=== PATIENT | female | born 1965 | race Hispanic/Latino ===

== ENCOUNTER 2018-05-14 12:58 | Outpatient (CLI) | payer MEDICARE | END 2018-05-14 12:59 | disposition home or self-care (01) | LOC: BICMAMMO 12:58 | PROVIDERS: ATTEND Family Medicine | DX: Z12.31 Encounter for screening mammogram for malignant neoplasm of breast (principal); Z80.3 Family history of malignant neoplasm of breast | CPT/HCPCS: 77063; 77067 ==

== ENCOUNTER 2018-08-30 23:27 | Inpatient (IN) | payer MEDICARE ==
[2018-08-31] MEDS ORDERED: Morphine 4 MG/ML VIAL ONE (00:08)
[2018-08-31] MEDS ORDERED: MEROPENEM 1 GM/50 ML 1 GM in Premix Bag 1 BAG IVPB SCH (00:15)
[2018-08-31] MEDS ORDERED: diphenhydrAMINE 50 MG/ML VIAL ONE (00:30)
[2018-08-31] MEDS ORDERED: Dextrose 50% Abboject 50 ML SYRINGE SLOW IVP PRN ×2 (00:47→08:25)
[2018-08-31] MEDS ORDERED: Dextrose 5% in Water 1,000 ML IV PRN ×2 (00:47→08:25)
[2018-08-31] MEDS ORDERED: Insulin Regular 300 UNITS/3 ML VIAL SC PRN ×2 (00:47)
[2018-08-31] MEDS ORDERED: Sodium Chloride 0.9% 1,000 ML IV SCH (01:00)
--- NOTE | 2018-08-31 07:53 | RAD ---
THREE VIEWS OF THE RIGHT FOOT: DATE: 08/30/2018. COMPARISON: 11/29/2016. HISTORY: Right foot surgery, nonhealing. FINDINGS: There is dislocation of the 5th metatarsophalangeal joint. There is bone loss involving the lateral aspect of the distal portion of the 5th metatarsal with an overlying skin ulceration. No displaced f racture identified. There is soft tissue swelling in the region of the distal 5th metatarsal. IMPRESSION: Soft tissue swelling overlying the region of the distal 5th metatarsal with a skin ulceration. There is also loss of cortical bone involving the distal aspect of the 5th metatarsal which may signify os teomyelitis and there is dislocation of the 5th metatarsophalangeal joint which could represent septi c arthritic. Followup MRI advised. POS: LILIANA
[2018-08-31] MEDS ORDERED: Ondansetron ODT 4 MG TAB PO PRN (08:25)
[2018-08-31] MEDS ORDERED: Zolpidem Tartrate 5 MG TAB PO PRN (08:25)
--- NOTE | 2018-08-31 09:55 | HP ---
PRIMARY CARE PHYSICIAN: Humaira Lutz, Primary Care Provider, referred to the [facility] by [facility] after transferred from [facility]. She is referred for osteomyelitis. The patient states she has a hard callus over the lateral aspect of her right foot. She had surgery on her right foot a year ago with removal of bone, this had healed with this callus. Three days ago, the callus cracked and started oozing pus and blood. She states she has had a low-grade temperature with some chills. She has pain in the foot. She also states that she had amputation of the small toe on the left foot last year, also this was done at [facility] in [place]. PAST MEDICAL HISTORY: Diabetes mellitus, type 2 with chronic kidney disease; hypertension; cardiomyopathy; COPD; peripheral arterial disease. She did not bring her medicines. She was able to remember some of her medicines. It has been requested that she have someone bring her medicines in so that we can see what she is on. ALLERGIES: NO KNOWN DRUG ALLERGIES. PAST SURGICAL HISTORY: She had a coronary artery bypass graft at [facility] in [place] in 2018. She had a cardiac cath here in 2012. She has had a tonsillectomy. She had a femoral-popliteal bypass on the right leg in 2017 here. FAMILY HISTORY: Pertinent for coronary artery disease and diabetes mellitus. SOCIAL HISTORY: . Full code status. , next of kin. Continues to smoke up to one pack a day. Denies alcohol. REVIEW OF SYSTEMS: HEAD: Occasional headache. No dizziness or fainting. EYES: Blurry vision at times. No double vision or flashing lights. EARS, NOSE, AND THROAT: No ear pain or drainage. No nasal bleeding. No trouble swallowing. CARDIAC: No chest pain, orthopnea, or paroxysmal nocturnal dyspnea. RESPIRATION: Occasional dry cough. No wheezing, asthma. GASTROINTESTINAL: She had one episode of nausea and vomiting last evening. No blood. No abdominal pain. No melena. No diarrhea. GENITOURINARY: No hematuria or dysuria. MUSCULOSKELETAL: Pain in her right foot at the site of the ulcer. No swelling in her legs. No specific joint pains. NEUROLOGIC: No strokes, seizures, or focal weakness. PSYCHIATRIC: No anxiety or depression. SKIN: She has the aforementioned callus draining on her lateral right foot. HEME/LYMPH: No tender or swollen lymph nodes in axilla, inguinal, or cervical area. PHYSICAL EXAMINATION: GENERAL: The patient is alert, oriented, cooperative, pleasant lady. VITAL SIGNS: Blood pressure 157/65, pulse 67, respirations 16, temperature 98.1, room air sat 96. HEENT: Examination of her head, eyes, ears, nose, and throat revealed pupils are equal, round, and reactive to light. Extraocular movements are intact. Sclerae white. Tympanic membranes are clear. Nose clear. Oral mucous membranes are wet. Dental hygiene is adequate. NECK: No jugular venous distention, adenopathy, or thyromegaly. CHEST: Clear to auscultation and percussion. HEART: Had a regular rate and rhythm. First and second heart sounds are clear. There are no appreciated murmurs or gallops. ABDOMEN: Soft. Bowel sounds are normal. There is no bruit, masses, or hepatosplenomegaly. EXTREMITIES: Reveal no cyanosis, clubbing, or edema. PULSES: Carotid, radial, and femoral pulses are palpable. Pedal pulses are not palpable. SKIN: Warm and dry with an open callus on the right lateral foot with some off-color drainage. HEME/LYMPH: No tender or swollen lymph nodes in the axilla, inguinal, cervical area. NEUROLOGIC: Cranial nerves II through XII are intact. Moves all extremities. DIAGNOSTIC IMPRESSION: EKG none available. It has been ordered. X-ray of the right foot reveals bone loss and possible osteomyelitis, reviewed by me. Laboratory done here. Sedimentation rate is elevated at 48. Laboratory done in [place] reveals white count of 10.0 with no left shift. Hemoglobin 11.8, platelet count 249,000. C-reactive protein was high at 8.11. Blood sugars were in the 200 to 500 range. Creatinine 2.24, BUN 39, chloride 89, CO2 of 29, sodium 132, potassium 3.9. ADMITTING DIAGNOSES: 1. Osteomyelitis of the right foot. 2. Diabetes mellitus, type 2 with chronic kidney disease stage 3. 3. Coronary artery disease, post coronary artery bypass graft. 4. Peripheral arterial disease, post femoral-popliteal bypass on the right. 5. Chronic obstructive pulmonary disease. 6. Hypertension. 7. Cardiomyopathy. 8. Continuing tobacco usage. PLAN: 1. MRI of the right foot. 2. Consult Dr. Max for peripheral arterial disease. 3. Accu-Chek sliding scale. 4. Hemoglobin A1c. 5. Obtain and reinstitute home medicines. Decision on consulting a surgeon will be made after the MRI. Job ID: [id number]
[2018-08-31] MEDS: Heparin 5,000 UNITS/ML VIAL SC SCH ×3 (10:11→21:17)
[2018-08-31] MEDS: Acetaminophen 325 MG TAB PO PRN ×3 (10:11→23:33)
[2018-08-31 11:47] LABS: Hemoglobin A1c 12.5 % (4.0-6.0)
[2018-08-31] MEDS: HumaLOG 300 UNITS/3 ML VIAL SC PRN ×3 (13:14→21:18)
[2018-08-31] MEDS ORDERED: Heparin 1,000 UNITS/ML VIAL ONE (15:00)
--- NOTE | 2018-08-31 15:57 | MRI ---
MRI OF RIGHT FOOT PERFORMED WITHOUT CONTRAST ENHANCEMENT: History: Right foot ulcer, evaluation for osteomyelitis. Comparison: Plain film examination 08-30-18. FINDINGS: The fifth metatarsal head is essentially absent. There is displacement of the little toe dorsally in relation to what would normally be the expected articulation. There is a soft tissue injury in this r egion. I do not see any evidence of any edema change of either the distal aspect of the fifth metatar venessa or the proximal phalanx of the little toe. The remainder of the metatarsal showed normal signal c gabino. IMPRESSION: Chronic appearing dislocation of the metatarsal phalangeal joint of the little toe with dorsal displa cement of the toe. No evidence for osteomyelitis. POS: LILIANA
--- NOTE | 2018-08-31 17:11 | PDOC.EVN ---
Event Note - Event Note Event Note: MRI ne for oste, start antibx, consult gen surg
--- NOTE | 2018-08-31 18:05 | CON ---
DATE OF CONSULTATION: 08/31/2018 CARDIOLOGY CONSULTATION REASON FOR CONSULTATION: Peripheral vascular disease. HISTORY OF PRESENT ILLNESS: Ms. Colorado is a very pleasant 52-year-old white female, who comes to the hospital for foot pain. She had callus on the right foot and it did not look infected. She actually saw Dr. Max, her primary packer fuser on and she was set up for vascular studies. She ended up noticing that the callus started to become red and it cracked and it started oozing pus and blood, had low-grade temperature with chills, so she decided to come in for evaluation. She has a history of significant peripheral vascular disease with previous femoropopliteal bypass on the right and she has had stents bilaterally in 2017, more recently by Dr. Max. She had an MRI earlier today that showed no evidence of osteomyelitis, so this is just an infected ulcer and she has reduced pulses distally, so Cardiology is being consulted for vascular advice. PAST MEDICAL HISTORY: 1. Type 2 diabetes. 2. Chronic kidney disease. 3. Hypertension. 4. History of ischemic cardiomyopathy, last EF that I can document is 33%. 5. COPD. 6. Peripheral vascular disease. PAST SURGICAL HISTORY: 1. Coronary artery bypass in [facility] in [place] in 2017. 2. Cardiac cath in 2012. 3. Tonsillectomy. 4. Femoropopliteal [place] [address] Mccollum in the right side. SOCIAL HISTORY: Smokes a pack a day. No alcohol. No drugs. OUTPATIENT MEDICATIONS: Include: 1. Entresto 24/ twice a day. 2. Atorvastatin 80 mg daily. 3. Plavix 75 mg a day. 4. Gabapentin 400 mg 3 times a day. 5. Levemir. 6. Ventolin inhaler p.r.n. 7. Iron supplements. 8. Humalog. 9. Coreg 25 mg b.i.d. 10. Aspirin 81 a day. 11. Trazodone 100 p.r.n. 12. Torsemide 20 mg twice a day. 13. Fluoxetine 40 mg a day. 14. Metolazone 5 mg a day. 15. Tizanidine 2 mg three times a day. FAMILY HISTORY: Mother with an PA. Father with an PA. ALLERGIES: NO KNOWN DRUG ALLERGIES. REVIEW OF SYSTEMS: A 12-point review of systems was done and was found to be negative unless stated in the history of present illness. PHYSICAL EXAMINATION: VITAL SIGNS: Temperature 97.6, pulse 73, respiratory rate 16, saturating 90% on room air, and blood pressure 155/65. GENERAL: Awake, alert, and oriented x3. No distress. HEENT: Normocephalic and atraumatic. NECK: Supple. LUNGS: Clear. CARDIOVASCULAR: S1 and S2. No S3 or S4. No murmurs. ABDOMEN: Soft. Positive bowel sounds. EXTREMITIES: No edema. There are reduced pulses, but they are palpable on the DP and PT. There is an ulcer oozing a slight amount of blood on the lateral aspect of the right foot. LABORATORY WORK: ESR was 48, CRP was 8.11. Hemoglobin A1c of 12.5. White count of 10, hemoglobin 11.8, hematocrit 36, platelet count 249. Chemistries with a sodium 132, potassium 3.9, chloride 89, carbon dioxide 29, anion gap 18, BUN 39, and creatinine 2.24, this is the high the creatinine has ever been; looking back, it was 1.76 on August 09; before that, it was throughout 2018 between 1.3 to 1.8. Glucose of 489, alkaline phosphatase of 194, albumin of 3.9, otherwise LFTs were normal. Lactic acid was normal. MRI of the foot was reviewed. ASSESSMENT AND PLAN: 1. Severe peripheral vascular disease. 2. Right lower extremity ulcer. IV antibiotics. No evidence of osteomyelitis on MRI. 3. Technically it is not quite yet nonhealing ulcer as she just developed this recently. 4. Her creatinine is high enough to not be able to do a CT angiogram at this time plus this is going up, so I would not risk injury to the kidneys at this time. 5. If this ulcer does not heal in the next one or two weeks, she may be a candidate for peripheral angiography with CO. This is an outpatient procedure, we would not do this inpatient as this is not available currently right in this hospital. Thank you for letting me to participate in the care of your patient. We will follow. Job ID: [id number]
[2018-08-31] MEDS: Acetaminophen/Codeine 30-300mg Tablet PO PRN ×2 (18:32→23:33)
[2018-08-31] MEDS: cefTRIAXone\\ROCEPHIN 1 GM in Sodium Chloride 0.9% 100 ML IVPB SCH (19:11)
[2018-08-31] MEDS ORDERED: Non-Formulary Item 1 EACH (Insulin Detemir [Levemir] 10 UNIT) SQ SCH (21:00)
[2018-08-31] MEDS: Insulin Glargine 10 UNITS in Pre-Filled Syringe 1 EACH SC SCH (21:16)
[2018-08-31] MEDS: Gabapentin 400 MG CAP PO SCH (21:16)
[2018-08-31] MEDS: Carvedilol 25 MG TAB PO SCH (21:16)
[2018-08-31] MEDS: Atorvastatin Calcium 40 MG TAB PO SCH (21:19)
[2018-08-31] MEDS: Sacubitril 24.5 MG/Valsartan 25.5 MG TABLET PO SCH (21:22)
[2018-09-01] MEDS: Acetaminophen/Codeine 30-300mg Tablet PO PRN ×3 (04:23→23:04)
[2018-09-01 05:47] LABS: #Eosinphils 0.1 thou/uL (0.0-0.7); #Monocytes 0.5 thou/uL (0.11-0.59); #Neutrophils 5.8 thou/uL (1.40-6.50); %Basophils 0.2 % (0.0-1.0); %Eosinophils 1.5 % (0.0-10.0); %Lymphocytes 23.8 % (21.0-51.0); %Monocytes 6.3 % (0.0-10.0); %Neutrophils 68.2 % (42.0-75.0); Hemoglobin 10.2 g/dL (12.0-16.0); Mean Corpuscular HGB CONC 33.6 g/dL (32.0-36.0); Mean Corpuscular Volume 95.3 fL (78.0-98.0); Mean Platelet Volume 8.3 fL (7.4-10.4); Platelet Count 249 thou/uL (130-400); RBC Distribution Width 11.5 % (11.5-14.5); Red Blood Cell (RBC) Count 3.18 mill/uL (4.20-5.40); White Blood Cell (WBC) Count 8.4 thou/uL (4.8-10.8)
[2018-09-01 06:02] LABS: Anion Gap 12 mmol/L (10-20); BUN (Urea Nitrogen) 25 mg/dL (9.8-20.1); Calc. Creatinine Clearance 75 mL/min (70-130); Calcium 8.6 mg/dL (7.8-10.44); Carbon Dioxide 26 mmol/L (22-29); Chloride 102 mmol/L (98-107); Estimated GFR-MDRD 48; Glucose 146 mg/dL (70-105); Potassium 3.8 mmol/L (3.5-5.1); Sodium 136 mmol/L (136-145)
[2018-09-01] MEDS: HumaLOG 300 UNITS/3 ML VIAL SC PRN ×3 (06:06→17:55)
[2018-09-01] MEDS: FLUoxetine HCl 20 MG CAP PO SCH (08:25)
[2018-09-01] MEDS: Sacubitril 24.5 MG/Valsartan 25.5 MG TABLET PO SCH ×2 (08:25→20:38)
[2018-09-01] MEDS: Clopidogrel Bisulfate 75 MG TAB PO SCH (08:25)
[2018-09-01] MEDS: Gabapentin 400 MG CAP PO SCH ×3 (08:26→20:38)
[2018-09-01] MEDS: Carvedilol 25 MG TAB PO SCH ×2 (08:26→20:38)
[2018-09-01] MEDS: Insulin Glargine 10 UNITS in Pre-Filled Syringe 1 EACH SC SCH ×2 (08:27→20:36)
[2018-09-01] MEDS: Heparin 5,000 UNITS/ML VIAL SC SCH (08:27)
[2018-09-01] MEDS ORDERED: Torsemide 20 MG TAB PO SCH (09:00)
--- NOTE | 2018-09-01 12:07 | PDOC.PN ---
- Subjective Encounter Start Date: 09/01/18 (f/u foot infection) Encounter Start Time: 12:05 Subjective: Pt c/o swelling in hands/arms/eyelids that is new. RN notes that pt -: received IVF in ER and on arrival to floor yesterday - Objective Resuscitation Status - Order Detail: 08/31/18 08:22 Resuscitation Status Routine Resuscitation Status: FULL: Full Resuscitation Vital Signs & Weight: Vital Signs (12 hours) Temp Pulse Resp BP Pulse Ox 09/01/18 11:00 98.1 F 69 14 143/64 H 09/01/18 07:00 98.1 F 67 14 135/60 93 L 09/01/18 04:20 97.8 F 79 18 116/62 92 L Weight Admit Weight 190 lb 14.4 oz Weight 190 lb 14.725 oz Result Diagrams: 09/01/18 05:17 09/01/18 05:17 Additional Labs: Accuchecks 09/01/18 08/31/18 08/31/18 06:06 21:03 16:32 POC Glucose 151 H 237 H 354 H Phys Exam - Physical Examination Constitutional: NAD Respiratory: no wheezing bilateral rales Cardiovascular: RRR 2/6 SANNA throughout Gastrointestinal: soft, non-tender, positive bowel sounds edema in hands left > right, no edema in bilateral feet Deviation from normal: wound on right lateral foot is dressed Dx/Plan (1) Diabetic foot ulcer Code(s): E11.621 - TYPE 2 DIABETES MELLITUS WITH FOOT ULCER; L97.509 - NON- PRESSURE CHRONIC ULCER OTH PRT UNSP FOOT W UNSP SEVERITY Status: Acute Qualifiers: Diabetes mellitus type: type 2 Laterality: right Non-pressure ulcer stage : unspecified non-pressure ulcer stage (2) Acute on chronic systolic (congestive) heart failure Code(s): I50.23 - ACUTE ON CHRONIC SYSTOLIC (CONGESTIVE) HEART FAILURE Status : Acute (3) Peripheral vascular disease Code(s): I73.9 - PERIPHERAL VASCULAR DISEASE, UNSPECIFIED Status: Chronic (4) Diabetes mellitus Code(s): E11.9 - TYPE 2 DIABETES MELLITUS WITHOUT COMPLICATIONS Status: Chronic Qualifiers: Diabetes mellitus type: type 2 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 Ordered another dose for the AM as well, and titrate to effect. Hold oral torsemide * transfer to tele for monitoring * monitor potassium * continue current abx and Gen Surgery following - pt s/p eval by Dr. Aguilar * continue other home meds * renal function improved today - monitor with diuresis * * dvt prophy - change to lovenox with renal dosing * gi prophy - not indicated * code status full * * reviewed plan of care with patient, no questions or further needs at end of eval
[2018-09-01] MEDS ORDERED: Furosemide 100 MG/10 ML VIAL SLOW IVP SCH (12:15)
[2018-09-01] MEDS ORDERED: Sodium Chloride 0.9% 10 ML ONE (13:32)
--- NOTE | 2018-09-01 15:15 | CON ---
DATE OF CONSULTATION: 09/01/2018 REQUESTING PHYSICIAN: Dr. Gill. PRIMARY CARE PHYSICIAN: Dr. Humaira Lutz. CHIEF COMPLAINT: Open draining wound, right foot. HISTORY OF PRESENT ILLNESS: The patient is a 52-year-old diabetic smoker, who has become something of a vasculopath in the spring. She presented with nonhealing wounds on her right foot and she was found to have an occluded right superficial femoral artery, although her arteriogram report describes three-vessel runoff to the foot. It notes that the posterior tibial artery was a small caliber vessel and had a high-grade stenosis at proximally. She underwent right suprageniculate femoral-popliteal bypass with reverse greater saphenous vein harvested from the ipsilateral leg and while her pedal pulses were not palpable, she had a palpable popliteal pulse and strongly dopplerable pulses in her dorsalis pedis, posterior tibial, and peroneal in the foot. Postoperatively, she healed her wounds. She recently presented with a callus at the lateral base of her right 5th toe at the MP joint. It cracked and drained purulent material. Discussions with Dr. Gill, who asked me to see the patient indicate that it seems to track somewhat, but there is no conclusive evidence of osteomyelitis seen on MRI. PAST MEDICAL HISTORY: Significant for hypertension, diabetes mellitus, coronary artery disease, having undergone coronary artery bypass grafting at [facility] in [place] in 2018, peripheral vascular disease in addition to the femoral-popliteal procedure in November of 2016. She reports having undergone lower extremity stenting procedures in [place] in 2018. HOME MEDICATIONS: 1. Coreg 25 mg b.i.d. 2. Lipitor 80 mg a day. 3. Plavix 75 mg a day. 4. Neurontin 400 mg t.i.d. 5. Prozac 40 mg a day. 6. Levemir insulin 10 units b.i.d. 7. Torsemide 40 mg a day. 8. Entresto one b.i.d. ALLERGIES: SHE DENIES ANY MEDICAL ALLERGIES. SOCIAL HISTORY: She continues to smoke about a pack of cigarettes a day. FAMILY HISTORY: Significant for coronary artery disease and diabetes mellitus. REVIEW OF SYSTEMS: Positive for some paresthesias in both feet and both upper arms. She denies any transient eye, speech, facial, or extremity symptoms consistent with TIAs. PHYSICAL EXAMINATION: GENERAL: She is in no distress and appears roughly 10 years older than her stated age. HEENT: She has no obvious xanthelasma. She has no JVD. She has bilateral carotid bruits. CHEST: Clear to auscultation. CARDIAC: She has a regular rate and rhythm. ABDOMEN: Soft, nontender. EXTREMITIES: She has palpable femoral pulses bilaterally, but I am not able to appreciate popliteal or pedal pulses. Capillary refill in her feet is about 1 second or perhaps a little bit less. She has about a cm open wound that almost seems to represent sloughing of callus over the right MP head with the resultant full-thickness wound, that wound is somewhat soupy. I am not able to clearly palpate or see any bone or cartilage within the wound. Plain films show a dislocation of the MP joint with some loss of cortex in the bone, but there are no changes on MRI to suggest osteomyelitis. LABORATORY DATA: Her white count was 10.0 on the night of the and was 8.4 this morning. Hemoglobin this morning was 10.2, platelets 249,000. On admission, her glucose was 489, BUN 39, creatinine 2.24. Alkaline phosphatase was 194, otherwise her LFTs were normal. Albumin was 3.9. This morning, her BUN is 25 and creatinine is 1.18, the glucose of 146. Her blood sugars have been ranging from about 150 to 350. Her hemoglobin A1c yesterday was 12.5. IMPRESSION AND RECOMMENDATIONS: The patient is probably going to need some degree of debridement, even if it is not much more involved than what wound care could take care of at the bedside for local wound care in terms of vascularity. I think she has adequate vascularity to heal what is ever necessary to deal with this wound locally. She has already established herself with Dr. Max. At this point, the noninterventional evaluation and management that I would be able to offer as well within his purview and at this point, I do not think she needs any intervention that I could offer that he could not, so I will be available on a p.r.n. basis. She probably ought to have carotid Dopplers of those have not been done recently. She certainly is doing herself no favors by continuing to smoke and needs to stop. She needs to have better control of her diabetes. Job ID: [id number]
--- NOTE | 2018-09-01 16:34 | PDOC.CTH ---
Cardiology Progress Note - Subjective More SOB today. Still has severe pain on foot. - Objective Vital Signs Temp Pulse Resp BP Pulse Ox 09/01/18 14:41 94 L 09/01/18 11:00 98.1 F 69 14 143/64 H 09/01/18 07:00 98.1 F 67 14 135/60 93 L Admit Weight 190 lb 14.4 oz Weight 180 lb 11.2 oz - Physical Examination General/Neuro: alert & oriented x3, NAD Neck: no JVD present Lungs: unlabored respirations, other: (Crackles at bases.) Heart: RRR Abdomen: NT/ND Extremities: + edema B (1+) - Telemetry Telemetry Rhythm: NSR - Labs Result Diagrams: 09/01/18 05:17 09/01/18 05:17 - Assessment/Plan 1. Foot ulcer, infected 2. Severe PVD. 3. RHONDA on CKD, improved,. 4. Acute on chronic systolic heart failure 5. Dilated CM Ef at 30-35% PLAN: - Continue IV abx and wound care - Agree with transfer to telemetry and IV lasix. - If creatinine remains stable may be able to do CT angiogram or more invasive intervention only if her wound is not healing, currently day 4.
--- NOTE | 2018-09-01 17:15 | PDOC.GSPN ---
Surgery Progress Note: Subj - Subjective Narrative: Patient was transferred to telemetry due to concerns of worsening heart failure and fluid overload. She is having a little less pain in her foot.The wound is clean without expressible purulence and the tissues look a little healthier. She still has some cellulitis. Vascular supply appears to be adequate to heal the wound per Dr. Calloway's evaluation. Continue current management. Surgery Progress Note: Obj - Vital signs Vital signs: Vital Signs - Most Recent Temp Pulse Resp BP Pulse Ox 98.5 F 72 18 144/60 H 93 L 09/01/18 16:52 09/01/18 16:52 09/01/18 16:52 09/01/18 16:52 09/01/18 16:52 Surgery Progress Note: Results - Labs Result Diagrams: 09/01/18 05:17 09/01/18 05:17 Lab results: Laboratory Results - last 24 hr 09/01/18 09/01/18 09/01/18 05:17 05:17 06:06 WBC 8.4 RBC 3.18 L Hgb 10.2 L Hct 30.3 L MCV 95.3 MCH 32.0 H MCHC 33.6 RDW 11.5 Plt Count 249 MPV 8.3 Neutrophils % 68.2 Lymphocytes % 23.8 Monocytes % 6.3 Eosinophils % 1.5 Basophils % 0.2 Neutrophils # 5.8 Lymphocytes # 2.0 Monocytes # 0.5 Eosinophils # 0.1 Basophils # 0.0 Sodium 136 Potassium 3.8 Chloride 102 Carbon Dioxide 26 Anion Gap 12 BUN 25 H Creatinine 1.18 H Estimated GFR (MDRD) 48 Glucose 146 H POC Glucose 151 H Calcium 8.6 09/01/18 12:32 WBC RBC Hgb Hct MCV MCH MCHC RDW Plt Count MPV Neutrophils % Lymphocytes % Monocytes % Eosinophils % Basophils % Neutrophils # Lymphocytes # Monocytes # Eosinophils # Basophils # Sodium Potassium Chloride Carbon Dioxide Anion Gap BUN Creatinine Estimated GFR (MDRD) Glucose POC Glucose 213 H Calcium
[2018-09-01] MEDS: cefTRIAXone\\ROCEPHIN 1 GM in Sodium Chloride 0.9% 100 ML IVPB SCH (18:23)
[2018-09-01] MEDS: Enoxaparin Sodium 30 MG/0.3 ML SYRINGE SC SCH (20:37)
[2018-09-01] MEDS: Atorvastatin Calcium 40 MG TAB PO SCH (20:38)
[2018-09-02 05:56] LABS: Anion Gap 17 mmol/L (10-20); BUN (Urea Nitrogen) 26 mg/dL (9.8-20.1); Calc. Creatinine Clearance 70 mL/min (70-130); Calcium 8.7 mg/dL (7.8-10.44); Carbon Dioxide 25 mmol/L (22-29); Chloride 98 mmol/L (98-107); Estimated GFR-MDRD 47; Glucose 173 mg/dL (70-105); Potassium 3.6 mmol/L (3.5-5.1); Sodium 136 mmol/L (136-145)
[2018-09-02] MEDS ORDERED: Furosemide 100 MG/10 ML VIAL SLOW IVP SCH (09:00)
[2018-09-02] MEDS ORDERED: Metolazone 5 MG TAB PO SCH (09:00)
--- NOTE | 2018-09-02 09:11 | PDOC.PN ---
- Subjective Encounter Start Date: 09/02/18 (f/u heart failure) Encounter Start Time: 09:08 Subjective: Pt restless last night - takes trazodone at home, not ordered here -: denies any cp, breathing feels good and swelling improved -: she also takes 20 units levemir twice daily - Objective Resuscitation Status - Order Detail: 08/31/18 08:22 Resuscitation Status Routine Resuscitation Status: FULL: Full Resuscitation Vital Signs & Weight: Vital Signs (12 hours) Temp Pulse Resp BP Pulse Ox 09/02/18 03:05 99.4 F 73 12 129/58 L 95 09/02/18 00:00 73 20 153/63 H Weight Admit Weight 190 lb 14.4 oz Weight 178 lb 14.4 oz I&O: 09/01/18 09/02/18 09/03/18 06:59 06:59 06:59 Intake Total 580 Output Total 600 Balance -20 Result Diagrams: 09/01/18 05:17 09/02/18 04:39 Additional Labs: Accuchecks 09/02/18 09/01/18 09/01/18 05:24 20:22 17:01 POC Glucose 169 H 329 H 309 H 09/01/18 12:32 POC Glucose 213 H EKG Reviewed by me: Yes (tele - sinus 70's) Phys Exam - Physical Examination Constitutional: NAD Respiratory: no wheezing, no rhonchi faint basilar rales bilateral Cardiovascular: RRR, no significant murmur Gastrointestinal: soft, no distention, positive bowel sounds no edema in LE, slight in UE Neurological: non-focal, moves all 4 limbs Psychiatric: normal affect Dx/Plan (1) Diabetic foot ulcer Code(s): E11.621 - TYPE 2 DIABETES MELLITUS WITH FOOT ULCER; L97.509 - NON- PRESSURE CHRONIC ULCER OTH PRT UNSP FOOT W UNSP SEVERITY Status: Acute Qualifiers: Diabetes mellitus type: type 2 Laterality: right Non-pressure ulcer stage : unspecified non-pressure ulcer stage (2) Acute on chronic systolic (congestive) heart failure Code(s): I50.23 - ACUTE ON CHRONIC SYSTOLIC (CONGESTIVE) HEART FAILURE Status : Acute (3) Peripheral vascular disease Code(s): I73.9 - PERIPHERAL VASCULAR DISEASE, UNSPECIFIED Status: Chronic (4) Diabetes mellitus Code(s): E11.9 - TYPE 2 DIABETES MELLITUS WITHOUT COMPLICATIONS Status: Chronic Qualifiers: Diabetes mellitus type: type 2 Diabetes mellitus alf insulin use: with alf use Chronic kidney disease stage: stage 3 (moderate) (5) HLD (hyperlipidemia) Code(s): E78.5 - HYPERLIPIDEMIA, UNSPECIFIED Status: Chronic Qualifiers: (6) HTN (hypertension) Code(s): I10 - ESSENTIAL (PRIMARY) HYPERTENSION Status: Chronic Qualifiers: - Plan * adjust long-acting insulin to home dosing and continue SSI * add trazodone * continue IV lasix today - anticipate we may be able to change back to torsemide tomorrow * continue to monitor renal function and potassium levels * * Appreciate Cardiology - following for known PVD as well as heart failure * Appreciate Gen Surgery - following foot wound which is packed to see if further debridement is warranted. Continue current abx - pt on doxycycline and Rocephin * * dvt prophy - renal dosing for lovenox * gi prophy - not indicated * code status full * * reviewed plan of care wiht patient, no questions or further needs at end of eval * pt remains at high risk in curernt condition
[2018-09-02] MEDS ORDERED: Insulin Glargine 20 UNITS in Pre-Filled Syringe 1 EACH SC SCH (10:15)
[2018-09-02] MEDS: Gabapentin 400 MG CAP PO SCH ×3 (10:48→20:34)
[2018-09-02] MEDS: Carvedilol 25 MG TAB PO SCH ×2 (10:49→20:34)
[2018-09-02] MEDS: FLUoxetine HCl 20 MG CAP PO SCH (10:49)
[2018-09-02] MEDS: Clopidogrel Bisulfate 75 MG TAB PO SCH (10:49)
[2018-09-02] MEDS: Sacubitril 24.5 MG/Valsartan 25.5 MG TABLET PO SCH ×2 (10:50→20:34)
[2018-09-02] MEDS: Insulin Glargine 10 UNITS in Pre-Filled Syringe 1 EACH SC SCH (10:57)
[2018-09-02] MEDS: HumaLOG 300 UNITS/3 ML VIAL SC PRN ×2 (10:58→17:47)
[2018-09-02] MEDS: Acetaminophen/Codeine 30-300mg Tablet PO PRN ×2 (16:13→20:34)
[2018-09-02] MEDS: cefTRIAXone\\ROCEPHIN 1 GM in Sodium Chloride 0.9% 100 ML IVPB SCH (17:39)
--- NOTE | 2018-09-02 18:29 | PDOC.CTH ---
Cardiology Progress Note - Subjective Breathing more comfortably after IV lasix. - Objective Vital Signs Temp Pulse Resp BP Pulse Ox 09/02/18 16:06 98.1 F 74 16 138/58 L 97 09/02/18 11:20 98.6 F 75 16 123/60 92 L 09/02/18 07:50 98.1 F 68 13 134/60 93 L Admit Weight 190 lb 14.4 oz Weight 178 lb 14.4 oz 09/01/18 09/02/18 09/03/18 06:59 06:59 06:59 Intake Total 580 Output Total 600 Balance -20 - Physical Examination General/Neuro: alert & oriented x3, NAD Neck: no JVD present Lungs: unlabored respirations Heart: RRR Abdomen: NT/ND Extremities: other: (no edema) - Telemetry Telemetry Rhythm: NSR - Labs Result Diagrams: 09/01/18 05:17 09/02/18 04:39 - Assessment/Plan 1. Foot ulcer, infected 2. Severe PVD. 3. RHONDA on CKD, improved,. 4. Acute on chronic systolic heart failure 5. Dilated CM Ef at 30-35% PLAN: - Continue IV abx and wound care - Would switch her diuresis to daily torsmeide home dose. - If creatinine remains stable may be able to do CT angiogram or more invasive intervention only if her wound is not healing, currently day 5.
[2018-09-02] MEDS ORDERED: Sodium Chloride 0.9% 10 ML ONE (20:19)
[2018-09-02] MEDS: Atorvastatin Calcium 40 MG TAB PO SCH (20:34)
[2018-09-02] MEDS: traZODone HCl 50 MG TAB PO SCH (20:34)
[2018-09-02] MEDS: Enoxaparin Sodium 30 MG/0.3 ML SYRINGE SC SCH (20:34)
[2018-09-02] MEDS: Insulin Glargine 20 UNITS in Pre-Filled Syringe 1 EACH SC SCH (20:36)
--- NOTE | 2018-09-02 22:18 | PDOC.GSPN ---
Surgery Progress Note: Subj - Subjective Narrative: Patient feels like her foot is feeling a little bit better. The dressing has been changed yet today. I took the dressing down. Was looking better around the edges but there is some sloughing necrotic material in the base and when I probe this there was palpable bone. This appeared to be the proximal phalanx of the small toe. No expressible purulence. The cellulitis is a little better. Assessment/plan: Neurotrophic wound of the right fifth metatarsal head. The patient has an ulcer under the callus with necrotic tissue and exposed bone. I recommended right fifth toe amputation. The patient is in agreement with this plan. She understands that the wound will be left open postoperatively to heal by secondary intent, likely with a VAC dressing. If the tissues appear poorly perfused at this level, her manufacturing project manager may opt to do another angiogram. Surgery Progress Note: Obj - Vital signs Vital signs: Vital Signs - Most Recent Temp Pulse Resp BP Pulse Ox 98.5 F 74 16 115/53 L 93 L 09/02/18 20:30 09/02/18 20:30 09/02/18 20:30 09/02/18 20:30 09/02/18 20:30 Surgery Progress Note: Results - Labs Result Diagrams: 09/01/18 05:17 09/02/18 04:39 Lab results: Laboratory Results - last 24 hr 09/02/18 09/02/18 09/02/18 10:23 16:47 20:20 POC Glucose 256 H 264 H 243 H
[2018-09-03 06:41] LABS: Anion Gap 16 mmol/L (10-20); BUN (Urea Nitrogen) 35 mg/dL (9.8-20.1); Calc. Creatinine Clearance 55 mL/min (70-130); Calcium 8.9 mg/dL (7.8-10.44); Carbon Dioxide 27 mmol/L (22-29); Chloride 100 mmol/L (98-107); Estimated GFR-MDRD 36; Glucose 197 mg/dL (70-105); Potassium 3.4 mmol/L (3.5-5.1); Sodium 140 mmol/L (136-145)
[2018-09-03] MEDS: Torsemide 20 MG TAB PO SCH (08:20)
[2018-09-03] MEDS: Carvedilol 25 MG TAB PO SCH ×2 (08:20→20:15)
[2018-09-03] MEDS: Gabapentin 400 MG CAP PO SCH ×3 (08:20→20:15)
[2018-09-03] MEDS: Acetaminophen 325 MG TAB PO PRN (08:21)
[2018-09-03] MEDS: Sacubitril 24.5 MG/Valsartan 25.5 MG TABLET PO SCH ×2 (08:21→20:16)
[2018-09-03] MEDS: FLUoxetine HCl 20 MG CAP PO SCH (08:21)
[2018-09-03] MEDS: Clopidogrel Bisulfate 75 MG TAB PO SCH (08:21)
[2018-09-03] MEDS: Insulin Glargine 20 UNITS in Pre-Filled Syringe 1 EACH SC SCH ×2 (08:22→21:41)
--- NOTE | 2018-09-03 09:52 | CON ---
DATE OF CONSULTATION: REASON FOR CONSULT: Right foot wound. HISTORY: Ms. Colorado is a 52-year-old woman, who had undergone bilateral foot surgery. She had an amputation on the left and resection of a bone on the right with closure of the wound. She states that it heals, but that she had a chronic callus in the area, which has been present since that time. On Monday, she said the callus cracked and started oozing fluid and blood and she developed a low-grade fever and pain and some redness in the foot. She saw her collaborating supervising physician on Monday and at that point, the digits appear affected, but the pain and redness got worse over the next few days, so she came to the hospital and was admitted. PAST MEDICAL HISTORY: Includes uncontrolled diabetes, chronic renal insufficiency, hypertension, heart disease, peripheral vascular disease, cardiomyopathy, and COPD. PAST SURGICAL HISTORY: The patient states that she has had angioplasty and stenting on both lower extremities "all the way down." She has had coronary artery bypass grafting with saphenous vein harvest and a right femoral-popliteal bypass using saphenous vein. ALLERGIES: SHE HAS NO KNOWN DRUG ALLERGIES. MEDICATIONS: Home medications include; 1. Atorvastatin. 2. Carvedilol. 3. Plavix. 4. Fluoxetine. 5. Gabapentin. 6. Levemir. 7. Metolazone. 8. Entresto. 9. Torsemide. Medications since admission include; 1. Atorvastatin. 2. Carvedilol. 3. Ceftriaxone. 4. Plavix. 5. Doxycycline. 6. Fluoxetine. 7. Gabapentin. 8. Glucagon. 9. Subcu heparin. 10. Glargine. 11. Sliding-scale insulin. 12. Metolazone. 13. Entresto. 14. Torsemide. 15. Multiple p.r.n.'s. REVIEW OF SYSTEMS: Negative except per HPI. FAMILY HISTORY: Family history of heart disease and diabetes. SOCIAL HISTORY: The patient is still smoking. Does not drink or use illicit drugs. IMAGING DATA: MRI was negative for osteomyelitis in the right foot. LABORATORY DATA: White count is high normal. BUN and creatinine on admission were 39 and 2.24. Alkaline phosphatase is elevated at 194, but other LFTs were normal and electrolytes were unremarkable. Admitting glucose is 489. PHYSICAL EXAMINATION: GENERAL: Reveals an anxious-appearing woman, in no acute distress. She is not flushed or toxic in appearance. She is not jaundiced or icteric. HEENT: Unremarkable. NECK: Supple without lymphadenopathy. HEART: Regular in its rate and rhythm without murmurs, rubs, or gallops. She has a healed sternotomy. LUNGS: Clear to auscultation bilaterally. ABDOMEN: Soft, nontender, and nondistended without palpable masses or hernias. EXTREMITIES: [place] with normal capillary refill. I cannot definitely appreciate any pedal pulses on either foot. I think I feel faint popliteal pulses bilaterally, but I cannot definitely feel a pulse in her femoral-popliteal bypass on the right. The left 5th toe amputation site is well healed. The right foot has a callus on the lateral 5th metatarsal area, which is partially detached. She has some mild erythema extending upon to the midfoot and there is an ulcer under the callus. ASSESSMENT AND PLAN: Neurotrophic ulcer due to callus on right 5th metatarsal area without evidence of underlying osteomyelitis on MRI. I recommended debriding the wound at the bedside, which was done. The right foot was prepped with Betadine and the partially detached callus sharply excised with scissors. The underlying tissue was dark in color, but there were no exposed bone and no expressible pus. This was partially debrided, but the patient did not tolerate much debridement due to pain in the foot. ADDENDUM: I was describing the debridements of the wound. It was difficult to tell if the underlying tissues were necrotic or simply hemorrhagic. We are going to do wound packing and dressing changes for a couple of days and see how it looks at that point. If we are unable to adequately debride it, the dressing changes and bedside debridement. She may need to go to the operating room for open debridement. I will continue to follow the patient with wound care. Job ID: [id number]
[2018-09-03] MEDS ORDERED: Fentanyl 100 MCG/2 ML VIAL ONE ×3 (11:43→17:20)
[2018-09-03] MEDS ORDERED: Famotidine/PF 20 mg/2ml Vial ONE (11:43)
[2018-09-03] MEDS ORDERED: Bupivacaine HCl 0.25%/Epi 0.0005/PF 10 ML VIAL FS ONE (11:56)
[2018-09-03] MEDS ORDERED: Neomycin-Polymyxin 1 ML AMP ONE (11:57)
[2018-09-03] MEDS ORDERED: Promethazine HCl 25 MG/ML VIAL SLOW IVP PRN ×2 (12:44→16:21)
[2018-09-03] MEDS ORDERED: Ondansetron HCl/PF 4 MG/2 ML Vial IVP PRN ×2 (12:44→16:21)
[2018-09-03] MEDS ORDERED: Morphine 4 MG/ML VIAL ONE (13:25)
[2018-09-03] MEDS ORDERED: ePHEDrine/0.9% NaCl/PF SYRINGE 50 mg/10 ml ONE (13:57)
[2018-09-03] MEDS ORDERED: PHENYLEPHRINE-NS 100 MCG/ML 10 ML SYRINGE ONE (13:57)
[2018-09-03] MEDS ORDERED: Ondansetron PF 4 MG/2 ML Vial ONE (13:57)
[2018-09-03] MEDS ORDERED: Lidocaine 1% PF 5 ML VIAL ONE (13:57)
[2018-09-03] MEDS ORDERED: PROPOFOL 200 MG/20 ML VIAL ONE (13:57)
[2018-09-03] MEDS ORDERED: PACU-Morphine 4MG/ML VIAL SLOW IVP PRN (16:21)
[2018-09-03] MEDS ORDERED: Promethazine HCl 25 MG/ML VIAL IM PRN (16:21)
--- NOTE | 2018-09-03 18:00 | PRG ---
DATE OF SERVICE: SUBJECTIVE: Ms. [place] is recently getting prep for surgery. She is to undergo right fifth toe amputation. She has no current complaints. OBJECTIVE: VITAL SIGNS: Blood pressure 114/54, pulse 69, and temperature 97.9. LUNGS: Clear to auscultation. HEART: Regular rate and rhythm. ABDOMEN: Soft, nontender, and nondistended. EXTREMITIES: No edema. IMPRESSION: Severe peripheral vascular disease. RECOMMENDATIONS: Ms. [place] has had revascularization with stent placement within the last year. She has no popliteal pulses bilaterally. She likely has completed occlusion of the SFA. She will undergo amputation. We will discuss case with Dr. Gill. May need to see how she does in the next several days. If she continues to heal with granulation tissue, may defer proceeding with any further intervention, but likely will need intervention to her SFA. I discussed with Ms. [place]. She is in agreement. Otherwise, no further recommendations. Job ID: [id number]
[2018-09-03] MEDS: Cefepime 2 GM in Sodium Chloride 0.9% 100 ML IVPB SCH (19:08)
[2018-09-03] MEDS: Atorvastatin Calcium 40 MG TAB PO SCH (20:15)
[2018-09-03] MEDS: Enoxaparin Sodium 30 MG/0.3 ML SYRINGE SC SCH (20:15)
[2018-09-03] MEDS: Acetaminophen/Codeine 30-300mg Tablet PO PRN (20:16)
[2018-09-03] MEDS: traZODone HCl 50 MG TAB PO SCH (20:16)
[2018-09-03] MEDS: HumaLOG 300 UNITS/3 ML VIAL SC PRN (21:41)
--- NOTE | 2018-09-03 21:43 | PDOC.PN ---
- Subjective Encounter Start Date: 09/03/18 Encounter Start Time: 17:00 Patient seen and examined for diabetic foot infection with CHF. No new complaints. No overnight events - Objective Resuscitation Status - Order Detail: 08/31/18 08:22 Resuscitation Status Routine Resuscitation Status: FULL: Full Resuscitation MAR Reviewed: Yes Vital Signs & Weight: Vital Signs (12 hours) Temp Pulse Resp BP BP Pulse Ox 09/03/18 19:59 97.7 F 72 20 114/74 100 09/03/18 18:30 97.8 F 68 18 108/67 97 Weight Admit Weight 190 lb 14.4 oz Weight 178 lb 4.8 oz I&O: 09/02/18 09/03/18 09/04/18 06:59 06:59 06:59 Intake Total 580 270 Output Total 600 500 Balance -20 -230 Result Diagrams: 09/04/18 07:06 09/04/18 07:06 Additional Labs: Accuchecks 09/03/18 09/03/18 21:20 05:10 POC Glucose 203 H 228 H Phys Exam - Physical Examination Constitutional: NAD Respiratory: no wheezing, no rhonchi Cardiovascular: RRR, no rub Gastrointestinal: soft, non-tender, positive bowel sounds Musculoskeletal: no edema dressing + Neurological: moves all 4 limbs Dx/Plan (1) Diabetic foot ulcer Code(s): E11.621 - TYPE 2 DIABETES MELLITUS WITH FOOT ULCER; L97.509 - NON- PRESSURE CHRONIC ULCER OTH PRT UNSP FOOT W UNSP SEVERITY Status: Acute Qualifiers: Diabetes mellitus type: type 2 Laterality: right Non-pressure ulcer stage : unspecified non-pressure ulcer stage Comment: s/p toe amputation (2) Acute on chronic systolic (congestive) heart failure Code(s): I50.23 - ACUTE ON CHRONIC SYSTOLIC (CONGESTIVE) HEART FAILURE Status : Acute Comment: ACC stage C - improved (3) DM2 (diabetes mellitus, type 2) Status: Chronic Qualifiers: Chronic kidney disease stage: stage 3 (moderate) (4) Peripheral vascular disease Code(s): I73.9 - PERIPHERAL VASCULAR DISEASE, UNSPECIFIED Status: Chronic (5) HLD (hyperlipidemia) Code(s): E78.5 - HYPERLIPIDEMIA, UNSPECIFIED Status: Chronic Qualifiers: (6) HTN (hypertension) Code(s): I10 - ESSENTIAL (PRIMARY) HYPERTENSION Status: Chronic Qualifiers: (7) Other issues per previous notes - Plan cont current plan of care, DVT proph w/SCDs Change Atbx to Cefepime due to Pseudomonas in wound -: AM labs -: Cont other meds as below -: Cont wound care Review of Systems - Review of Systems Respiratory: negative: Cough, Dry, Shortness of Breath, Hemoptysis, SOB with Excertion, Pleuritic Pain, Sputum, Wheezing Cardiovascular: negative: chest pain, palpitations, orthopnea, paroxysmal nocturnal dyspnea, edema, light headedness, other - Medications/Allergies Allergies/Adverse Reactions: Allergies Allergy/AdvReac Type Severity Reaction Status Date / Time No Known Allergies Allergy Verified 11/29/16 23:41 Medications: Current Medications Acetaminophen (Tylenol) 650 mg PO Q4H PRN PRN Reason: Headache/Fever/Mild Pain (1-3) Last Admin: 09/03/18 08:21 Dose: 650 mg Acetaminophen/Codeine Phosphate (Tylenol #3) 1 tab PO Q4H PRN PRN Reason: Moderate Pain (4-6) Last Admin: 09/03/18 20:16 Dose: 1 tab Atorvastatin Calcium (Lipitor) 80 mg PO HS [facility] Last Admin: 09/03/18 20:15 Dose: 80 mg Carvedilol (Coreg) 25 mg PO BID [facility] Last Admin: 09/03/18 20:15 Dose: 25 mg Clopidogrel Bisulfate (Plavix) 75 mg PO QAM [facility] Last Admin: 09/03/18 08:21 Dose: 75 mg Dextrose/Water (Dextrose 50%) 25 gm SLOW IVP PRN PRN PRN Reason: Hypoglycemia Enoxaparin Sodium (Lovenox) 30 mg SC 2100 [facility] Last Admin: 09/03/18 20:15 Dose: 30 mg Fluoxetine HCl (Prozac) 40 mg PO DAILY [facility] Last Admin: 09/03/18 08:21 Dose: 40 mg Gabapentin (Neurontin) 400 mg PO TID [facility] Last Admin: 09/03/18 20:15 Dose: 400 mg Glucagon (Glucagon) 1 mg IM PRN PRN PRN Reason: Hypoglycemia Dextrose/Water (D5w) 1,000 mls @ 0 mls/hr IV .Q0M PRN PRN Reason: Hypoglycemia Doxycycline Hyclate 100 mg/ (Sodium Chloride) 100 mls @ 100 mls/hr IVPB 0800, 2000 [facility] Last Admin: 09/03/18 20:14 Dose: 100 mls Insulin Glargine 20 units/ (Miscellaneous Medication) 0.2 mls @ 0 mls/hr SC BID [facility] Last Admin: 09/03/18 08:22 Dose: Not Given Cefepime HCl 2 gm/ Sodium (Chloride) 100 mls @ 100 mls/hr IVPB 0500,1700 [facility] Last Admin: 09/03/18 19:08 Dose: 100 mls Insulin Human Lispro (Humalog) 0 units SC .MODERATE SLIDING SC PRN PRN Reason: Moderate Correctional Scale Last Admin: 09/02/18 17:47 Dose: 6 unit Metolazone (Zaroxolyn) 5 mg PO Love@0900 [facility] Last Admin: 09/02/18 10:48 Dose: 5 mg Ondansetron HCl (Zofran Odt) 4 mg PO Q6H PRN PRN Reason: Nausea/Vomiting Sacubitril/Valsartan (Entresto 24.5 Mg-25.5 Mg Tablet) 1 tab PO BID [facility] Last Admin: 09/03/18 20:16 Dose: 1 tab Sodium Chloride (Flush - Normal Saline) 10 ml IVF Q12HR [facility] Sodium Chloride (Flush - Normal Saline) 10 ml IVF PRN PRN PRN Reason: Saline Flush Torsemide (Demadex) 40 mg PO DAILY [facility] Last Admin: 09/03/18 08:20 Dose: 40 mg Trazodone HCl (Desyrel) 100 mg PO HS [facility] Last Admin: 09/03/18 20:16 Dose: 100 mg Zolpidem Tartrate (Ambien) 5 mg PO HSPRN PRN PRN Reason: Insomnia
[2018-09-04] MEDS: Acetaminophen/Codeine 30-300mg Tablet PO PRN ×6 (00:48→23:33)
[2018-09-04] MEDS: Cefepime 2 GM in Sodium Chloride 0.9% 100 ML IVPB SCH ×2 (06:17→16:23)
[2018-09-04] MEDS: HumaLOG 300 UNITS/3 ML VIAL SC PRN ×4 (06:25→21:44)
[2018-09-04 07:25] LABS: #Eosinphils 0.1 thou/uL (0.0-0.7); #Lymphocytes 1.9 thou/uL (1.20-3.40); #Monocytes 0.7 thou/uL (0.11-0.59); %Basophils 0.2 % (0.0-1.0); %Eosinophils 1.2 % (0.0-10.0); %Lymphocytes 21.5 % (21.0-51.0); %Monocytes 7.5 % (0.0-10.0); %Neutrophils 69.6 % (42.0-75.0); Hemoglobin 10.8 g/dL (12.0-16.0); Mean Corpuscular Hemoglobin 31.4 pg (27.0-31.0); Mean Corpuscular Volume 95.4 fL (78.0-98.0); Mean Platelet Volume 7.8 fL (7.4-10.4); Platelet Count 300 thou/uL (130-400); RBC Distribution Width 11.5 % (11.5-14.5); Red Blood Cell (RBC) Count 3.45 mill/uL (4.20-5.40); White Blood Cell (WBC) Count 8.7 thou/uL (4.8-10.8)
[2018-09-04 07:53] LABS: Anion Gap 20 mmol/L (10-20); BUN (Urea Nitrogen) 38 mg/dL (9.8-20.1); Calc. Creatinine Clearance 54 mL/min (70-130); Calcium 8.7 mg/dL (7.8-10.44); Carbon Dioxide 20 mmol/L (22-29); Chloride 104 mmol/L (98-107); Estimated GFR-MDRD 35; Glucose 119 mg/dL (70-105); Potassium 3.7 mmol/L (3.5-5.1); Sodium 140 mmol/L (136-145)
[2018-09-04] MEDS ORDERED: Sodium Chloride 0.9% 250 ML IV SCH (08:30)
[2018-09-04] MEDS: Torsemide 20 MG TAB PO SCH (09:14)
[2018-09-04] MEDS: Gabapentin 400 MG CAP PO SCH ×3 (09:15→21:47)
[2018-09-04] MEDS: Clopidogrel Bisulfate 75 MG TAB PO SCH (09:15)
[2018-09-04] MEDS: FLUoxetine HCl 20 MG CAP PO SCH (09:15)
[2018-09-04] MEDS: Sacubitril 24.5 MG/Valsartan 25.5 MG TABLET PO SCH ×2 (09:16→21:46)
[2018-09-04] MEDS: Insulin Glargine 20 UNITS in Pre-Filled Syringe 1 EACH SC SCH ×2 (09:16→21:43)
--- NOTE | 2018-09-04 15:29 | PDOC.GSPN ---
Surgery Progress Note: Subj - Subjective Narrative: Patient is having some pain management issues but the nurses been unable to give her much in the way of pain medication because of hypotension. Her medications are being adjusted. Her VAC is in place and I will see her wound tomorrow with the wound care team. Surgery Progress Note: Obj - Vital signs Vital signs: Vital Signs - Most Recent Temp Pulse Resp BP Pulse Ox 97.6 F 67 16 129/58 L 92 L 09/04/18 12:05 09/04/18 12:05 09/04/18 12:05 09/04/18 12:05 09/04/18 12:05 Surgery Progress Note: Results - Labs Result Diagrams: 09/04/18 07:06 09/04/18 07:06 Lab results: Laboratory Results - last 24 hr 09/04/18 09/04/18 09/04/18 06:13 07:06 07:06 WBC 8.7 RBC 3.45 L Hgb 10.8 L Hct 32.9 L MCV 95.4 MCH 31.4 H MCHC 33.0 RDW 11.5 Plt Count 300 MPV 7.8 Neutrophils % 69.6 Lymphocytes % 21.5 Monocytes % 7.5 Eosinophils % 1.2 Basophils % 0.2 Neutrophils # 6.0 Lymphocytes # 1.9 Monocytes # 0.7 H Eosinophils # 0.1 Basophils # 0.0 Sodium 140 Potassium 3.7 Chloride 104 Carbon Dioxide 20 L Anion Gap 20 BUN 38 H Creatinine 1.54 H Estimated GFR (MDRD) 35 Glucose 119 H POC Glucose 174 H Calcium 8.7 09/04/18 12:05 WBC RBC Hgb Hct MCV MCH MCHC RDW Plt Count MPV Neutrophils % Lymphocytes % Monocytes % Eosinophils % Basophils % Neutrophils # Lymphocytes # Monocytes # Eosinophils # Basophils # Sodium Potassium Chloride Carbon Dioxide Anion Gap BUN Creatinine Estimated GFR (MDRD) Glucose POC Glucose 162 H Calcium
[2018-09-04] MEDS ORDERED: Vancomycin HCl 1 GM in Premix Bag 1 BAG IVPB SCH (15:30)
--- NOTE | 2018-09-04 15:33 | CON ---
DATE OF CONSULTATION: SUBJECTIVE: Ms. [place] is doing well. No current complaints. She underwent a right toe amputation yesterday. OBJECTIVE: VITAL SIGNS: Blood pressure 129/58, pulse 60, and temperature 97.6. LUNGS: Clear to auscultation. HEART: Regular rate and rhythm. ABDOMEN: Soft, nontender, and nondistended. EXTREMITIES: Nonpalpable popliteal pulses bilaterally. Right foot is bandaged. PERTINENT LABORATORY DATA: Hemoglobin 10.8. Creatinine 1.54 with a GFR of 35. IMPRESSION: 1. Severe peripheral vascular disease. 2. Coronary artery disease. 3. Status post bypass surgery. RECOMMENDATIONS: I discussed the case with Dr. Gill. She appeared to have good blood flow after amputation and granulation tissue. At this point, we will take a conservative approach. I did state that if her healing is stopped or regressed, we will consider revascularization percutaneously. Otherwise, from my standpoint, I have no further recommendations. Okay from my standpoint to discharge home when ready from a surgical standpoint. Job ID: [id number]
[2018-09-04] MEDS: Carvedilol 6.25 MG TAB PO SCH (16:22)
[2018-09-04] MEDS ORDERED: Vancomycin HCl 1.5 GM in Sodium Chloride 0.9% 250 ML 300 ML IVPB SCH (18:00)
[2018-09-04] MEDS: Enoxaparin Sodium 30 MG/0.3 ML SYRINGE SC SCH (21:45)
[2018-09-04] MEDS: traZODone HCl 50 MG TAB PO SCH (21:46)
[2018-09-04] MEDS: Vancomycin HCl 1.5 GM in Sodium Chloride 0.9% 250 ML 300 ML IVPB SCH (21:47)
[2018-09-04] MEDS: Atorvastatin Calcium 40 MG TAB PO SCH (21:47)
--- NOTE | 2018-09-04 22:56 | PDOC.PN ---
- Subjective Encounter Start Date: 09/04/18 Encounter Start Time: 15:00 Patient seen and examined for diabetic foot infection. No new complaints. No overnight events - Objective Resuscitation Status - Order Detail: 08/31/18 08:22 Resuscitation Status Routine Resuscitation Status: FULL: Full Resuscitation MAR Reviewed: Yes Vital Signs & Weight: Vital Signs (12 hours) Temp Pulse Resp BP BP BP BP 09/04/18 20:00 98.5 F 72 20 09/04/18 16:22 127/81 09/04/18 15:53 98.1 F 72 14 09/04/18 12:05 97.6 F 67 16 129/58 L 09/04/18 11:09 109/69 108/72 09/04/18 11:04 114/73 BP Pulse Ox 09/04/18 20:00 113/61 96 09/04/18 16:22 09/04/18 15:53 127/81 96 09/04/18 12:05 92 L 09/04/18 11:09 09/04/18 11:04 Weight Admit Weight 190 lb 14.4 oz Weight 178 lb 4.8 oz I&O: 09/03/18 09/04/18 09/05/18 06:59 06:59 06:59 Intake Total 270 1400 Output Total 500 Balance -230 1400 Result Diagrams: 09/04/18 07:06 09/05/18 05:41 Additional Labs: Accuchecks 09/04/18 09/04/18 09/04/18 20:23 15:50 12:05 POC Glucose 231 H 341 H 162 H 09/04/18 06:13 POC Glucose 174 H Phys Exam - Physical Examination Constitutional: NAD Respiratory: no wheezing, no rhonchi Cardiovascular: RRR, no rub Gastrointestinal: soft, non-tender, positive bowel sounds Musculoskeletal: no edema Neurological: moves all 4 limbs Dx/Plan (1) Diabetic foot ulcer Code(s): E11.621 - TYPE 2 DIABETES MELLITUS WITH FOOT ULCER; L97.509 - NON- PRESSURE CHRONIC ULCER OTH PRT UNSP FOOT W UNSP SEVERITY Status: Acute Qualifiers: Diabetes mellitus type: type 2 Laterality: right Non-pressure ulcer stage : unspecified non-pressure ulcer stage Comment: s/p toe amputation (2) Acute on chronic systolic (congestive) heart failure Code(s): I50.23 - ACUTE ON CHRONIC SYSTOLIC (CONGESTIVE) HEART FAILURE Status : Acute Comment: ACC stage C - improved (3) DM2 (diabetes mellitus, type 2) Status: Chronic Qualifiers: Chronic kidney disease stage: stage 3 (moderate) (4) Peripheral vascular disease Code(s): I73.9 - PERIPHERAL VASCULAR DISEASE, UNSPECIFIED Status: Chronic (5) HLD (hyperlipidemia) Code(s): E78.5 - HYPERLIPIDEMIA, UNSPECIFIED Status: Chronic Qualifiers: (6) HTN (hypertension) Code(s): I10 - ESSENTIAL (PRIMARY) HYPERTENSION Status: Chronic Qualifiers: (7) Other issues per previous notes - Plan cont current plan of care, continue antibiotics, DVT proph w/SCDs DC Doxycyline -: Start IV Vancomycin -: Consult ID -: Cont wound care Review of Systems - Review of Systems Respiratory: negative: Cough, Dry, Shortness of Breath, Hemoptysis, SOB with Excertion, Pleuritic Pain, Sputum, Wheezing Cardiovascular: negative: chest pain, palpitations, orthopnea, paroxysmal nocturnal dyspnea, edema, light headedness, other Gastrointestinal: negative: Nausea, Vomiting, Abdominal Pain, Diarrhea, Constipation, Melena, Hematochezia, Other - Medications/Allergies Allergies/Adverse Reactions: Allergies Allergy/AdvReac Type Severity Reaction Status Date / Time No Known Allergies Allergy Verified 11/29/16 23:41 Medications: Current Medications Acetaminophen (Tylenol) 650 mg PO Q4H PRN PRN Reason: Headache/Fever/Mild Pain (1-3) Last Admin: 09/03/18 08:21 Dose: 650 mg Acetaminophen/Codeine Phosphate (Tylenol #3) 1 tab PO Q4H PRN PRN Reason: Moderate Pain (4-6) Last Admin: 09/04/18 18:34 Dose: 1 tab Atorvastatin Calcium (Lipitor) 80 mg PO [facility] Last Admin: 09/04/18 21:47 Dose: 80 mg Carvedilol (Coreg) 6.25 mg PO BID[facility] Last Admin: 09/04/18 16:22 Dose: 6.25 mg Clopidogrel Bisulfate (Plavix) [address] [facility] Last Admin: 09/04/18 09:15 Dose: 75 mg Dextrose/Water (Dextrose 50%) 25 gm SLOW IVP PRN PRN PRN Reason: Hypoglycemia Enoxaparin Sodium (Lovenox) [address] [facility] Last Admin: 09/04/18 21:45 Dose: 30 mg Fluoxetine HCl (Prozac) [address] [facility] Last Admin: 09/04/18 09:15 Dose: 40 mg Gabapentin (Neurontin) [address] [facility] Last Admin: 09/04/18 21:47 Dose: 400 mg Glucagon (Glucagon) 1 mg IM PRN PRN PRN Reason: Hypoglycemia Dextrose/Water (D5w) 1,000 mls @ 0 mls/hr IV .Q0M PRN PRN Reason: Hypoglycemia Insulin Glargine 20 units/ (Miscellaneous Medication) 0.2 mls @ 0 mls/hr SC BID [facility] Last Admin: 09/04/18 21:43 Dose: 0.2 mls Cefepime HCl 2 gm/ Sodium (Chloride) 100 mls @ 100 mls/hr IVPB 0500,1700 [facility] Last Admin: 09/04/18 16:23 Dose: 100 mls Vancomycin HCl 1.5 gm/ Sodium (Chloride) 300 mls @ 200 mls/hr IVPB 2000 [facility] Last Admin: 09/04/18 21:47 Dose: 300 mls Insulin Human Lispro (Humalog) 0 units SC .MODERATE SLIDING SC PRN PRN Reason: Moderate Correctional Scale Last Admin: 09/04/18 21:44 Dose: 4 unit Metolazone (Zaroxolyn) 5 mg PO Love@0900 [facility] Last Admin: 09/02/18 10:48 Dose: 5 mg Miscellaneous Medication (Pharmacy To Dose) 1 each IVPB PRN PRN PRN Reason: Pharmacy to dose Ondansetron HCl (Zofran Odt) 4 mg PO Q6H PRN PRN Reason: Nausea/Vomiting Sacubitril/Valsartan (Entresto 24.5 Mg-25.5 Mg Tablet) [address] [facility] Last Admin: 09/04/18 21:46 Dose: 1 tab Sodium Chloride (Flush - Normal Saline) [address] [facility] Last Admin: 09/04/18 21:47 Dose: 10 ml Sodium Chloride (Flush - Normal Saline) 10 ml IVF PRN PRN PRN Reason: Saline Flush Last Admin: 09/04/18 16:23 Dose: 10 ml Torsemide (Demadex) 40 mg PO DAILY [facility] Last Admin: 09/04/18 09:14 Dose: Not Given Trazodone HCl (Desyrel) [address] [facility] Last Admin: 09/04/18 21:46 Dose: 100 mg Zolpidem Tartrate (Ambien) 5 mg PO HSPRN PRN PRN Reason: Insomnia
[2018-09-05] MEDS: Cefepime 2 GM in Sodium Chloride 0.9% 100 ML IVPB SCH ×2 (05:22→17:31)
[2018-09-05 06:43] LABS: Anion Gap 15 mmol/L (10-20); BUN (Urea Nitrogen) 39 mg/dL (9.8-20.1); Calc. Creatinine Clearance 58 mL/min (70-130); Calcium 8.6 mg/dL (7.8-10.44); Carbon Dioxide 26 mmol/L (22-29); Chloride 103 mmol/L (98-107); Estimated GFR-MDRD 38; Glucose 104 mg/dL (70-105); Magnesium 1.6 mg/dL (1.6-2.6); Potassium 3.7 mmol/L (3.5-5.1); Sodium 140 mmol/L (136-145)
[2018-09-05] MEDS: Insulin Glargine 20 UNITS in Pre-Filled Syringe 1 EACH SC SCH ×2 (09:24→20:59)
[2018-09-05] MEDS: Carvedilol 6.25 MG TAB PO SCH ×2 (09:24→17:29)
[2018-09-05] MEDS: Gabapentin 400 MG CAP PO SCH ×3 (09:24→20:58)
[2018-09-05] MEDS: Clopidogrel Bisulfate 75 MG TAB PO SCH (09:24)
[2018-09-05] MEDS: FLUoxetine HCl 20 MG CAP PO SCH (09:24)
[2018-09-05] MEDS: Acetaminophen/Codeine 30-300mg Tablet PO PRN ×3 (09:25→22:04)
[2018-09-05] MEDS: Sacubitril 24.5 MG/Valsartan 25.5 MG TABLET PO SCH ×2 (13:03→20:59)
[2018-09-05] MEDS: Torsemide 20 MG TAB PO SCH (13:08)
--- NOTE | 2018-09-05 15:37 | SPC ---
SONOGRAPHIC GUIDED LEFT UPPER EXTREMITY PICC PLACEMENT: History: Osteomyelitis. FINDINGS: After explaining the procedure and answering all questions, the left upper extremity was prepped and draped in the usual sterile fashion. Sterile technique, buffered local anesthesia, sonographic guidan ce and a 22 gauge needle were used to carefully access the left basilic vein. Standard technique was used to place the tip of a 5 [place] single lumen PICC so that the tip lies at the level of the cavoat rial junction. Catheter was flushed and secured externally. Patient tolerated the procedure well and was returned in unchanged condition. Fluoro time: 0 seconds. IMPRESSION: Left upper extremity PICC is ready for use. POS: [facility]
--- NOTE | 2018-09-05 17:23 | PDOC.GSPN ---
Surgery Progress Note: Subj - Subjective Narrative: The base of the wound is clean but the surrounding tissues are dusky in color. She also has patchy areas of dusky skin on her dorsal and plantar forefoot. This is very concerning for ischemia as is the degree of pain that she is having. I have spoken with Dr. Max who plans to hydrate her and hopes that her creatinine will be low enough tomorrow that he can attempt intervention on her inflow. She is at very high risk for losing her foot. Surgery Progress Note: Obj - Vital signs Vital signs: Vital Signs - Most Recent Temp Pulse Resp BP Pulse Ox 98 F 67 20 133/58 L 94 L 09/05/18 15:37 09/05/18 15:37 09/05/18 15:37 09/05/18 15:37 09/05/18 15:37 Surgery Progress Note: Results - Labs Result Diagrams: 09/04/18 07:06 09/05/18 05:41 Lab results: Laboratory Results - last 24 hr 09/05/18 09/05/18 09/05/18 05:41 05:56 11:09 Sodium 140 Potassium 3.7 Chloride 103 Carbon Dioxide 26 Anion Gap 15 BUN 39 H Creatinine 1.43 H Estimated GFR (MDRD) 38 Glucose 104 POC Glucose 112 H 124 H Calcium 8.6 Magnesium 1.6 09/05/18 15:43 Sodium Potassium Chloride Carbon Dioxide Anion Gap BUN Creatinine Estimated GFR (MDRD) Glucose POC Glucose 153 H Calcium Magnesium
[2018-09-05] MEDS ORDERED: Communication Order-Pharmacy FS SCH (19:45)
--- NOTE | 2018-09-05 20:25 | PDOC.PN ---
- Subjective Encounter Start Date: 09/05/18 Encounter Start Time: 11:00 Patient seen and examined for diabetic foot infection. No new complaints. No overnight events - Objective Resuscitation Status - Order Detail: 08/31/18 08:22 Resuscitation Status Routine Resuscitation Status: FULL: Full Resuscitation MAR Reviewed: Yes Vital Signs & Weight: Vital Signs (12 hours) Temp Pulse Resp BP BP Pulse Ox 09/05/18 15:37 98 F 67 20 133/58 L 94 L 09/05/18 11:10 97.9 F 72 20 124/80 93 L 09/05/18 09:24 127/81 Weight Admit Weight 190 lb 14.4 oz Weight 178 lb 4.8 oz I&O: 09/04/18 09/05/18 09/06/18 06:59 06:59 06:59 Intake Total 1400 720 Balance 1400 720 Result Diagrams: 09/04/18 07:06 09/05/18 05:41 Additional Labs: Accuchecks 09/05/18 09/05/18 09/05/18 15:43 11:09 05:56 POC Glucose 153 H 124 H 112 H 09/04/18 20:23 POC Glucose 231 H Phys Exam - Physical Examination Constitutional: NAD Respiratory: no wheezing, no rhonchi Cardiovascular: RRR, no rub Gastrointestinal: soft, non-tender, positive bowel sounds Musculoskeletal: no edema dressing + Dx/Plan (1) Diabetic foot ulcer Code(s): E11.621 - TYPE 2 DIABETES MELLITUS WITH FOOT ULCER; L97.509 - NON- PRESSURE CHRONIC ULCER OTH PRT UNSP FOOT W UNSP SEVERITY Status: Acute Qualifiers: Diabetes mellitus type: type 2 Laterality: right Non-pressure ulcer stage : unspecified non-pressure ulcer stage Comment: s/p toe amputation (2) Acute on chronic systolic (congestive) heart failure Code(s): I50.23 - ACUTE ON CHRONIC SYSTOLIC (CONGESTIVE) HEART FAILURE Status : Acute Comment: ACC stage C - improved (3) DM2 (diabetes mellitus, type 2) Status: Chronic Qualifiers: Chronic kidney disease stage: stage 3 (moderate) (4) Peripheral vascular disease Code(s): I73.9 - PERIPHERAL VASCULAR DISEASE, UNSPECIFIED Status: Chronic (5) HLD (hyperlipidemia) Code(s): E78.5 - HYPERLIPIDEMIA, UNSPECIFIED Status: Chronic Qualifiers: (6) HTN (hypertension) Code(s): I10 - ESSENTIAL (PRIMARY) HYPERTENSION Status: Chronic Qualifiers: (7) Other issues per previous notes - Plan cont current plan of care, continue antibiotics, PT/OT, DVT proph w/lovenox Cont wound care -: Case d/w Dr Mariano - PICC line -: IV Vancomycin/ PO Cipro and Flagyl until October 16 -: Surg/Dr Max following -: Cont current meds as below Review of Systems - Review of Systems Respiratory: negative: Cough, Dry, Shortness of Breath, Hemoptysis, SOB with Excertion, Pleuritic Pain, Sputum, Wheezing Cardiovascular: negative: chest pain, palpitations, orthopnea, paroxysmal nocturnal dyspnea, edema, light headedness, other - Medications/Allergies Allergies/Adverse Reactions: Allergies Allergy/AdvReac Type Severity Reaction Status Date / Time No Known Allergies Allergy Verified 11/29/16 23:41 Medications: Current Medications Acetaminophen (Tylenol) 650 mg PO Q4H PRN PRN Reason: Headache/Fever/Mild Pain (1-3) Last Admin: 09/03/18 08:21 Dose: 650 mg Acetaminophen/Codeine Phosphate (Tylenol #3) 1 tab PO Q4H PRN PRN Reason: Moderate Pain (4-6) Last Admin: 09/05/18 13:06 Dose: 1 tab Atorvastatin Calcium (Lipitor) 80 mg PO HS [facility] Last Admin: 09/04/18 21:47 Dose: 80 mg Carvedilol (Coreg) 6.25 mg PO BID-[facility] Last Admin: 09/05/18 17:29 Dose: 6.25 mg Clopidogrel Bisulfate (Plavix) 75 mg PO QAM [facility] Last Admin: 09/05/18 09:24 Dose: 75 mg Dextrose/Water (Dextrose 50%) 25 gm SLOW IVP PRN PRN PRN Reason: Hypoglycemia Enoxaparin Sodium (Lovenox) 30 mg SC 2100 [facility] Last Admin: 09/04/18 21:45 Dose: 30 mg Fluoxetine HCl (Prozac) 40 mg PO DAILY [facility] Last Admin: 09/05/18 09:24 Dose: 40 mg Gabapentin (Neurontin) 400 mg PO TID [facility] Last Admin: 09/05/18 16:31 Dose: 400 mg Glucagon (Glucagon) 1 mg IM PRN PRN PRN Reason: Hypoglycemia Dextrose/Water (D5w) 1,000 mls @ 0 mls/hr IV .Q0M PRN PRN Reason: Hypoglycemia Insulin Glargine 20 units/ (Miscellaneous Medication) 0.2 mls @ 0 mls/hr SC BID [facility] Last Admin: 09/05/18 09:24 Dose: 0.2 mls Cefepime HCl 2 gm/ Sodium (Chloride) 100 mls @ 100 mls/hr IVPB 0500,1700 [facility] Last Admin: 09/05/18 17:31 Dose: 100 mls Vancomycin HCl 1.5 gm/ Sodium (Chloride) 300 mls @ 200 mls/hr IVPB 2000 [facility] Last Admin: 09/04/18 21:47 Dose: 300 mls Sodium Chloride (Normal Saline 0.9%) 1,000 mls @ 100 mls/hr IV .Q10H [facility] Insulin Human Lispro (Humalog) 0 units SC .MODERATE SLIDING SC PRN PRN Reason: Moderate Correctional Scale Last Admin: 09/04/18 21:44 Dose: 4 unit Metolazone (Zaroxolyn) 5 mg PO Love@0900 [facility] Last Admin: 09/02/18 10:48 Dose: 5 mg Miscellaneous Information (Communication Order-Pharmacy) 0 each FS ONE [facility] Miscellaneous Medication (Pharmacy To Dose) 1 each IVPB PRN PRN PRN Reason: Pharmacy to dose Ondansetron HCl (Zofran Odt) 4 mg PO Q6H PRN PRN Reason: Nausea/Vomiting Sacubitril/Valsartan (Entresto 24.5 Mg-25.5 Mg Tablet) 1 tab PO BID [facility] Last Admin: 09/05/18 13:03 Dose: Not Given Sodium Chloride (Flush - Normal Saline) 10 ml IVF Q12HR [facility] Last Admin: 09/05/18 09:24 Dose: 10 ml Sodium Chloride (Flush - Normal Saline) 10 ml IVF PRN PRN PRN Reason: Saline Flush Last Admin: 09/04/18 16:23 Dose: 10 ml Torsemide (Demadex) 40 mg PO DAILY [facility] Last Admin: 09/05/18 13:08 Dose: 40 mg Trazodone HCl (Desyrel) 100 mg PO HS [facility] Last Admin: 09/04/18 21:46 Dose: 100 mg Zolpidem Tartrate (Ambien) 5 mg PO HSPRN PRN PRN Reason: Insomnia
[2018-09-05] MEDS: Sodium Chloride 0.9% 1,000 ML IV SCH (20:53)
[2018-09-05] MEDS: Vancomycin HCl 1.5 GM in Sodium Chloride 0.9% 250 ML 300 ML IVPB SCH (20:56)
[2018-09-05] MEDS: traZODone HCl 50 MG TAB PO SCH (20:58)
[2018-09-05] MEDS: Enoxaparin Sodium 30 MG/0.3 ML SYRINGE SC SCH (20:59)
[2018-09-05] MEDS: Atorvastatin Calcium 40 MG TAB PO SCH (20:59)
[2018-09-05] MEDS: HumaLOG 300 UNITS/3 ML VIAL SC PRN (22:03)
[2018-09-06] MEDS: Cefepime 2 GM in Sodium Chloride 0.9% 100 ML IVPB SCH ×2 (05:58→17:49)
[2018-09-06 07:01] LABS: #Eosinphils 0.1 thou/uL (0.0-0.7); #Lymphocytes 1.4 thou/uL (1.20-3.40); #Monocytes 0.6 thou/uL (0.11-0.59); #Neutrophils 6.3 thou/uL (1.40-6.50); %Basophils 0.2 % (0.0-1.0); %Eosinophils 1.1 % (0.0-10.0); %Lymphocytes 16.9 % (21.0-51.0); %Monocytes 7.5 % (0.0-10.0); %Neutrophils 74.3 % (42.0-75.0); Hemoglobin 10.8 g/dL (12.0-16.0); Mean Corpuscular HGB CONC 32.7 g/dL (32.0-36.0); Mean Corpuscular Hemoglobin 31.5 pg (27.0-31.0); Mean Corpuscular Volume 96.2 fL (78.0-98.0); Mean Platelet Volume 7.8 fL (7.4-10.4); Platelet Count 325 thou/uL (130-400); RBC Distribution Width 11.5 % (11.5-14.5); Red Blood Cell (RBC) Count 3.43 mill/uL (4.20-5.40); White Blood Cell (WBC) Count 8.5 thou/uL (4.8-10.8)
[2018-09-06 07:29] LABS: Anion Gap 17 mmol/L (10-20); BUN (Urea Nitrogen) 38 mg/dL (9.8-20.1); Calc. Creatinine Clearance 65 mL/min (70-130); Carbon Dioxide 25 mmol/L (22-29); Chloride 103 mmol/L (98-107); Estimated GFR-MDRD 44; Glucose 85 mg/dL (70-105); Potassium 3.9 mmol/L (3.5-5.1); Sodium 141 mmol/L (136-145)
[2018-09-06] MEDS ORDERED: Midazolam HCl 2 mg/2 ml Vial ONE ×2 (08:29→09:54)
[2018-09-06] MEDS ORDERED: Fentanyl 100 MCG/2 ML VIAL ONE ×2 (08:30→09:54)
[2018-09-06] MEDS: Clopidogrel Bisulfate 75 MG TAB PO SCH (08:43)
[2018-09-06] MEDS: Carvedilol 6.25 MG TAB PO SCH ×2 (08:43→17:49)
[2018-09-06] MEDS: Insulin Glargine 20 UNITS in Pre-Filled Syringe 1 EACH SC SCH ×2 (08:44→21:12)
[2018-09-06] MEDS: FLUoxetine HCl 20 MG CAP PO SCH (08:44)
[2018-09-06] MEDS: Sacubitril 24.5 MG/Valsartan 25.5 MG TABLET PO SCH ×2 (08:44→21:12)
[2018-09-06] MEDS: Gabapentin 400 MG CAP PO SCH ×3 (08:44→21:11)
[2018-09-06] MEDS: Torsemide 20 MG TAB PO SCH (08:44)
[2018-09-06] MEDS: Sodium Chloride 0.9% 1,000 ML IV SCH ×3 (08:45→21:21)
[2018-09-06] MEDS ORDERED: Iopamidol 370 76% 100 ML VIAL ONE (09:25)
[2018-09-06] MEDS ORDERED: Iopamidol 370 76% 50 ML VIAL FS ONE (09:25)
[2018-09-06] MEDS ORDERED: Heparin 10,000 UNITS/1 ML VIAL ONE ×2 (09:53→10:26)
[2018-09-06] MEDS ORDERED: Sodium Chloride 0.9% 1,000 ML IV SCH (10:45)
[2018-09-06 14:13] VITALS: BMI 31.6
--- NOTE | 2018-09-06 16:54 | PDOC.GSPN ---
Surgery Progress Note: Subj - Subjective Narrative: Patient went to the angiography suite today and her superficial femoral artery was able to be opened back up. I will check her wound with wound care team tomorrow. Surgery Progress Note: Obj - Vital signs Vital signs: Vital Signs - Most Recent Temp Pulse Resp BP Pulse Ox 98.3 F 73 20 126/73 93 L 09/06/18 07:38 09/06/18 07:38 09/06/18 07:38 09/06/18 07:38 09/06/18 07:38 Surgery Progress Note: Results - Labs Result Diagrams: 09/06/18 06:21 09/06/18 06:21 Lab results: Laboratory Results - last 24 hr 09/06/18 09/06/18 09/06/18 05:50 06:21 06:21 WBC 8.5 RBC 3.43 L Hgb 10.8 L Hct 33.0 L MCV 96.2 MCH 31.5 H MCHC 32.7 RDW 11.5 Plt Count 325 MPV 7.8 Neutrophils % 74.3 Lymphocytes % 16.9 L Monocytes % 7.5 Eosinophils % 1.1 Basophils % 0.2 Neutrophils # 6.3 Lymphocytes # 1.4 Monocytes # 0.6 H Eosinophils # 0.1 Basophils # 0.0 Activated Clotting Time Sodium 141 Potassium 3.9 Chloride 103 Carbon Dioxide 25 Anion Gap 17 BUN 38 H Creatinine 1.28 H Estimated GFR (MDRD) 44 Glucose 85 POC Glucose 93 Calcium 9.0 09/06/18 09/06/18 09/06/18 09:27 10:03 13:11 WBC RBC Hgb Hct MCV MCH MCHC RDW Plt Count MPV Neutrophils % Lymphocytes % Monocytes % Eosinophils % Basophils % Neutrophils # Lymphocytes # Monocytes # Eosinophils # Basophils # Activated Clotting Time 206 H 222 H 169 H Sodium Potassium Chloride Carbon Dioxide Anion Gap BUN Creatinine Estimated GFR (MDRD) Glucose POC Glucose Calcium
--- NOTE | 2018-09-06 17:10 | EKG ---
Test Reason : POST BALLOON Blood Pressure : / mmHG Vent. Rate : 065 BPM Atrial Rate : 065 BPM P-R Int : 150 ms QRS Dur : 102 ms QT Int : 466 ms P-R-T Axes : 023 047 080 degrees QTc Int : 484 ms Normal sinus rhythm Prolonged QT Abnormal ECG When compared with ECG of 31-AUG-2018 09:08, (Unconfirmed) No significant change was found Confirmed by HUNTER SOLIZ, DR. S. ([id number]) on 09/06/2018 5:09:42 PM Referred By: TAN Confirmed By:DR. Aydee HARRISON MD
[2018-09-06] MEDS: Acetaminophen/Codeine 30-300mg Tablet PO PRN ×2 (18:16→22:39)
--- NOTE | 2018-09-06 18:28 | PDOC.PN ---
- Subjective Encounter Start Date: 09/06/18 Encounter Start Time: 14:00 Patient seen and examined in PCU. No new complaints. No overnight events - Objective Resuscitation Status - Order Detail: 08/31/18 08:22 Resuscitation Status Routine Resuscitation Status: FULL: Full Resuscitation MAR Reviewed: Yes Vital Signs & Weight: Vital Signs (12 hours) Temp Pulse Resp BP BP Pulse Ox 09/06/18 18:01 98.7 F 75 18 154/60 H 92 L 09/06/18 07:38 98.3 F 73 20 126/73 93 L Weight Admit Weight 190 lb 14.4 oz Weight 178 lb 4.8 oz I&O: 09/05/18 09/06/18 09/07/18 06:59 06:59 06:59 Intake Total 1400 720 635 Output Total 300 Balance 1400 720 335 Result Diagrams: 09/06/18 06:21 09/06/18 06:21 Additional Labs: Accuchecks 09/06/18 09/05/18 05:50 21:20 POC Glucose 93 246 H Phys Exam - Physical Examination Constitutional: NAD Respiratory: no wheezing, no rhonchi Cardiovascular: RRR, no rub Gastrointestinal: soft, non-tender, positive bowel sounds Musculoskeletal: no edema Neurological: moves all 4 limbs Dx/Plan (1) Diabetic foot ulcer Code(s): E11.621 - TYPE 2 DIABETES MELLITUS WITH FOOT ULCER; L97.509 - NON- PRESSURE CHRONIC ULCER OTH PRT UNSP FOOT W UNSP SEVERITY Status: Acute Qualifiers: Diabetes mellitus type: type 2 Laterality: right Non-pressure ulcer stage : unspecified non-pressure ulcer stage Comment: s/p toe amputation (2) Acute on chronic systolic (congestive) heart failure Code(s): I50.23 - ACUTE ON CHRONIC SYSTOLIC (CONGESTIVE) HEART FAILURE Status : Acute Comment: ACC stage C - improved, on Entresto (3) DM2 (diabetes mellitus, type 2) Status: Chronic Qualifiers: Chronic kidney disease stage: stage 3 (moderate) (4) Peripheral vascular disease Code(s): I73.9 - PERIPHERAL VASCULAR DISEASE, UNSPECIFIED Status: Chronic (5) HLD (hyperlipidemia) Code(s): E78.5 - HYPERLIPIDEMIA, UNSPECIFIED Status: Chronic Qualifiers: (6) HTN (hypertension) Code(s): I10 - ESSENTIAL (PRIMARY) HYPERTENSION Status: Chronic Qualifiers: (7) Tobacco dependence Code(s): F17.200 - NICOTINE DEPENDENCE, UNSPECIFIED, UNCOMPLICATED Status: Chronic (8) Other issues per previous notes - Plan cont current plan of care, continue antibiotics IV Vancomycin/ PO Cipro and Flagyl until October 16 -: Monitor Vancomycin level -: s/p SFA angioplasty -: Cont current meds as below -: AM labs, IV hydration, Cont wound care, DC to SNF in AM if ok with Surg Review of Systems - Review of Systems Respiratory: negative: Cough, Dry, Shortness of Breath, Hemoptysis, SOB with Excertion, Pleuritic Pain, Sputum, Wheezing Cardiovascular: negative: chest pain, palpitations, orthopnea, paroxysmal nocturnal dyspnea, edema, light headedness, other - Medications/Allergies Allergies/Adverse Reactions: Allergies Allergy/AdvReac Type Severity Reaction Status Date / Time No Known Allergies Allergy Verified 11/29/16 23:41 Medications: Current Medications Acetaminophen (Tylenol) 650 mg PO Q4H PRN PRN Reason: Headache/Fever/Mild Pain (1-3) Last Admin: 09/03/18 08:21 Dose: 650 mg Acetaminophen/Codeine Phosphate (Tylenol #3) 1 tab PO Q4H PRN PRN Reason: Moderate Pain (4-6) Last Admin: 09/06/18 18:16 Dose: 1 tab Atorvastatin Calcium (Lipitor) 80 mg PO HS [facility] Last Admin: 09/05/18 20:59 Dose: 80 mg Carvedilol (Coreg) 6.25 mg PO BID-[facility] Last Admin: 09/06/18 17:49 Dose: 6.25 mg Clopidogrel Bisulfate (Plavix) 75 mg PO QAM [facility] Last Admin: 09/06/18 08:43 Dose: Not Given Dextrose/Water (Dextrose 50%) 25 gm SLOW IVP PRN PRN PRN Reason: Hypoglycemia Fluoxetine HCl (Prozac) 40 mg PO DAILY [facility] Last Admin: 09/06/18 08:44 Dose: Not Given Gabapentin (Neurontin) 400 mg PO TID [facility] Last Admin: 09/06/18 16:32 Dose: Not Given Glucagon (Glucagon) 1 mg IM PRN PRN PRN Reason: Hypoglycemia Dextrose/Water (D5w) 1,000 mls @ 0 mls/hr IV .Q0M PRN PRN Reason: Hypoglycemia Insulin Glargine 20 units/ (Miscellaneous Medication) 0.2 mls @ 0 mls/hr SC BID [facility] Last Admin: 09/06/18 08:44 Dose: Not Given Cefepime HCl 2 gm/ Sodium (Chloride) 100 mls @ 100 mls/hr IVPB 0500,1700 [facility] Last Admin: 09/06/18 17:49 Dose: 100 mls Vancomycin HCl 1.5 gm/ Sodium (Chloride) 300 mls @ 200 mls/hr IVPB 2000 [facility] Last Admin: 09/05/18 20:56 Dose: 300 mls Sodium Chloride (Normal Saline 0.9%) 1,000 mls @ 100 mls/hr IV .Q10H [facility] Last Admin: 09/06/18 08:45 Dose: Not Given Sodium Chloride (Normal Saline 0.9%) 1,000 mls @ 100 mls/hr IV .Q10H [facility] Stop: 09/06/18 18:46 Last Admin: 09/06/18 16:32 Dose: Not Given Insulin Human Lispro (Humalog) 0 units SC .MODERATE SLIDING SC PRN PRN Reason: Moderate Correctional Scale Last Admin: 09/05/18 22:03 Dose: 4 unit Metolazone (Zaroxolyn) 5 mg PO Love@0900 [facility] Last Admin: 09/02/18 10:48 Dose: 5 mg Miscellaneous Medication (Pharmacy To Dose) 1 each IVPB PRN PRN PRN Reason: Pharmacy to dose Ondansetron HCl (Zofran Odt) 4 mg PO Q6H PRN PRN Reason: Nausea/Vomiting Sacubitril/Valsartan (Entresto 24.5 Mg-25.5 Mg Tablet) 1 tab PO BID [facility] Last Admin: 09/06/18 08:44 Dose: Not Given Sodium Chloride (Flush - Normal Saline) 10 ml IVF Q12HR [facility] Last Admin: 09/06/18 08:44 Dose: Not Given Sodium Chloride (Flush - Normal Saline) 10 ml IVF PRN PRN PRN Reason: Saline Flush Last Admin: 09/04/18 16:23 Dose: 10 ml Torsemide (Demadex) 40 mg PO DAILY [facility] Last Admin: 09/06/18 08:44 Dose: Not Given Trazodone HCl (Desyrel) 100 mg PO HS [facility] Last Admin: 09/05/18 20:58 Dose: 100 mg Zolpidem Tartrate (Ambien) 5 mg PO HSPRN PRN PRN Reason: Insomnia
[2018-09-06 19:37] LABS: Vancomycin, Trough 23.9 ug/mL
[2018-09-06] MEDS: Vancomycin HCl 1.5 GM in Sodium Chloride 0.9% 250 ML 300 ML IVPB SCH (21:10)
[2018-09-06] MEDS: Atorvastatin Calcium 40 MG TAB PO SCH (21:11)
[2018-09-06] MEDS: traZODone HCl 50 MG TAB PO SCH (21:11)
[2018-09-07] MEDS: Cefepime 2 GM in Sodium Chloride 0.9% 100 ML IVPB SCH (05:22)
[2018-09-07 07:05] LABS: #Lymphocytes 1.2 thou/uL (1.20-3.40); #Monocytes 0.7 thou/uL (0.11-0.59); #Neutrophils 5.6 thou/uL (1.40-6.50); %Basophils 0.2 % (0.0-1.0); %Eosinophils 0.6 % (0.0-10.0); %Lymphocytes 16.1 % (21.0-51.0); %Neutrophils 74.1 % (42.0-75.0); Hemoglobin 10.1 g/dL (12.0-16.0); Mean Corpuscular HGB CONC 31.9 g/dL (32.0-36.0); Mean Corpuscular Hemoglobin 30.3 pg (27.0-31.0); Mean Corpuscular Volume 95.1 fL (78.0-98.0); Mean Platelet Volume 7.8 fL (7.4-10.4); Platelet Count 310 thou/uL (130-400); RBC Distribution Width 11.4 % (11.5-14.5); Red Blood Cell (RBC) Count 3.32 mill/uL (4.20-5.40); White Blood Cell (WBC) Count 7.6 thou/uL (4.8-10.8)
[2018-09-07 07:24] LABS: ALT (SGPT) 13 U/L (8-55); AST (SGOT) 15 U/L (5-34); Albumin 3.2 g/dL (3.5-5.0); Alkaline Phosphatase 109 U/L (40-150); Anion Gap 10 mmol/L (10-20); BUN (Urea Nitrogen) 32 mg/dL (9.8-20.1); Bilirubin, Total 0.3 mg/dL (0.2-1.2); Calc. Creatinine Clearance 69 mL/min (70-130); Calcium 9.2 mg/dL (7.8-10.44); Carbon Dioxide 27 mmol/L (22-29); Chloride 106 mmol/L (98-107); Estimated GFR-MDRD 47; Glucose 132 mg/dL (70-105); Potassium 3.9 mmol/L (3.5-5.1); Protein, Total 6.2 g/dL (6.0-8.3); Sodium 139 mmol/L (136-145)
--- NOTE | 2018-09-07 07:25 | OP ---
DATE OF PROCEDURE: 09/06/2018 PREPROCEDURE DIAGNOSIS: Nonhealing ulcer. POSTPROCEDURE DIAGNOSIS: Severe peripheral vascular disease. PROCEDURE PERFORMED: 1. Aortogram. 2. Bilateral aortofemoral runoff. 3. Successful SENIOR NURSE MANAGER only of the right SFA. COMPLICATIONS: None. ESTIMATED BLOOD LOSS: 20 mL. DETAILS OF PROCEDURE: The patient was draped and prepped in sterile fashion. Access was difficult in the right groin area, performed under ultrasound guidance with a micropuncture needle. The patient had a stent present at the near ostium of the left SFA. Access was successfully obtained just above the previously stented area. Contra catheter was used, but would not cross into the contralateral segment. A rim catheter was then used. FINDINGS: There is a 40% stenosis with no significant gradient present in the distal aorta. Left lower extremity-common iliac, external iliac, and common femoral artery have no significant disease. The right SFA has 100% occlusion in the near ostial region. This is a long segment present. Reconstitution of the adductor canal. There is significant stenosis present of the popliteal artery. The mid distal popliteal artery is patent with 2 vessel runoff to the foot. Left lower extremity-the common iliac, external iliac artery, and common femoral artery have no significant disease. The right SFA has severe multiple lesions present at 60% to 90% present, but no occlusion. INTERVENTIONAL PROCEDURE: A 5-Mongolian sheath was exchanged for a 6-Mongolian sheath. Heparin was used for anticoagulation. A Glidewire and glide catheter were used. The Glidewire did cross the 100% occlusion in the proximal region successfully. This was confirmed through the guide catheter. A 4 x 150 mm [place] balloon catheter was then used. Multiple inflations were performed to 10 atmospheres. This was then removed and replaced with a 5 x 150 mm [place] balloon catheter. Again , multiple inflations were performed throughout the vessel. Distally, it was only inflated to 4 atmospheres. This was removed and replaced with a 5 x 150 mm Lutonix balloon catheter. This was placed within the previously stented region and inflated to 10 atmospheres. There was significant flow present noted after the study. I do not want to proceed with further stent implantation. She was transferred to [facility] in stable condition. Job ID: [id number] [facility]
[2018-09-07] MEDS ORDERED: Metolazone 5 MG TAB PO SCH (09:00)
[2018-09-07] MEDS: Acetaminophen/Codeine 30-300mg Tablet PO PRN (09:29)
[2018-09-07] MEDS: Sacubitril 24.5 MG/Valsartan 25.5 MG TABLET PO SCH (09:30)
[2018-09-07] MEDS: Gabapentin 400 MG CAP PO SCH (09:31)
[2018-09-07] MEDS: FLUoxetine HCl 20 MG CAP PO SCH (09:31)
[2018-09-07] MEDS: Clopidogrel Bisulfate 75 MG TAB PO SCH (09:32)
[2018-09-07] MEDS: Torsemide 20 MG TAB PO SCH (09:33)
[2018-09-07] MEDS: Insulin Glargine 20 UNITS in Pre-Filled Syringe 1 EACH SC SCH (09:36)
[2018-09-07] MEDS: Carvedilol 6.25 MG TAB PO SCH (09:36)
[2018-09-07] MEDS ORDERED: Morphine 4 MG/ML VIAL ONE (10:18)
[2018-09-07] MEDS ORDERED: Morphine 4 MG/ML VIAL SLOW IVP PRN (10:24)
--- NOTE | 2018-09-07 11:33 | PDOC.GSPN ---
Surgery Progress Note: Subj - Subjective Narrative: Patient seen with wound care team today. Her foot is basically stable compared to 2 days ago. The dusky area around the wound has not extended. I removed the skin sutures in this area to avoid putting any additional tension on the skin. Some of the epidermis on the dorsal foot is starting to slough and the underlying dermis appears potentially viable. The plantar skin is not really stage will. She has a small blister on the plantar surface which I left intact. I think she will have some additional skin loss at the wound but this will need to demarcate. The dusky area extends 1-2 cm around the margin of the wound at this point. She has some hyperemia of the lateral forefoot which I think is reactive due to revascularization. The tissues in the wound itself appear potentially viable so no debridement was performed today. I will want to see her back in a week or so to examine the wound and see if any further debridement as necessary. The viability of the foot is still in question. Surgery Progress Note: Obj - Vital signs Vital signs: Vital Signs - Most Recent Temp Pulse Resp BP Pulse Ox 97.9 F 74 20 150/72 H 93 L 09/07/18 08:00 09/07/18 08:00 09/07/18 08:00 09/07/18 09:36 09/07/18 08:00 Surgery Progress Note: Results - Labs Result Diagrams: 09/07/18 06:23 09/07/18 06:23 Lab results: Laboratory Results - last 24 hr 09/07/18 09/07/18 09/07/18 05:40 06:23 06:23 WBC 7.6 RBC 3.32 L Hgb 10.1 L Hct 31.5 L MCV 95.1 MCH 30.3 MCHC 31.9 L RDW 11.4 L Plt Count 310 MPV 7.8 Neutrophils % 74.1 Lymphocytes % 16.1 L Monocytes % 9.0 Eosinophils % 0.6 Basophils % 0.2 Neutrophils # 5.6 Lymphocytes # 1.2 Monocytes # 0.7 H Eosinophils # 0.0 Basophils # 0.0 Sodium 139 Potassium 3.9 Chloride 106 Carbon Dioxide 27 Anion Gap 10 BUN 32 H Creatinine 1.21 H Estimated GFR (MDRD) 47 Glucose 132 H POC Glucose 156 H Calcium 9.2 Total Bilirubin 0.3 AST 15 ALT 13 Alkaline Phosphatase 109 Serum Total Protein 6.2 Albumin 3.2 L Globulin 3.0 Albumin/Globulin Ratio 1.1 L 09/07/18 11:13 WBC RBC Hgb Hct MCV MCH MCHC RDW Plt Count MPV Neutrophils % Lymphocytes % Monocytes % Eosinophils % Basophils % Neutrophils # Lymphocytes # Monocytes # Eosinophils # Basophils # Sodium Potassium Chloride Carbon Dioxide Anion Gap BUN Creatinine Estimated GFR (MDRD) Glucose POC Glucose 146 H Calcium Total Bilirubin AST ALT Alkaline Phosphatase Serum Total Protein Albumin Globulin Albumin/Globulin Ratio
[2018-09-07 11:45] VITALS: BP 133/58; TEMP 98.3
[2018-09-07] MEDS ORDERED: Vancomycin HCl 1.25 GM in Sodium Chloride 0.9% 250 ML 250 ML IVPB SCH (20:00)
--- NOTE | 2018-09-08 08:25 | DIS ---
DATE OF ADMISSION: 08/31/2018 DATE OF DISCHARGE: 09/07/2018 DISCHARGE DISPOSITION: long-term facility at [facility]. ALLERGIES: NO KNOWN DRUG ALLERGIES. CONDITION ON DISCHARGE: The patient was seen and examined on the day of discharge. Denies any new complaints. No chest pain, shortness of breath, palpitations, fever, or chills reported. FOLLOWUP: The patient will follow up with Dr. Lutz at the facility. DISCHARGE MEDICATIONS: 1. Vancomycin 1.25 g daily until October 16. 2. Ciprofloxacin 500 mg twice a day until October 16. 3. Flagyl 500 mg 3 times daily until October 16. 4. Metolazone 5 mg once a week. 5. Lipitor 80 mg daily. 6. Prozac 40 mg daily. 7. Gabapentin 400 mg 3 times daily. 8. Entresto b.i.d. 9. Torsemide 40 mg daily. 10. Plavix 75 mg daily. 11. Lantus 15 units subcutaneously b.i.d. INPATIENT CONSULTANTS: 1. General Surgery, Dr. Gill. 2. Vascular, Dr. Max and Dr. Calloway. BRIEF HOSPITAL COURSE: The patient is a 52-year-old female with diabetes mellitus, type 2; chronic kidney disease; peripheral vascular disease; and COPD, presented to the hospital with evaluation of the drainage of the right foot wound. She was transferred to this facility from [facility]. She underwent MRI that showed chronic-appearing dislocation of the metatarsophalangeal joint of the little toe with dorsal displacement of the toe. The patient was evaluated by multiple physicians including General Surgery, Vascular, and Cardiology for possible angiogram. She was placed on broad-spectrum antibiotics and received wound care. She underwent right fifth toe amputation. Wound VAC was placed. She also underwent angioplasty of right SFA. Dr. Mariano was consulted, who recommended above antibiotics. Please note that during this hospital stay, the patient also had an episode of shortness of breath secondary to volume overload, that improved with diuretics. She has been cleared by consultants for discharge. FINAL DIAGNOSES: 1. Diabetic foot infection/neurotrophic wound of the right fifth metatarsal head, status post right fifth toe amputation. 2. Severe peripheral vascular disease, status post angioplasty of the right superficial femoral artery. 3. [id number] systolic heart failure exacerbation due to volume overload, improved with IV diuretics. 4. Diabetes mellitus, type 2 with chronic kidney disease, stage 3. 5. Severe peripheral vascular disease. 6. Hypertension. 7. Hyperlipidemia. 8. Ongoing tobacco abuse. The patient was extensively counseled. 9. History of femoral-popliteal bypass. 10. Chronic obstructive pulmonary disease. 11. Chronic anemia, normochromic, normocytic. 12. Acute kidney injury on chronic kidney disease, stage 3. 13. Hyponatremia. 14. Dehydration on admission. SIGNIFICANT LABORATORY DATA: Creatinine on the day of discharge is 1.21, on admission was 2.24. CRP 8.11. Blood cultures were negative. Wound cultures showed MRSA sensitive to vancomycin and Pseudomonas aeruginosa partially sensitive to ciprofloxacin. TIME SPENT: Total time coordinating the discharge of this patient was 37 minutes. Job ID: [id number]
== END 2018-09-07 11:45 | disposition swing bed (61) | DRG 503 ==
LOC: ERS 23:27 → 3SE 08-31 01:19 → 2NO 09-01 13:58 → SURG A 09-03 13:20
PROVIDERS: ADMIT Internal Medicine; ATTEND Internal Medicine
PROC: 0Y6X0Z0 Detachment at Right 5th Toe, Complete, Open Approach (ICD-10-PCS; principal; 2018-09-03)
PROC: 047K3Z1 Dilation of Right Femoral Artery using Drug-Coated Balloon, Percutaneous Approach (ICD-10-PCS; 2018-09-06)
DX: M86.9 Osteomyelitis, unspecified (principal); I50.23 Acute on chronic systolic (congestive) heart failure; I13.0 Hypertensive heart and chronic kidney disease with heart failure and stage 1 through stage 4 chronic kidney disease, or unspecified chronic kidney disease; N17.9 Acute kidney failure, unspecified; I42.9 Cardiomyopathy, unspecified; E87.1 Hypo-osmolality and hyponatremia; N18.3 Chronic kidney disease, stage 3 (moderate); E11.22 Type 2 diabetes mellitus with diabetic chronic kidney disease; J44.9 Chronic obstructive pulmonary disease, unspecified; Z95.1 Presence of aortocoronary bypass graft; I73.9 Peripheral vascular disease, unspecified; I25.10 Atherosclerotic heart disease of native coronary artery without angina pectoris; Z95.820 Peripheral vascular angioplasty status with implants and grafts; E11.621 Type 2 diabetes mellitus with foot ulcer; E87.5 Hyperkalemia; F17.210 Nicotine dependence, cigarettes, uncomplicated; D64.9 Anemia, unspecified; E86.0 Dehydration; Z22.322 Carrier or suspected carrier of Methicillin resistant Staphylococcus aureus; Z79.899 Other long term (current) drug therapy; Z79.02 Long term (current) use of antithrombotics/antiplatelets; E66.9 Obesity, unspecified; Z68.31 Body mass index [BMI] 31.0-31.9, adult
CPT/HCPCS: 36415; 36416; 36569; 37224; 76942; 80048; 80053; 80202; 83036; 83735; 85025; 85347; 85652; 86140; 87070; 87077; 87186; 87205; 88305; 93005; 93010; 96365; 96375; 99152; 99153; C1725; C1751; C1769; C1887; C2623; J0692; J0696; J1200; J1644; J1650; J1815; J1825; J1940; J2001; J2185; J2250; J2270; J2405; J2704; J3010; J3370; J7050; Q9967; S0028

== ENCOUNTER 2018-09-10 18:11 | Inpatient (IN) | payer MEDICARE ==
[2018-09-10 21:33] LABS: #Eosinphils 0.1 thou/uL (0.0-0.7); #Lymphocytes 2.2 thou/uL (1.20-3.40); #Monocytes 1.1 thou/uL (0.11-0.59); #Neutrophils 6.8 thou/uL (1.40-6.50); %Basophils 0.2 % (0.0-1.0); %Eosinophils 1.1 % (0.0-10.0); %Lymphocytes 21.8 % (21.0-51.0); %Monocytes 10.9 % (0.0-10.0); Mean Corpuscular HGB CONC 32.7 g/dL (32.0-36.0); Mean Corpuscular Hemoglobin 31.4 pg (27.0-31.0); Mean Corpuscular Volume 96.2 fL (78.0-98.0); Mean Platelet Volume 7.9 fL (7.4-10.4); Platelet Count 279 thou/uL (130-400); RBC Distribution Width 11.8 % (11.5-14.5); Red Blood Cell (RBC) Count 3.19 mill/uL (4.20-5.40); White Blood Cell (WBC) Count 10.3 thou/uL (4.8-10.8)
--- NOTE | 2018-09-10 21:33 | RAD ---
RIGHT FOOT THREE VIEWS: 09/10/2018 HISTORY: Right foot pain. COMPARISON: 08/30/2018 TECHNIQUE: AP, lateral, and oblique views of the right foot are obtained. FINDINGS: Three views of the right foot demonstrate amputation of the distal aspect of the 5th right digit and distal metatarsal. There is a surgical defect seen at the lateral inferior aspect of the distal righ t foot, in the soft tissues, in the expected location of the distal portion of the 5th right metatars al head. No other acute abnormality seen. IMPRESSION: Post surgical changes distal to the right 5th metatarsal. POS: [facility]
[2018-09-10 21:55] LABS: ALT (SGPT) 13 U/L (8-55); AST (SGOT) 15 U/L (5-34); Albumin 3.2 g/dL (3.5-5.0); Alkaline Phosphatase 119 U/L (40-150); Anion Gap 16 mmol/L (10-20); BUN (Urea Nitrogen) 50 mg/dL (9.8-20.1); Bilirubin, Total 0.2 mg/dL (0.2-1.2); Calc. Creatinine Clearance 0 mL/min (70-130); Calcium 8.5 mg/dL (7.8-10.44); Carbon Dioxide 23 mmol/L (22-29); Chloride 100 mmol/L (98-107); Estimated GFR-MDRD 32; Globulin 2.8 g/dL (2.4-3.5); Glucose 172 mg/dL (70-105); Potassium 4.2 mmol/L (3.5-5.1); Sodium 135 mmol/L (136-145)
[2018-09-10] MEDS ORDERED: Ciprofloxacin 500 MG TAB ONE (21:59)
[2018-09-10] MEDS ORDERED: Morphine 4 MG/ML VIAL ONE (21:59)
[2018-09-10 23:33] VITALS: BMI 32.6
[2018-09-11] MEDS ORDERED: Ondansetron ODT 4 MG TAB PO PRN (00:24)
[2018-09-11] MEDS ORDERED: Ondansetron PF 4 MG/2 ML Vial IVP PRN (00:24)
[2018-09-11] MEDS ORDERED: Senokot S 8.6-50 MG TAB PO PRN (00:24)
[2018-09-11] MEDS ORDERED: HumaLOG 300 UNITS/3 ML VIAL SC PRN (00:27)
[2018-09-11] MEDS ORDERED: Dextrose 5% in Water 1,000 ML IV PRN (00:27)
[2018-09-11] MEDS ORDERED: Dextrose 50% Abboject 50 ML SYRINGE SLOW IVP PRN (00:27)
[2018-09-11] MEDS ORDERED: Sodium Chloride 0.45% 500 ML IV SCH (00:30)
[2018-09-11] MEDS ORDERED: Sodium Chloride 0.45% 1,000 ML IV SCH (00:30)
[2018-09-11] MEDS: Sodium Chloride 0.45% 1,000 ML IV SCH ×4 (00:36→18:00)
[2018-09-11] MEDS: HYDROcodone/Acetaminophen 5/325 mg Tablet PO PRN ×4 (01:04→20:08)
--- NOTE | 2018-09-11 03:02 | HP ---
CHIEF COMPLAINT: Osteomyelitis. HISTORY OF PRESENT ILLNESS AND REVIEW OF SYSTEMS: Ms. Colorado is a pleasant 52-year-old woman who is transferred from [facility] for evaluation of osteomyelitis involving the right foot. She has had a wound VAC in place and states she has been seen by wound care who felt her wound appeared more necrotic compared to previously. The patient states she has not seen her foot and therefore is unable to assess how it has changed in recent days. She has been receiving vancomycin, Cipro, and metronidazole at [facility]. Her case was discussed with Dr. Gill and photographs were sent prompting her to request transfer for further evaluation and management. Upon arriving to the ED she had a foot x-ray showing postsurgical changes distal to the right fifth metatarsal. She was just discharged on September 07, 2018, after undergoing a right fifth toe amputation. She had been discharged on wound VAC, which has been in place until today. Additionally, the patient underwent angioplasty of the right SFA. Wound cultures done during her previous admission showed MRSA sensitive to vancomycin and Pseudomonas aeruginosa, partially sensitive to ciprofloxacin. At present, the patient complains of having significant pain in her right foot, which she rates an 8/10 in severity. She states she has been taking hydrocodone for this, which seems to manage her pain fairly well. However, she only takes it as needed rather than scheduled and states she does tend to have a constant lower level of pain. Her severe pain at present is attributed to the frequent examination she has had of her right foot. She was given 4 mg of morphine in the ED and states this did help to ease her pain. However, it is now starting to recur. She denies having any fevers, chills, or sweats. Denies having any nausea or vomiting. No abdominal pain or cramping. She does report discomfort in the left groin associated with procedure done during her last admission. She denies having any urinary symptoms. Denies having any bowel changes. No chest pain, palpitations , or shortness of breath. All other review of systems is negative. ALLERGIES: NKDA CURRENT MEDICATIONS: 1. Clopidogrel 75 mg PO daily. 2. Hydrocodone/ APAP 5/325 mg PO Q4H PRN. 3. Gabapentin 400 mg PO TID. 4. Fluoxetine 40 mg PO daily. 5. Cipro 500 mg PO BID. 6. Lantus 15 units SC BID. 7. Metronidazole 500 mg PO Q8HR. 8. Torsemide 40 mg daily. 9. Sacubitril/Valsartan 24/26mg PO BID. 10. Metolazone 5 mg PO every 7 days. 11. Trazodone 100 mg PO HS PRN. 12. Dulcolax 10 mg PO daily PRN. 13. Atorvastatin 80 mg PO daily. 14. Acetaminophen 650 mg PO Q4H PRN. PAST MEDICAL HISTORY: 1. Diabetic foot infection, status post right fifth toe amputation. 2. Severe peripheral vascular disease. 3. Status post angioplasty of right superficial femoral artery. 4. CHF. 5. Type 2 diabetes mellitus. 6. CKD, stage 3. 7. Hypertension. 8. Hyperlipidemia. 9. Tobacco use. 10. History of femoral-popliteal bypass. 11. COPD. 12. Chronic anemia. SURGICAL HISTORY: In addition to surgery mentioned above; 1. Tonsillectomy. 2. Heart catheterization with no stents placed in November 2016. 3. CABG in 2017. 4. Leg stent reopen in August 2018. 5. Right fifth toe amputation. SOCIAL HISTORY: The patient drinks socially and denies any illicit drug use. She smokes one pack per day. PHYSICAL EXAMINATION: GENERAL: The patient appears well developed, well nourished, in no acute distress. VITAL SIGNS: Temperature 98.8, pulse 67, blood pressure 117/62, respirations 16 , and O2 saturation 94% on room air. HEENT: Normocephalic and atraumatic. Pupils are equal, round, and reactive to light. Sclerae without icterus. Oropharynx is clear. NECK: Supple. No lymphadenopathy. LUNGS: Clear to auscultation bilaterally, without wheezes, rales, or rhonchi. CARDIAC: Regular rate and rhythm without audible murmurs, rubs, or gallops. ABDOMEN: Soft, nontender, nondistended with bowel sounds present. EXTREMITIES: Left groin with some dressing in place from recent angioplasty. No evidence of hematoma, redness, or swelling to the groin, mildly tender to palpation. Right foot notable for necrotic-appearing wound without any surrounding erythema or edema. No tracking signs of cellulitis involving her lower legs. No discharge. Clean dressing in place. NEUROLOGIC: Alert and oriented x3. Sensation to right foot intact though she does seem to be hypersensitive to the wound. LABORATORY DATA: White blood count 10.3, hemoglobin 10, hematocrit 30.7, and platelets 279. Sodium 135, potassium 4.2, BUN 50, creatinine 1.69, glucose 172, EGFR 32. LFTs unremarkable. IMAGING DATA: Foot x-ray, 09/10/2018. Postsurgical changes distal to the right fifth metatarsal. No other acute abnormality seen. IMPRESSION AND PLAN: Ms. Colorado will be admitted to the hospital for management of the following conditions. 1. Osteomyelitis. We will continue vancomycin. Meropenem prescribed. Repeat cultures taken. Consult General Surgery (patient known to Dr. Gill). 2. Pain. Blood pressure low at 95/50. Potentially due to morphine given in the ED versus being hypovolemic as laboratory studies indicate she does have an acute kidney injury. Bolus of 500 mL given over 2 hours. For now, patient is requesting hydrocodone only for her pain. Consider morphine if blood pressure improved following fluids. 3. Hypotension. Slow IV hydration following bolus, monitor BP. Repeat following bolus. 4. RHONDA. Slow IV hydration. Monitor renal function. 5. Diabetes. Continue insulin sliding scale and resume home medications. 6. Gastrointestinal prophylaxis. 7. Venous thromboembolism prophylaxis. Hold given open wound and risk of bleeding. Patient discussed and seen by Dr. Langston, who agrees with the plan of care as described above. Case discussed with my PA, agreed with Assessment and plan Job ID: [id number] MTDD
[2018-09-11] MEDS: Vancomycin HCl 1.5 GM in Sodium Chloride 0.9% 250 ML 300 ML IVPB SCH (04:16)
[2018-09-11 04:35] LABS: #Eosinphils 0.1 thou/uL (0.0-0.7); #Neutrophils 5.7 thou/uL (1.40-6.50); %Basophils 0.4 % (0.0-1.0); %Eosinophils 1.2 % (0.0-10.0); %Lymphocytes 23.1 % (21.0-51.0); %Monocytes 11.2 % (0.0-10.0); %Neutrophils 64.1 % (42.0-75.0); Hemoglobin 8.9 g/dL (12.0-16.0); Mean Corpuscular HGB CONC 32.2 g/dL (32.0-36.0); Mean Corpuscular Volume 96.5 fL (78.0-98.0); Mean Platelet Volume 7.7 fL (7.4-10.4); Platelet Count 271 thou/uL (130-400); RBC Distribution Width 11.8 % (11.5-14.5); Red Blood Cell (RBC) Count 2.86 mill/uL (4.20-5.40); White Blood Cell (WBC) Count 8.8 thou/uL (4.8-10.8)
[2018-09-11 04:55] LABS: ALT (SGPT) 14 U/L (8-55); AST (SGOT) 12 U/L (5-34); Albumin 2.9 g/dL (3.5-5.0); Alkaline Phosphatase 93 U/L (40-150); Anion Gap 13 mmol/L (10-20); BUN (Urea Nitrogen) 51 mg/dL (9.8-20.1); Bilirubin, Total 0.2 mg/dL (0.2-1.2); Calc. Creatinine Clearance 58 mL/min (70-130); Calcium 8.4 mg/dL (7.8-10.44); Carbon Dioxide 26 mmol/L (22-29); Chloride 101 mmol/L (98-107); Estimated GFR-MDRD 35; Glucose 121 mg/dL (70-105); Potassium 3.6 mmol/L (3.5-5.1); Protein, Total 5.9 g/dL (6.0-8.3); Sodium 136 mmol/L (136-145)
[2018-09-11] MEDS: MEROPENEM 1 GM/50 ML 1 GM in Premix Bag 1 BAG IVPB SCH ×2 (06:07→14:17)
[2018-09-11] MEDS: Atorvastatin Calcium 40 MG TAB PO SCH (09:22)
[2018-09-11] MEDS: Gabapentin 400 MG CAP PO SCH ×3 (09:22→20:09)
[2018-09-11] MEDS: Famotidine 20 MG TAB PO SCH ×2 (09:26→20:09)
--- NOTE | 2018-09-11 15:17 | PDOC.PN ---
- Subjective Encounter Start Date: 09/11/18 Encounter Start Time: 15:16 Ms. Colorado was seen today in follow-up of diabetic foot infection. She does not have any complaints today. - Objective MAR Reviewed: Yes Vital Signs & Weight: Vital Signs (12 hours) Temp Pulse Resp BP Pulse Ox 09/11/18 13:00 98.0 F 64 18 118/58 L 92 L 09/11/18 08:00 97.4 F L 65 18 133/63 93 L 09/11/18 04:19 97.9 F 63 16 113/53 L 93 L Weight Admit Weight 190 lb 5 oz Weight 190 lb 5 oz Result Diagrams: 09/11/18 04:25 09/11/18 04:25 Additional Labs: Accuchecks 09/11/18 09/11/18 13:22 06:06 POC Glucose 127 H 131 H Phys Exam - Physical Examination HEENT: PERRLA Respiratory: no wheezing, no rales, no rhonchi, clear to auscultation bilateral Cardiovascular: RRR, no significant murmur, no rub Gastrointestinal: soft, non-tender, positive bowel sounds Musculoskeletal: no edema pulses are diminished, bollous lesion on the dorsum of the foot, gangrenous lesion at the base of the 4th and 5th metatarsal Dx/Plan (1) Diabetic infection of right foot Code(s): E11.628 - TYPE 2 DIABETES MELLITUS WITH OTHER SKIN COMPLICATIONS; L08.9 - LOCAL INFECTION OF THE SKIN AND SUBCUTANEOUS TISSUE, UNSP Status: Acute (2) DM2 (diabetes mellitus, type 2) Status: Chronic Qualifiers: Chronic kidney disease stage: stage 3 (moderate) (3) HLD (hyperlipidemia) Code(s): E78.5 - HYPERLIPIDEMIA, UNSPECIFIED Status: Chronic Qualifiers: (4) HTN (hypertension) Code(s): I10 - ESSENTIAL (PRIMARY) HYPERTENSION Status: Chronic Qualifiers: (5) Peripheral vascular disease Code(s): I73.9 - PERIPHERAL VASCULAR DISEASE, UNSPECIFIED Status: Chronic (6) Chronic systolic heart failure Code(s): I50.22 - CHRONIC SYSTOLIC (CONGESTIVE) HEART FAILURE Status: Acute - Plan * Diabetic foot infection- Continue Vancomycin and Meropenem * Await Surgical Evaluation * HTN- blood pressure is stable * DM- blood glucose is stable. * Chronic systolic heart failure- compensated- continue her home medications
[2018-09-11] MEDS ORDERED: Bisacodyl 5 MG TAB PO PRN (15:22)
[2018-09-11] MEDS: Sacubitril 24.5 MG/Valsartan 25.5 MG TABLET PO SCH (20:08)
[2018-09-11] MEDS: Insulin Glargine 15 UNITS in Pre-Filled Syringe 1 EACH SC SCH (20:09)
[2018-09-12] MEDS: HYDROcodone/Acetaminophen 5/325 mg Tablet PO PRN ×3 (00:02→21:22)
[2018-09-12] MEDS: MEROPENEM 1 GM/50 ML 1 GM in Premix Bag 1 BAG IVPB SCH ×4 (00:05→21:21)
[2018-09-12] MEDS: Vancomycin HCl 1.5 GM in Sodium Chloride 0.9% 250 ML 300 ML IVPB SCH (04:27)
[2018-09-12] MEDS ORDERED: Morphine 4 MG/ML VIAL SLOW IVP PRN (04:55)
[2018-09-12] MEDS ORDERED: Bupivacaine HCl 0.5%/Epinephrine 1:200,000/PF 30 ml Vial ONE (09:10)
[2018-09-12] MEDS ORDERED: Fentanyl 250 MCG/5 ML VIAL ONE (09:43)
[2018-09-12] MEDS ORDERED: Bupivacaine PF 0.5% 30 ML VIAL ONE (10:32)
[2018-09-12] MEDS ORDERED: Fentanyl 100 MCG/2 ML VIAL ONE (11:39)
[2018-09-12] MEDS ORDERED: PROPOFOL 200 MG/20 ML VIAL ONE (11:54)
[2018-09-12] MEDS ORDERED: Ondansetron PF 4 MG/2 ML Vial ONE (11:54)
[2018-09-12] MEDS ORDERED: ePHEDrine 50 MG/ML VIAL ONE (11:54)
[2018-09-12] MEDS ORDERED: Glycopyrrolate 0.2 MG/ML 5 ML SYRINGE ONE (11:54)
[2018-09-12] MEDS ORDERED: Lidocaine 1% PF 5 ML VIAL ONE (11:54)
[2018-09-12] MEDS: Atorvastatin Calcium 40 MG TAB PO SCH (13:36)
[2018-09-12] MEDS: FLUoxetine HCl 20 MG CAP PO SCH (13:36)
[2018-09-12] MEDS: Gabapentin 400 MG CAP PO SCH ×3 (13:37→21:21)
[2018-09-12] MEDS: Torsemide 20 MG TAB PO SCH (13:37)
[2018-09-12] MEDS: Sacubitril 24.5 MG/Valsartan 25.5 MG TABLET PO SCH ×2 (13:37→21:21)
[2018-09-12] MEDS: Clopidogrel Bisulfate 75 MG TAB PO SCH (13:37)
[2018-09-12] MEDS: Famotidine 20 MG TAB PO SCH ×2 (13:37→21:21)
[2018-09-12] MEDS: Insulin Glargine 15 UNITS in Pre-Filled Syringe 1 EACH SC SCH ×2 (13:40→21:28)
[2018-09-12] MEDS: Sodium Chloride 0.45% 1,000 ML IV SCH (13:45)
[2018-09-12] MEDS: Morphine 2 MG/ML SYRINGE SLOW IVP PRN ×2 (15:32→19:39)
--- NOTE | 2018-09-12 16:14 | PDOC.PN ---
- Subjective Encounter Start Date: 09/12/18 Encounter Start Time: 16:12 Subjective: s/p I&D R foot earlier today -: pain - Objective MAR Reviewed: Yes Vital Signs & Weight: Vital Signs (12 hours) Temp Pulse Resp BP BP Pulse Ox 09/12/18 14:41 137/63 09/12/18 08:00 97.4 F L 71 18 146/63 H 93 L 09/12/18 04:39 98.0 F 67 18 140/91 H 94 L Weight Admit Weight 190 lb 5 oz Weight 190 lb 5 oz I&O: 09/11/18 09/12/18 09/13/18 06:59 06:59 06:59 Intake Total 1480 Output Total 650 Balance 830 Result Diagrams: 09/11/18 04:25 09/11/18 04:25 Additional Labs: Accuchecks 09/12/18 09/12/18 09/11/18 12:59 05:16 20:11 POC Glucose 165 H 196 H 220 H 09/11/18 17:09 POC Glucose 163 H Microbiology 09/10/18 21:22 Venous blood - Left Hand Blood Culture - Preliminary Specimen has been received and culture in progress. No Growth to date. 09/10/18 21:22 Venous blood - Left Hand Blood Culture - Preliminary NO GROWTH AT 48 HOURS 09/10/18 21:21 Venous blood - Right Arm Blood Culture - Preliminary Specimen has been received and culture in progress. No Growth to date. 09/10/18 21:21 Venous blood - Right Arm Blood Culture - Preliminary NO GROWTH AT 48 HOURS Laboratory Tests 09/07/18 09/08/18 09/10/18 06:23 06:00 21:21 Creatinine 1.21 H 1.23 H 1.69 H 09/11/18 04:25 Creatinine 1.54 H Phys Exam - Physical Examination Constitutional: NAD HEENT: PERRLA, moist MMs, sclera anicteric, oral pharynx no lesions Neck: no nodes, no JVD, supple, full ROM Respiratory: no wheezing, no rales, no rhonchi, clear to auscultation bilateral Cardiovascular: RRR, no significant murmur, no rub Gastrointestinal: soft, non-tender, no distention, positive bowel sounds Musculoskeletal: no edema, pulses present Neurological: non-focal, normal sensation, moves all 4 limbs Psychiatric: normal affect, A&O x 3 Skin: no rash Dx/Plan (1) Diabetic infection of right foot Code(s): E11.628 - TYPE 2 DIABETES MELLITUS WITH OTHER SKIN COMPLICATIONS; L08.9 - LOCAL INFECTION OF THE SKIN AND SUBCUTANEOUS TISSUE, UNSP Status: Acute Comment: s/p repeat I&D 09/12/18.Empiric ABx (2) Chronic systolic heart failure Code(s): I50.22 - CHRONIC SYSTOLIC (CONGESTIVE) HEART FAILURE Status: Acute (3) COPD (chronic obstructive pulmonary disease) Status: Chronic Qualifiers: COPD type: chronic bronchitis Chronic bronchitis type: unspecified Qualified Code(s): J42 - Unspecified chronic bronchitis (4) DM2 (diabetes mellitus, type 2) Status: Chronic Qualifiers: Chronic kidney disease stage: stage 3 (moderate) (5) HLD (hyperlipidemia) Code(s): E78.5 - HYPERLIPIDEMIA, UNSPECIFIED Status: Chronic Qualifiers: (6) HTN (hypertension) Code(s): I10 - ESSENTIAL (PRIMARY) HYPERTENSION Status: Chronic Qualifiers: (7) Nonischemic cardiomyopathy Code(s): I42.9 - CARDIOMYOPATHY, UNSPECIFIED Status: Chronic (8) Peripheral vascular disease Code(s): I73.9 - PERIPHERAL VASCULAR DISEASE, UNSPECIFIED Status: Chronic - Plan continue antibiotics, PT/OT, out of bed/ambulate, DVT proph w/SCDs cont supportive care.pain control. IV ABx -: follow final Cx results -: IVF -: Home meds as bekow. -: am labs * . Review of Systems - Review of Systems Constitutional: weakness, malaise. negative: fever, chills, sweats, other Respiratory: negative: Cough, Dry, Shortness of Breath, Hemoptysis, SOB with Excertion, Pleuritic Pain, Sputum, Wheezing Cardiovascular: negative: chest pain, palpitations, orthopnea, paroxysmal nocturnal dyspnea, edema, light headedness, other Gastrointestinal: negative: Nausea, Vomiting, Abdominal Pain, Diarrhea, Constipation, Melena, Hematochezia, Other Genitourinary: negative: Dysuria, Frequency, Incontinence, Hematuria, Retention , Other Musculoskeletal: Foot Pain. negative: Neck Pain, Shoulder Pain, Arm Pain, Back Pain, Hand Pain, Leg Pain, Other Skin: negative: Rash, Lesions, Vinayak, Bruising, Other Neurological: negative: Weakness, Numbness, Incoordination, Change in Speech, Confusion, Seizures, Other - Medications/Allergies Allergies/Adverse Reactions: Allergies Allergy/AdvReac Type Severity Reaction Status Date / Time No Known Allergies Allergy Verified 11/29/16 23:41 Medications: Current Medications Hydrocodone Bitart/Acetaminophen (Panther 5/325) 2 tab PO Q4H PRN PRN Reason: Severe Pain (7-10) Last Admin: 09/12/18 13:38 Dose: 2 tab Hydrocodone Bitart/Acetaminophen (Panther 5/325) 1 tab PO Q4H PRN PRN Reason: Pain Atorvastatin Calcium (Lipitor) 80 mg PO DAILY [facility] Last Admin: 09/12/18 13:36 Dose: 80 mg Bisacodyl (Dulcolax) 10 mg PO DAILYPRN PRN PRN Reason: Constipation Clopidogrel Bisulfate (Plavix) 75 mg PO DAILY [facility] Last Admin: 09/12/18 13:37 Dose: 75 mg Dextrose/Water (Dextrose 50%) 25 gm SLOW IVP PRN PRN PRN Reason: Hypoglycemia Famotidine (Pepcid) 20 mg PO BID [facility] Last Admin: 09/12/18 13:37 Dose: 20 mg Fluoxetine HCl (Prozac) 40 mg PO DAILY [facility] Last Admin: 09/12/18 13:36 Dose: 40 mg Gabapentin (Neurontin) 400 mg PO TID [facility] Last Admin: 09/12/18 13:57 Dose: Not Given Glucagon (Glucagon) 1 mg IM PRN PRN PRN Reason: Hypoglycemia Dextrose/Water (D5w) 1,000 mls @ 0 mls/hr IV .Q0M PRN PRN Reason: Hypoglycemia Sodium Chloride (1/2 Normal Saline) 1,000 mls @ 55 mls/hr IV .[id number] [facility] Last Admin: 09/12/18 13:45 Dose: 1,000 mls Meropenem 1 gm/ Device 50 mls @ 100 mls/hr IVPB Q8HR [facility] Last Admin: 09/12/18 13:36 Dose: 50 mls Vancomycin HCl 1.5 gm/ Sodium (Chloride) 300 mls @ 200 mls/hr IVPB Q24HR [facility] Last Admin: 09/12/18 04:27 Dose: 300 mls Insulin Glargine 15 units/ (Miscellaneous Medication) 0.15 mls @ 0 mls/hr SC BID [facility] Last Admin: 09/12/18 13:40 Dose: 0.15 mls Insulin Human Lispro (Humalog) 0 units SC .MILD SLIDING SCALE PRN PRN Reason: Mild Correctional Scale Insulin Human Lispro (Humalog) 0 units SC .BEDTIME SLIDING SC PRN PRN Reason: Bedtime Correctional Scale Metolazone (Zaroxolyn) 5 mg PO Q7DAYS [facility] Miscellaneous Medication (Pharmacy To Dose) 1 each IVPB PRN PRN PRN Reason: Pharmacy to dose Morphine Sulfate (Morphine) 2 mg SLOW IVP ONE PRN PRN Reason: Breakthrough Pain Stop: 09/13/18 04:56 Last Admin: 09/12/18 06:08 Dose: 2 mg Morphine Sulfate (Morphine) 2 mg SLOW IVP Q4H PRN PRN Reason: Moderate Pain (4-6) Last Admin: 09/12/18 15:32 Dose: 2 mg Morphine Sulfate (Morphine) 4 mg SLOW IVP Q4H PRN PRN Reason: Severe Pain (7-10) Ondansetron HCl (Zofran Odt) 4 mg PO Q6H PRN PRN Reason: Nausea/Vomiting Ondansetron HCl (Zofran) 4 mg IVP Q6H PRN PRN Reason: Nausea/Vomiting Sacubitril/Valsartan (Entresto 24.5 Mg-25.5 Mg Tablet) 1 tab PO BID [facility] Last Admin: 09/12/18 13:37 Dose: 1 tab Senna/Docusate Sodium (Senokot S) 2 tab PO BID PRN PRN Reason: Constipation Sodium Chloride (Flush - Normal Saline) 10 ml IVF Q12HR [facility] Last Admin: 09/12/18 13:43 Dose: 10 ml Sodium Chloride (Flush - Normal Saline) 10 ml IVF PRN PRN PRN Reason: Saline Flush Torsemide (Demadex) 40 mg PO DAILY [facility] Last Admin: 09/12/18 13:37 Dose: 40 mg Trazodone HCl (Desyrel) 100 mg PO HS PRN PRN Reason: Insomnia
[2018-09-13] MEDS: Morphine 2 MG/ML SYRINGE SLOW IVP PRN ×2 (01:53→06:23)
[2018-09-13 03:46] LABS: Vancomycin, Trough 27.6 ug/mL
[2018-09-13] MEDS: Vancomycin HCl 1.5 GM in Sodium Chloride 0.9% 250 ML 300 ML IVPB SCH (06:07)
[2018-09-13] MEDS: MEROPENEM 1 GM/50 ML 1 GM in Premix Bag 1 BAG IVPB SCH ×3 (06:25→23:26)
--- NOTE | 2018-09-13 07:47 | PDOC.PN ---
- Subjective Encounter Start Date: 09/13/18 Encounter Start Time: 07:47 Subjective: foot pain needing morphine. -: constipated - Objective MAR Reviewed: Yes Vital Signs & Weight: Vital Signs (12 hours) Temp Pulse Resp BP Pulse Ox 09/13/18 00:16 98.3 F 63 18 92/50 L 97 09/12/18 20:00 96 Weight Admit Weight 190 lb 5 oz Weight 190 lb 5 oz I&O: 09/12/18 09/13/18 09/14/18 06:59 06:59 06:59 Intake Total 1480 1400 Output Total 650 Balance 830 1400 Result Diagrams: 09/11/18 04:25 09/11/18 04:25 Additional Labs: Accuchecks 09/13/18 09/12/18 09/12/18 05:54 20:06 17:42 POC Glucose 97 94 112 H 09/12/18 12:59 POC Glucose 165 H Microbiology 09/03/18 12:33 Toe - Right Bacterial Culture - Final 09/03/18 12:33 Toe - Right Anaerobic Culture - Final Methicillin resistant S.aureus No growth. 08/31/18 20:50 Foot - Right Bacterial Culture - Final Methicillin resistant S.aureus Pseudomonas aeruginosa 08/30/18 21:15 Venous blood - Right Arm Blood Culture - Final NO GROWTH IN 5 DAYS 08/30/18 21:10 Venous blood - Left Arm Blood Culture - Final NO GROWTH IN 5 DAYS 09/10/18 21:22 Venous blood - Left Hand Blood Culture - Preliminary NO GROWTH AT 48 HOURS 09/10/18 21:21 Venous blood - Right Arm Blood Culture - Preliminary NO GROWTH AT 48 HOURS Laboratory Tests 09/06/18 09/07/18 09/08/18 06:21 06:23 06:00 Hgb 10.8 L 10.1 L 9.4 L 09/10/18 09/11/18 21:21 04:25 Hgb 10.0 L 8.9 L Radiology Reviewed by me: Yes Phys Exam - Physical Examination Constitutional: NAD sleepy HEENT: PERRLA, moist MMs, sclera anicteric, oral pharynx no lesions Neck: no nodes, no JVD, supple, full ROM Respiratory: no wheezing, no rales, no rhonchi, clear to auscultation bilateral Cardiovascular: RRR, no significant murmur, no rub Gastrointestinal: soft, non-tender, no distention, positive bowel sounds Musculoskeletal: no edema, pulses present Neurological: non-focal, normal sensation, moves all 4 limbs Psychiatric: normal affect, A&O x 3 Skin: no rash Dx/Plan (1) Diabetic infection of right foot Code(s): E11.628 - TYPE 2 DIABETES MELLITUS WITH OTHER SKIN COMPLICATIONS; L08.9 - LOCAL INFECTION OF THE SKIN AND SUBCUTANEOUS TISSUE, UNSP Status: Acute Comment: s/p repeat I&D 09/12/18.Empiric ABx (2) Chronic systolic heart failure Code(s): I50.22 - CHRONIC SYSTOLIC (CONGESTIVE) HEART FAILURE Status: Chronic Comment: on entresto,Statin and demadex (3) COPD (chronic obstructive pulmonary disease) Status: Chronic Qualifiers: COPD type: chronic bronchitis Chronic bronchitis type: unspecified Qualified Code(s): J42 - Unspecified chronic bronchitis (4) DM2 (diabetes mellitus, type 2) Status: Chronic Qualifiers: Chronic kidney disease stage: stage 3 (moderate) (5) HLD (hyperlipidemia) Code(s): E78.5 - HYPERLIPIDEMIA, UNSPECIFIED Status: Chronic Qualifiers: (6) HTN (hypertension) Code(s): I10 - ESSENTIAL (PRIMARY) HYPERTENSION Status: Chronic Qualifiers: (7) Nonischemic cardiomyopathy Code(s): I42.9 - CARDIOMYOPATHY, UNSPECIFIED Status: Chronic Comment: ef 30- 35% (8) Peripheral vascular disease Code(s): I73.9 - PERIPHERAL VASCULAR DISEASE, UNSPECIFIED Status: Chronic Comment: s/p R SFA angioplasty 08/25.on Plavix (9) CKD (chronic kidney disease) Code(s): N18.9 - CHRONIC KIDNEY DISEASE, UNSPECIFIED Status: Chronic Qualifiers: Chronic kidney disease stage: stage 3 (moderate) Qualified Code(s): N18.3 - Chronic kidney disease, stage 3 (moderate) - Plan continue antibiotics, PT/OT, out of bed/ambulate, DVT proph w/SCDs stop IVF. restart Demadex.cont zaroxolyn q7 days and entresto.monitor BP -: monitor fluid status carefully given H/O CHF. currently euvolemic -: Cont IC Abx and Wound care. Needs BKA per GS-pt to decide -: supportive care. -: am labs * . Review of Systems - Medications/Allergies Allergies/Adverse Reactions: Allergies Allergy/AdvReac Type Severity Reaction Status Date / Time No Known Allergies Allergy Verified 11/29/16 23:41 Medications: Current Medications Hydrocodone Bitart/Acetaminophen (Turner 5/325) 2 tab PO Q4H PRN PRN Reason: Severe Pain (7-10) Last Admin: 09/12/18 13:38 Dose: 2 tab Hydrocodone Bitart/Acetaminophen (Turner 5/325) 1 tab PO Q4H PRN PRN Reason: Pain Last Admin: 09/12/18 21:22 Dose: 1 tab Atorvastatin Calcium (Lipitor) 80 mg PO DAILY [facility] Last Admin: 09/12/18 13:36 Dose: 80 mg Bisacodyl (Dulcolax) 10 mg PO DAILYPRN PRN PRN Reason: Constipation Clopidogrel Bisulfate (Plavix) 75 mg PO DAILY [facility] Last Admin: 09/12/18 13:37 Dose: 75 mg Dextrose/Water (Dextrose 50%) 25 gm SLOW IVP PRN PRN PRN Reason: Hypoglycemia Famotidine (Pepcid) 20 mg PO BID [facility] Last Admin: 09/12/18 21:21 Dose: 20 mg Fluoxetine HCl (Prozac) 40 mg PO DAILY [facility] Last Admin: 09/12/18 13:36 Dose: 40 mg Gabapentin (Neurontin) 400 mg PO TID [facility] Last Admin: 09/12/18 21:21 Dose: 400 mg Glucagon (Glucagon) 1 mg IM PRN PRN PRN Reason: Hypoglycemia Dextrose/Water (D5w) 1,000 mls @ 0 mls/hr IV .Q0M PRN PRN Reason: Hypoglycemia Sodium Chloride (1/2 Normal Saline) 1,000 mls @ 55 mls/hr IV .[id number] [facility] Last Admin: 09/12/18 13:45 Dose: 1,000 mls Meropenem 1 gm/ Device 50 mls @ 100 mls/hr IVPB Q8HR [facility] Last Admin: 09/13/18 06:25 Dose: 50 mls Insulin Glargine 15 units/ (Miscellaneous Medication) 0.15 mls @ 0 mls/hr SC BID [facility] Last Admin: 09/12/18 21:28 Dose: Not Given Vancomycin HCl 1 gm/ Device 200 mls @ 200 mls/hr IVPB Q24HR [facility] Insulin Human Lispro (Humalog) 0 units SC .MILD SLIDING SCALE PRN PRN Reason: Mild Correctional Scale Insulin Human Lispro (Humalog) 0 units SC .BEDTIME SLIDING SC PRN PRN Reason: Bedtime Correctional Scale Metolazone (Zaroxolyn) 5 mg PO Q7DAYS [facility] Miscellaneous Medication (Pharmacy To Dose) 1 each IVPB PRN PRN PRN Reason: Pharmacy to dose Morphine Sulfate (Morphine) 2 mg SLOW IVP Q4H PRN PRN Reason: Moderate Pain (4-6) Last Admin: 09/13/18 06:23 Dose: 2 mg Morphine Sulfate (Morphine) 4 mg SLOW IVP Q4H PRN PRN Reason: Severe Pain (7-10) Ondansetron HCl (Zofran Odt) 4 mg PO Q6H PRN PRN Reason: Nausea/Vomiting Ondansetron HCl (Zofran) 4 mg IVP Q6H PRN PRN Reason: Nausea/Vomiting Sacubitril/Valsartan (Entresto 24.5 Mg-25.5 Mg Tablet) 1 tab PO BID [facility] Last Admin: 09/12/18 21:21 Dose: 1 tab Senna/Docusate Sodium (Senokot S) 2 tab PO BID PRN PRN Reason: Constipation Sodium Chloride (Flush - Normal Saline) 10 ml IVF Q12HR [facility] Last Admin: 09/12/18 21:27 Dose: 10 ml Sodium Chloride (Flush - Normal Saline) 10 ml IVF PRN PRN PRN Reason: Saline Flush Last Admin: 09/13/18 06:25 Dose: 10 ml Torsemide (Demadex) 40 mg PO DAILY [facility] Last Admin: 09/12/18 13:37 Dose: 40 mg Trazodone HCl (Desyrel) 100 mg PO HS PRN PRN Reason: Insomnia
[2018-09-13] MEDS: HYDROcodone/Acetaminophen 5/325 mg Tablet PO PRN ×3 (08:04→19:43)
[2018-09-13] MEDS: Famotidine 20 MG TAB PO SCH (08:06)
[2018-09-13] MEDS: Insulin Glargine 15 UNITS in Pre-Filled Syringe 1 EACH SC SCH ×2 (08:06→19:54)
[2018-09-13] MEDS: Atorvastatin Calcium 40 MG TAB PO SCH (08:06)
[2018-09-13] MEDS: FLUoxetine HCl 20 MG CAP PO SCH (08:06)
[2018-09-13] MEDS: Clopidogrel Bisulfate 75 MG TAB PO SCH (08:06)
[2018-09-13] MEDS: Gabapentin 400 MG CAP PO SCH ×3 (08:07→19:45)
[2018-09-13] MEDS: Sodium Chloride 0.45% 1,000 ML IV SCH (08:08)
[2018-09-13] MEDS: Torsemide 20 MG TAB PO SCH (08:10)
[2018-09-13] MEDS: Sacubitril 24.5 MG/Valsartan 25.5 MG TABLET PO SCH ×2 (08:10→19:45)
[2018-09-13] MEDS ORDERED: Polyethylene Glycol 3350 17 GM Packet PO PRN (11:40)
[2018-09-13] MEDS: Morphine 4 MG/ML VIAL SLOW IVP PRN ×3 (12:00→23:29)
[2018-09-13] MEDS: Vancomycin HCl 1 GM in Premix Bag 1 BAG IVPB SCH (12:03)
--- NOTE | 2018-09-13 14:05 | PDOC.GSPN ---
Surgery Progress Note: Subj - Subjective Narrative: Patient examined with wound care team today. She is still having a lot of pain in her foot. Tissues appeared tenuous but potentially viable. In any event there is no additional necrosis in the wound today. The VAC dressing was replaced. I had a long discussion with the patient about treatment options. I think a lot of her pain is not from the wound itself but from ischemia in her foot. She may be better off from a functional end pain management standpoint to proceed with BKA in my opinion. We discussed the increased risk of phantom pain with prolonged ischemic pain prior to amputation. We discussed the options of prosthesis and rehabilitation. I think she would be functional with a prosthesis and I think she would heal a below-knee amputation. She is going to think this over. I will see her again with the wound care team. If she decides to proceed with below-knee amputation, she is to ask her nurse to contact me to get her on the OR schedule. Otherwise we will continue with attempt at foot salvage, but this is likely to be a prolonged process and has only a moderate chance of success. Surgery Progress Note: Obj - Vital signs Vital signs: Vital Signs - Most Recent Temp Pulse Resp BP Pulse Ox 97.6 F 72 16 120/60 93 L 09/13/18 08:00 09/13/18 08:00 09/13/18 08:00 09/13/18 08:00 09/13/18 08:00 Surgery Progress Note: Results - Labs Result Diagrams: 09/11/18 04:25 09/11/18 04:25 Lab results: Laboratory Results - last 24 hr 09/13/18 09/13/18 09/13/18 03:13 05:54 11:10 POC Glucose 97 126 H Vancomycin Trough 27.6
--- NOTE | 2018-09-13 20:36 | CON ---
DATE OF CONSULTATION: 09/13/2018 REASON FOR CONSULTATION: Right foot amputation with recrudescence of inflammatory process. HISTORY OF PRESENT ILLNESS: A 52-year-old, whom I had seen in the past when she presented with a history of type 2 diabetes, nonischemic cardiomyopathy, EF 30% to 35%, as well as COPD and chronic smoking. At that time, she had flank pain and back pain. There had been a concern with spinal infection which was not confirmed. In 2016, this patient underwent lower extremity angiogram and then subsequently above-knee right femoral-popliteal bypass with a reversed saphenous vein graft. This time, she is admitted with osteomyelitis of the right fifth ray. She was seen by Dr. Gill. I did not find a surgical note, but there was a pathology from the amputated 5th toe from 09/04. This demonstrated ischemic ulceration with osteomyelitis and inflammatory changes extended to the soft tissue resection margin. I believe the patient had been transferred to [place] on antimicrobial therapy with Cipro, vancomycin, and maybe possibly with Flagyl, and then she developed recrudescence of inflammatory changes with more areas of necrosis. The cultures from the amputation from August 31 indicated methicillin-resistant Staph aureus and Pseudomonas aeruginosa. The Pseudomonas was intermediate susceptibility to quinolones. The patient was readmitted because of this development and had a repeat debridement procedure. She is having quite a bit of pain at the site. She also had a revascularization by Dr. Max with long segment of SFA angioplastied on the right side. No stents were placed. No headaches, visual symptoms, sore throat, odynophagia, or dysphagia. No cough or sputum production or chest pain. No abdominal pain or diarrhea. No genitourinary symptoms. No other joint symptoms. PAST MEDICAL HISTORY: Includes type 2 diabetes, peripheral vascular disease with prior left lower extremity and now more recently a right upper extremity revascularization procedures, nonischemic cardiomyopathy, hypertension, chronic smoking, COPD, bypass graft surgery in 2018. I bet that her cardiomyopathy is actually ischemic, not nonischemic as I had initially stated. She had a left first toe amputation and now a right fifth toe amputation. SOCIAL HISTORY: Drinks occasionally. Had been smoking until a few weeks ago. ALLERGY HISTORY: None. FAMILY HISTORY: Noncontributory. CURRENT MEDICATIONS: 1. Atorvastatin. 2. Dulcolax. 3. Plavix. 4. Insulin. 5. Meropenem. 6. Vancomycin. PHYSICAL EXAMINATION: VITAL SIGNS: T-max 98.4, blood pressure 120/60, pulse 72, respirations 16 to 18, O2 saturation 93% to 97%. SKIN: Shows the right amputation site, the wound margins were covered, and we did not see any necrosis beyond the wound area. The photos taken demonstrate area of dusky red tissue at the base of the wound with kind of bluish discoloration surrounding it. In the ankle, right side, there is an area of tattooing. There is a little blister of the dorsum of the foot, right side. She has a peripheral IV access. HEENT: There is no lymphadenopathy. Ocular movements conjugate. Oral cavity with still quite a few teeth in place with marked decay and gum disease. NECK: Supple. No jugular venous distention or carotid bruits. LUNGS: Symmetric. Clear breath sounds. HEART: S1 and S2. Regular rate. No S3 or S4. ABDOMEN: Soft, not distended or tender. No ascites. No bladder distention. EXTREMITIES: No joint inflammatory activity. I could not feel any popliteals in the right side. The toes have somewhat delayed cap refill, but they are warm. She is able to move extremities with limitations imposed by the inflammatory process. NEUROLOGIC: Cognitive function appears to be intact. LABORATORY DATA: White cell count 10.3 and 8.8, hemoglobin 10, and platelets 279 with normal differential except for some monocytosis. Sodium 136, creatinine 1.54. Liver profile normal, albumin 2.9, globulin 3.0. Vancomycin trough is 27.6. Microbiology: We have negative blood cultures at 48 hours and the previous microbiology noted above. We have a foot x-ray from September 10 which showed postsurgical changes distal to the right fifth metatarsal. ASSESSMENT: 1. Type 2 diabetes, ischemic cardiomyopathy with prior bypass graft surgery, peripheral vascular disease with previous left femoral-popliteal bypass and now more recent right SFA angioplasty. 2. Osteomyelitis of the right fifth toe, status post ray amputation with recrudescence of inflammatory change. DISCUSSION: The reasons for recrudescence include the persistence of infection at the margin of amputation as noted by the pathology report as well as the lack of susceptibility of the Pseudomonas to the ciprofloxacin, antimicrobial given as part of the regimen for discharge planning at the end of August. May continue meropenem and vancomycin for the time being. She will need a PICC line placement and protracted IV antimicrobial therapy administration and may continue using both agents. The end date of therapy will be October 24. She is at risk for extension of areas of necrosis as well as further amputation even a BK amputation risk is present. Job ID: [id number]
[2018-09-14] MEDS: Famotidine 20 MG TAB PO SCH ×3 (05:43→21:59)
[2018-09-14] MEDS: MEROPENEM 1 GM/50 ML 1 GM in Premix Bag 1 BAG IVPB SCH ×3 (05:44→21:59)
[2018-09-14] MEDS: Polyethylene Glycol 3350 17 GM Packet PO PRN (05:44)
[2018-09-14] MEDS: Morphine 4 MG/ML VIAL SLOW IVP PRN ×4 (05:47→22:00)
[2018-09-14 06:05] LABS: #Eosinphils 0.1 thou/uL (0.0-0.7); #Lymphocytes 1.6 thou/uL (1.20-3.40); #Monocytes 0.7 thou/uL (0.11-0.59); #Neutrophils 6.8 thou/uL (1.40-6.50); %Basophils 0.2 % (0.0-1.0); %Eosinophils 0.7 % (0.0-10.0); %Lymphocytes 17.4 % (21.0-51.0); %Neutrophils 73.7 % (42.0-75.0); Hemoglobin 9.5 g/dL (12.0-16.0); Mean Corpuscular Hemoglobin 30.5 pg (27.0-31.0); Mean Corpuscular Volume 95.4 fL (78.0-98.0); Mean Platelet Volume 7.4 fL (7.4-10.4); Platelet Count 336 thou/uL (130-400); RBC Distribution Width 11.5 % (11.5-14.5); Red Blood Cell (RBC) Count 3.11 mill/uL (4.20-5.40); White Blood Cell (WBC) Count 9.2 thou/uL (4.8-10.8)
[2018-09-14 06:29] LABS: Anion Gap 10 mmol/L (10-20); BUN (Urea Nitrogen) 35 mg/dL (9.8-20.1); Calc. Creatinine Clearance 66 mL/min (70-130); Carbon Dioxide 30 mmol/L (22-29); Chloride 101 mmol/L (98-107); Estimated GFR-MDRD 41; Glucose 168 mg/dL (70-105); Potassium 4.1 mmol/L (3.5-5.1); Sodium 137 mmol/L (136-145)
[2018-09-14] MEDS: Atorvastatin Calcium 40 MG TAB PO SCH (08:40)
[2018-09-14] MEDS: FLUoxetine HCl 20 MG CAP PO SCH (08:45)
[2018-09-14] MEDS: Clopidogrel Bisulfate 75 MG TAB PO SCH (08:45)
[2018-09-14] MEDS: Insulin Glargine 15 UNITS in Pre-Filled Syringe 1 EACH SC SCH ×2 (08:46→20:51)
[2018-09-14] MEDS: Gabapentin 400 MG CAP PO SCH ×3 (08:46→21:59)
[2018-09-14] MEDS: Sacubitril 24.5 MG/Valsartan 25.5 MG TABLET PO SCH ×2 (08:47→21:59)
[2018-09-14] MEDS: HYDROcodone/Acetaminophen 5/325 mg Tablet PO PRN ×3 (08:48→20:01)
[2018-09-14] MEDS: Torsemide 20 MG TAB PO SCH (08:48)
--- NOTE | 2018-09-14 10:42 | PDOC.PN ---
- Subjective Encounter Start Date: 09/14/18 Encounter Start Time: 09:15 Subjective: feels better, no sob now, is on nasal canula this am -: no chest pain or palp -: foot pain is better - Objective MAR Reviewed: Yes Vital Signs & Weight: Vital Signs (12 hours) Temp Pulse Resp BP Pulse Ox 09/14/18 08:00 98.1 F 70 18 143/63 H 91 L Weight Admit Weight 190 lb 5 oz Weight 190 lb 5 oz I&O: 09/13/18 09/14/18 09/15/18 06:59 06:59 06:59 Intake Total 1400 1865 Balance 1400 1865 Result Diagrams: 09/14/18 05:50 09/14/18 05:50 Additional Labs: Accuchecks 09/13/18 09/13/18 15:34 11:10 POC Glucose 140 H 126 H Phys Exam - Physical Examination HEENT: PERRLA, moist MMs Neck: no JVD, supple Respiratory: no wheezing, no rales rhonchi+ Cardiovascular: RRR, no significant murmur Gastrointestinal: soft, no distention, positive bowel sounds Musculoskeletal: pulses present right foot in dressing and vac Neurological: non-focal, moves all 4 limbs Psychiatric: normal affect, A&O x 3 Dx/Plan (1) Diabetic infection of right foot Code(s): E11.628 - TYPE 2 DIABETES MELLITUS WITH OTHER SKIN COMPLICATIONS; L08.9 - LOCAL INFECTION OF THE SKIN AND SUBCUTANEOUS TISSUE, UNSP Status: Acute Comment: s/p I&D 09/12/18.Empiric ABx (2) Chronic systolic heart failure Code(s): I50.22 - CHRONIC SYSTOLIC (CONGESTIVE) HEART FAILURE Status: Chronic Comment: on entresto,Statin and demadex, ef of 30% (3) COPD (chronic obstructive pulmonary disease) Status: Chronic Qualifiers: COPD type: chronic bronchitis Chronic bronchitis type: unspecified Qualified Code(s): J42 - Unspecified chronic bronchitis (4) DM2 (diabetes mellitus, type 2) Status: Chronic Qualifiers: Diabetes mellitus fci insulin use: with exterminator helper termite use Diabetes mellitus complication detail: with chronic kidney disease Chronic kidney disease stage: stage 3 (moderate) (5) HLD (hyperlipidemia) Code(s): E78.5 - HYPERLIPIDEMIA, UNSPECIFIED Status: Chronic Qualifiers: Hyperlipidemia type: unspecified (6) HTN (hypertension) Code(s): I10 - ESSENTIAL (PRIMARY) HYPERTENSION Status: Chronic Qualifiers: (7) Nonischemic cardiomyopathy Code(s): I42.9 - CARDIOMYOPATHY, UNSPECIFIED Status: Chronic Comment: ef 30- 35% (8) Peripheral vascular disease Code(s): I73.9 - PERIPHERAL VASCULAR DISEASE, UNSPECIFIED Status: Chronic Comment: s/p R SFA angioplasty 08/25.on Plavix (9) Tobacco abuse Code(s): Z72.0 - TOBACCO USE Status: Chronic - Plan likely bka on monday if she does not improve including pain, morphine prn -: wean and dc nasal oxygen, no wheezing on clinical exam -: she just quit smoking, nebs prn -: is on meropenem and vanc, lipitor, plavix, lantus 15 u bid -: watch for renal function on entresto, demadex and weekly zaroxolyn * . Review of Systems - Medications/Allergies Allergies/Adverse Reactions: Allergies Allergy/AdvReac Type Severity Reaction Status Date / Time No Known Allergies Allergy Verified 11/29/16 23:41 Medications: Current Medications Hydrocodone Bitart/Acetaminophen ([place] 5/325) 2 tab PO Q4H PRN PRN Reason: Severe Pain (7-10) Last Admin: 09/14/18 08:48 Dose: 2 tab Hydrocodone Bitart/Acetaminophen ([place] 5/325) 1 tab PO Q4H PRN PRN Reason: Pain Last Admin: 09/12/18 21:22 Dose: 1 tab Atorvastatin Calcium (Lipitor) 80 mg PO DAILY [facility] Last Admin: 09/14/18 08:40 Dose: 80 mg Bisacodyl (Dulcolax) 10 mg PO DAILYPRN PRN PRN Reason: Constipation Clopidogrel Bisulfate (Plavix) 75 mg PO DAILY [facility] Last Admin: 09/14/18 08:45 Dose: 75 mg Dextrose/Water (Dextrose 50%) 25 gm SLOW IVP PRN PRN PRN Reason: Hypoglycemia Famotidine (Pepcid) 20 mg PO BID [facility] Last Admin: 09/14/18 08:45 Dose: 20 mg Fluoxetine HCl (Prozac) 40 mg PO DAILY [facility] Last Admin: 09/14/18 08:45 Dose: 40 mg Gabapentin (Neurontin) 400 mg PO TID [facility] Last Admin: 09/14/18 08:46 Dose: 400 mg Glucagon (Glucagon) 1 mg IM PRN PRN PRN Reason: Hypoglycemia Dextrose/Water (D5w) 1,000 mls @ 0 mls/hr IV .Q0M PRN PRN Reason: Hypoglycemia Meropenem 1 gm/ Device 50 mls @ 100 mls/hr IVPB Q8HR [facility] Last Admin: 09/14/18 05:44 Dose: 50 mls Insulin Glargine 15 units/ (Miscellaneous Medication) 0.15 mls @ 0 mls/hr SC BID [facility] Last Admin: 09/14/18 08:46 Dose: 0.15 mls Vancomycin HCl 1 gm/ Device 200 mls @ 200 mls/hr IVPB Q24HR [facility] Last Admin: 09/13/18 12:03 Dose: 200 mls Insulin Human Lispro (Humalog) 0 units SC .MILD SLIDING SCALE PRN PRN Reason: Mild Correctional Scale Insulin Human Lispro (Humalog) 0 units SC .BEDTIME SLIDING SC PRN PRN Reason: Bedtime Correctional Scale Metolazone (Zaroxolyn) 5 mg PO Q7DAYS [facility] Miscellaneous Medication (Pharmacy To Dose) 1 each IVPB PRN PRN PRN Reason: Pharmacy to dose Morphine Sulfate (Morphine) 2 mg SLOW IVP Q4H PRN PRN Reason: Moderate Pain (4-6) Last Admin: 09/13/18 06:23 Dose: 2 mg Morphine Sulfate (Morphine) 4 mg SLOW IVP Q4H PRN PRN Reason: Severe Pain (7-10) Last Admin: 09/14/18 09:58 Dose: 4 mg Ondansetron HCl (Zofran Odt) 4 mg PO Q6H PRN PRN Reason: Nausea/Vomiting Ondansetron HCl (Zofran) 4 mg IVP Q6H PRN PRN Reason: Nausea/Vomiting Polyethylene Glycol (Miralax) 17 gm PO DAILY PRN PRN Reason: Constipation Last Admin: 09/14/18 05:44 Dose: 17 gm Sacubitril/Valsartan (Entresto 24.5 Mg-25.5 Mg Tablet) 1 tab PO BID [facility] Last Admin: 09/14/18 08:47 Dose: 1 tab Senna/Docusate Sodium (Senokot S) 2 tab PO BID PRN PRN Reason: Constipation Sodium Chloride (Flush - Normal Saline) 10 ml IVF Q12HR [facility] Last Admin: 09/14/18 09:53 Dose: 10 ml Sodium Chloride (Flush - Normal Saline) 10 ml IVF PRN PRN PRN Reason: Saline Flush Last Admin: 09/13/18 06:25 Dose: 10 ml Torsemide (Demadex) 40 mg PO DAILY [facility] Last Admin: 09/14/18 08:48 Dose: 40 mg Trazodone HCl (Desyrel) 100 mg PO HS PRN PRN Reason: Insomnia
[2018-09-14] MEDS: Vancomycin HCl 1 GM in Premix Bag 1 BAG IVPB SCH (11:41)
[2018-09-14] MEDS: HumaLOG 300 UNITS/3 ML VIAL SC PRN (11:42)
--- NOTE | 2018-09-14 14:07 | PDOC.GSPN ---
Surgery Progress Note: Subj - Subjective Narrative: VAC is in place. Patient states that her pain level is tolerable. She is going to wait until Monday to decide whether to proceed with below-knee amputation. She wants to see how the wound looks and also talked to her sister about her options. I did answer some questions for her, and we'll see her on Monday with the wound care team at which point we will decide whether to continue with wound VAC and antibiotics or go ahead with below-knee amputation. Dr. Dodd is on this weekend in case her status acutely worsens, otherwise I will see her on Monday. Surgery Progress Note: Obj - Vital signs Vital signs: Vital Signs - Most Recent Temp Pulse Resp BP Pulse Ox 98.1 F 70 18 143/63 H 91 L 09/14/18 08:00 09/14/18 08:00 09/14/18 08:00 09/14/18 08:00 09/14/18 08:00 Surgery Progress Note: Results - Labs Result Diagrams: 09/14/18 05:50 09/14/18 05:50 Lab results: Laboratory Results - last 24 hr 09/14/18 09/14/18 09/14/18 05:50 05:50 11:11 WBC 9.2 RBC 3.11 L Hgb 9.5 L Hct 29.6 L MCV 95.4 MCH 30.5 MCHC 32.0 RDW 11.5 Plt Count 336 MPV 7.4 Neutrophils % 73.7 Lymphocytes % 17.4 L Monocytes % 8.0 Eosinophils % 0.7 Basophils % 0.2 Neutrophils # 6.8 H Lymphocytes # 1.6 Monocytes # 0.7 H Eosinophils # 0.1 Basophils # 0.0 Sodium 137 Potassium 4.1 Chloride 101 Carbon Dioxide 30 H Anion Gap 10 BUN 35 H Creatinine 1.35 H Estimated GFR (MDRD) 41 Glucose 168 H POC Glucose 163 H Calcium 9.0
[2018-09-15] MEDS: Morphine 2 MG/ML SYRINGE SLOW IVP PRN ×2 (00:51→11:56)
[2018-09-15] MEDS: MEROPENEM 1 GM/50 ML 1 GM in Premix Bag 1 BAG IVPB SCH ×3 (07:25→22:11)
[2018-09-15] MEDS: Morphine 4 MG/ML VIAL SLOW IVP PRN (07:47)
[2018-09-15] MEDS: Famotidine 20 MG TAB PO SCH ×2 (07:57→20:27)
[2018-09-15] MEDS: Clopidogrel Bisulfate 75 MG TAB PO SCH (07:57)
[2018-09-15] MEDS: Atorvastatin Calcium 40 MG TAB PO SCH (07:57)
[2018-09-15] MEDS: FLUoxetine HCl 20 MG CAP PO SCH (07:57)
[2018-09-15] MEDS: Sacubitril 24.5 MG/Valsartan 25.5 MG TABLET PO SCH ×2 (07:58→20:27)
[2018-09-15] MEDS: Torsemide 20 MG TAB PO SCH (07:58)
[2018-09-15] MEDS: Insulin Glargine 15 UNITS in Pre-Filled Syringe 1 EACH SC SCH ×2 (07:58→20:26)
[2018-09-15] MEDS: Gabapentin 400 MG CAP PO SCH ×3 (07:58→20:27)
[2018-09-15 11:25] LABS: Vancomycin, Trough 26.1 ug/mL
[2018-09-15] MEDS: Vancomycin HCl 1 GM in Premix Bag 1 BAG IVPB SCH (11:28)
--- NOTE | 2018-09-15 11:48 | PDOC.PN ---
- Subjective Encounter Start Date: 09/15/18 Encounter Start Time: 10:45 Subjective: had shower this am, feels better -: pain is better controlled now -: breathing rooming air and comfortable - Objective MAR Reviewed: Yes Vital Signs & Weight: Vital Signs (12 hours) Temp Pulse Resp BP BP Pulse Ox 09/15/18 09:08 158/70 H 09/15/18 08:00 93 L 09/15/18 07:52 97.4 F L 79 18 179/75 H 93 L Weight Admit Weight 190 lb 5 oz Weight 190 lb 5 oz I&O: 09/14/18 09/15/18 09/16/18 06:59 06:59 06:59 Intake Total 1865 1360 Balance 1865 1360 Result Diagrams: 09/14/18 05:50 09/14/18 05:50 Additional Labs: Accuchecks 09/15/18 09/15/18 09/14/18 10:59 06:00 19:53 POC Glucose 153 H 127 H 123 H 09/14/18 15:58 POC Glucose 96 Phys Exam - Physical Examination HEENT: PERRLA, moist MMs Neck: no JVD, supple Respiratory: no wheezing, no rales Cardiovascular: RRR, no significant murmur Gastrointestinal: soft, non-tender, positive bowel sounds Musculoskeletal: pulses present right foot in wound vac and dressing Neurological: non-focal, moves all 4 limbs Psychiatric: normal affect, A&O x 3 Dx/Plan (1) Diabetic infection of right foot Code(s): E11.628 - TYPE 2 DIABETES MELLITUS WITH OTHER SKIN COMPLICATIONS; L08.9 - LOCAL INFECTION OF THE SKIN AND SUBCUTANEOUS TISSUE, UNSP Status: Acute Comment: s/p I&D 09/12/18.Empiric ABx (2) Chronic systolic heart failure Code(s): I50.22 - CHRONIC SYSTOLIC (CONGESTIVE) HEART FAILURE Status: Chronic Comment: on entresto,Statin and demadex, ef of 30% (3) COPD (chronic obstructive pulmonary disease) Status: Chronic Qualifiers: COPD type: chronic bronchitis Chronic bronchitis type: unspecified Qualified Code(s): J42 - Unspecified chronic bronchitis (4) DM2 (diabetes mellitus, type 2) Status: Chronic Qualifiers: Diabetes mellitus skilled nursing insulin use: with skilled nursing use Diabetes mellitus complication detail: with chronic kidney disease Chronic kidney disease stage: stage 3 (moderate) (5) HLD (hyperlipidemia) Code(s): E78.5 - HYPERLIPIDEMIA, UNSPECIFIED Status: Chronic Qualifiers: Hyperlipidemia type: unspecified (6) HTN (hypertension) Code(s): I10 - ESSENTIAL (PRIMARY) HYPERTENSION Status: Chronic Qualifiers: (7) Nonischemic cardiomyopathy Code(s): I42.9 - CARDIOMYOPATHY, UNSPECIFIED Status: Chronic Comment: ef 30- 35% (8) Peripheral vascular disease Code(s): I73.9 - PERIPHERAL VASCULAR DISEASE, UNSPECIFIED Status: Chronic Comment: s/p R SFA angioplasty 08/25.on Plavix (9) Tobacco abuse Code(s): Z72.0 - TOBACCO USE Status: Chronic - Plan pain is better now, still hurts though -: for debridement on monday and possible amp -: continue meropenem and vanc -: renal function test in am -: is on entresto, plavix, lipitor and morphine prn * . Review of Systems - Medications/Allergies Allergies/Adverse Reactions: Allergies Allergy/AdvReac Type Severity Reaction Status Date / Time No Known Allergies Allergy Verified 11/29/16 23:41 Medications: Current Medications Hydrocodone Bitart/Acetaminophen ([place] 5/325) 2 tab PO Q4H PRN PRN Reason: Severe Pain (7-10) Last Admin: 09/14/18 20:01 Dose: 2 tab Hydrocodone Bitart/Acetaminophen ([place] 5/325) 1 tab PO Q4H PRN PRN Reason: Pain Last Admin: 09/12/18 21:22 Dose: 1 tab Atorvastatin Calcium (Lipitor) 80 mg PO DAILY [facility] Last Admin: 09/15/18 07:57 Dose: 80 mg Bisacodyl (Dulcolax) 10 mg PO DAILYPRN PRN PRN Reason: Constipation Clopidogrel Bisulfate (Plavix) 75 mg PO DAILY [facility] Last Admin: 09/15/18 07:57 Dose: 75 mg Dextrose/Water (Dextrose 50%) 25 gm SLOW IVP PRN PRN PRN Reason: Hypoglycemia Famotidine (Pepcid) 20 mg PO BID [facility] Last Admin: 09/15/18 07:57 Dose: 20 mg Fluoxetine HCl (Prozac) 40 mg PO DAILY [facility] Last Admin: 09/15/18 07:57 Dose: 40 mg Gabapentin (Neurontin) 400 mg PO TID [facility] Last Admin: 09/15/18 07:58 Dose: 400 mg Glucagon (Glucagon) 1 mg IM PRN PRN PRN Reason: Hypoglycemia Dextrose/Water (D5w) 1,000 mls @ 0 mls/hr IV .Q0M PRN PRN Reason: Hypoglycemia Meropenem 1 gm/ Device 50 mls @ 100 mls/hr IVPB Q8HR [facility] Last Admin: 09/15/18 07:25 Dose: 50 mls Insulin Glargine 15 units/ (Miscellaneous Medication) 0.15 mls @ 0 mls/hr SC BID [facility] Last Admin: 09/15/18 07:58 Dose: 0.15 mls Vancomycin HCl 750 mg/ Sodium (Chloride) 250 mls @ 250 mls/hr IVPB 1200 YUD[facility] Insulin Human Lispro (Humalog) 0 units SC .MILD SLIDING SCALE PRN PRN Reason: Mild Correctional Scale Last Admin: 09/14/18 11:42 Dose: 2 unit Insulin Human Lispro (Humalog) 0 units SC .BEDTIME SLIDING SC PRN PRN Reason: Bedtime Correctional Scale Metolazone (Zaroxolyn) 5 mg PO Q7DAYS [facility] Miscellaneous Medication (Pharmacy To Dose) 1 each IVPB PRN PRN PRN Reason: Pharmacy to dose Morphine Sulfate (Morphine) 2 mg SLOW IVP Q4H PRN PRN Reason: Moderate Pain (4-6) Last Admin: 09/15/18 00:51 Dose: 2 mg Morphine Sulfate (Morphine) 4 mg SLOW IVP Q4H PRN PRN Reason: Severe Pain (7-10) Last Admin: 09/15/18 07:47 Dose: 4 mg Ondansetron HCl (Zofran Odt) 4 mg PO Q6H PRN PRN Reason: Nausea/Vomiting Ondansetron HCl (Zofran) 4 mg IVP Q6H PRN PRN Reason: Nausea/Vomiting Polyethylene Glycol (Miralax) 17 gm PO DAILY PRN PRN Reason: Constipation Last Admin: 09/14/18 05:44 Dose: 17 gm Sacubitril/Valsartan (Entresto 24.5 Mg-25.5 Mg Tablet) 1 tab PO BID [facility] Last Admin: 09/15/18 07:58 Dose: 1 tab Senna/Docusate Sodium (Senokot S) 2 tab PO BID PRN PRN Reason: Constipation Sodium Chloride (Flush - Normal Saline) 10 ml IVF Q12HR [facility] Last Admin: 09/15/18 07:59 Dose: 10 ml Sodium Chloride (Flush - Normal Saline) 10 ml IVF PRN PRN PRN Reason: Saline Flush Last Admin: 09/13/18 06:25 Dose: 10 ml Torsemide (Demadex) 40 mg PO DAILY [facility] Last Admin: 09/15/18 07:58 Dose: 40 mg Trazodone HCl (Desyrel) 100 mg PO HS PRN PRN Reason: Insomnia
[2018-09-15] MEDS: HumaLOG 300 UNITS/3 ML VIAL SC PRN (11:57)
[2018-09-15 15:16] LABS: HBSAg Index 0.48 S/CO (0-0.99); Hep B Surf Ag Non-Reactive S/CO (NonReactive)
[2018-09-15 15:17] LABS: HIV (1/2) Antibody/Antigen Non-Reactive (NonReactive); HIV 1/2 INDEX 0.09 S/CO (<1.00); Hep C IgG Ab Non-Reactive (NonReactive); Hep C Index 0.16 S/CO (0-0.79)
[2018-09-15] MEDS: HYDROcodone/Acetaminophen 5/325 mg Tablet PO PRN (20:29)
[2018-09-16] MEDS: Morphine 4 MG/ML VIAL SLOW IVP PRN ×2 (03:01→13:52)
[2018-09-16] MEDS: MEROPENEM 1 GM/50 ML 1 GM in Premix Bag 1 BAG IVPB SCH ×3 (05:10→22:33)
[2018-09-16] MEDS: Insulin Glargine 15 UNITS in Pre-Filled Syringe 1 EACH SC SCH ×2 (08:48→20:14)
[2018-09-16] MEDS: Atorvastatin Calcium 40 MG TAB PO SCH (08:49)
[2018-09-16] MEDS: HYDROcodone/Acetaminophen 5/325 mg Tablet PO PRN ×2 (08:49→18:53)
[2018-09-16] MEDS: FLUoxetine HCl 20 MG CAP PO SCH (08:50)
[2018-09-16] MEDS: Famotidine 20 MG TAB PO SCH ×2 (08:50→20:14)
[2018-09-16] MEDS: Clopidogrel Bisulfate 75 MG TAB PO SCH (08:50)
[2018-09-16] MEDS: Sacubitril 24.5 MG/Valsartan 25.5 MG TABLET PO SCH ×2 (08:51→20:13)
[2018-09-16] MEDS: Gabapentin 400 MG CAP PO SCH ×3 (08:51→20:13)
[2018-09-16] MEDS: Torsemide 20 MG TAB PO SCH (08:52)
[2018-09-16] MEDS: Polyethylene Glycol 3350 17 GM Packet PO PRN (08:58)
--- NOTE | 2018-09-16 10:57 | PDOC.PN ---
- Subjective Encounter Start Date: 09/16/18 Encounter Start Time: 10:15 Subjective: pain is better but still present -: has had discussions with her sister and father about possible amp -: no trouble breathing - Objective MAR Reviewed: Yes Vital Signs & Weight: Vital Signs (12 hours) Temp Pulse Resp BP Pulse Ox 09/16/18 08:00 97.9 F 70 18 165/71 H 93 L Weight Admit Weight 190 lb 5 oz Weight 190 lb 5 oz I&O: 09/15/18 09/16/18 09/17/18 06:59 06:59 06:59 Intake Total 1360 790 Balance 1360 790 Result Diagrams: 09/14/18 05:50 09/14/18 05:50 Additional Labs: Accuchecks 09/16/18 09/15/18 09/15/18 06:08 19:46 16:04 POC Glucose 87 199 H 133 H 09/15/18 10:59 POC Glucose 153 H Phys Exam - Physical Examination HEENT: PERRLA, moist MMs Neck: no JVD, supple Respiratory: no wheezing, no rales Cardiovascular: RRR, no significant murmur Gastrointestinal: soft, non-tender, positive bowel sounds Musculoskeletal: no edema, pulses present right foot in wound vac Neurological: non-focal, moves all 4 limbs Psychiatric: normal affect, A&O x 3 Dx/Plan (1) Diabetic infection of right foot Code(s): E11.628 - TYPE 2 DIABETES MELLITUS WITH OTHER SKIN COMPLICATIONS; L08.9 - LOCAL INFECTION OF THE SKIN AND SUBCUTANEOUS TISSUE, UNSP Status: Acute Comment: s/p I&D 09/12/18.Empiric ABx (2) Chronic systolic heart failure Code(s): I50.22 - CHRONIC SYSTOLIC (CONGESTIVE) HEART FAILURE Status: Chronic Comment: on entresto,Statin and demadex, ef of 30% (3) COPD (chronic obstructive pulmonary disease) Status: Chronic Qualifiers: COPD type: chronic bronchitis Chronic bronchitis type: unspecified Qualified Code(s): J42 - Unspecified chronic bronchitis (4) DM2 (diabetes mellitus, type 2) Status: Chronic Qualifiers: Diabetes mellitus penitentiary insulin use: with interpreter for the deaf use Diabetes mellitus complication detail: with chronic kidney disease Chronic kidney disease stage: stage 3 (moderate) (5) HLD (hyperlipidemia) Code(s): E78.5 - HYPERLIPIDEMIA, UNSPECIFIED Status: Chronic Qualifiers: Hyperlipidemia type: unspecified (6) HTN (hypertension) Code(s): I10 - ESSENTIAL (PRIMARY) HYPERTENSION Status: Chronic Qualifiers: (7) Nonischemic cardiomyopathy Code(s): I42.9 - CARDIOMYOPATHY, UNSPECIFIED Status: Chronic Comment: ef 30- 35% (8) Peripheral vascular disease Code(s): I73.9 - PERIPHERAL VASCULAR DISEASE, UNSPECIFIED Status: Chronic Comment: s/p R SFA angioplasty 08/25.on Plavix (9) Tobacco abuse Code(s): Z72.0 - TOBACCO USE Status: Chronic - Plan is on meropenem and vanc -: for debribement in am likely amp -: continue lantus, entresto, lipitor high dose, plavix -: morphine prn -: nebs prn * . Review of Systems - Medications/Allergies Allergies/Adverse Reactions: Allergies Allergy/AdvReac Type Severity Reaction Status Date / Time No Known Allergies Allergy Verified 11/29/16 23:41 Medications: Current Medications Hydrocodone Bitart/Acetaminophen ([place] 5/325) 2 tab PO Q4H PRN PRN Reason: Severe Pain (7-10) Last Admin: 09/16/18 08:49 Dose: 2 tab Hydrocodone Bitart/Acetaminophen ([place] 5/325) 1 tab PO Q4H PRN PRN Reason: Pain Last Admin: 09/12/18 21:22 Dose: 1 tab Atorvastatin Calcium (Lipitor) 80 mg PO DAILY [facility] Last Admin: 09/16/18 08:49 Dose: 80 mg Bisacodyl (Dulcolax) 10 mg PO DAILYPRN PRN PRN Reason: Constipation Clopidogrel Bisulfate (Plavix) 75 mg PO DAILY [facility] Last Admin: 09/16/18 08:50 Dose: 75 mg Dextrose/Water (Dextrose 50%) 25 gm SLOW IVP PRN PRN PRN Reason: Hypoglycemia Famotidine (Pepcid) 20 mg PO BID [facility] Last Admin: 09/16/18 08:50 Dose: 20 mg Fluoxetine HCl (Prozac) 40 mg PO DAILY [facility] Last Admin: 09/16/18 08:50 Dose: 40 mg Gabapentin (Neurontin) 400 mg PO TID [facility] Last Admin: 09/16/18 08:51 Dose: 400 mg Glucagon (Glucagon) 1 mg IM PRN PRN PRN Reason: Hypoglycemia Dextrose/Water (D5w) 1,000 mls @ 0 mls/hr IV .Q0M PRN PRN Reason: Hypoglycemia Meropenem 1 gm/ Device 50 mls @ 100 mls/hr IVPB Q8HR [facility] Last Admin: 09/16/18 05:10 Dose: 50 mls Insulin Glargine 15 units/ (Miscellaneous Medication) 0.15 mls @ 0 mls/hr SC BID [facility] Last Admin: 09/16/18 08:48 Dose: 0.15 mls Vancomycin HCl 750 mg/ Sodium (Chloride) 250 mls @ 250 mls/hr IVPB 1200 [facility] Insulin Human Lispro (Humalog) 0 units SC .MILD SLIDING SCALE PRN PRN Reason: Mild Correctional Scale Last Admin: 09/15/18 11:57 Dose: 2 unit Insulin Human Lispro (Humalog) 0 units SC .BEDTIME SLIDING SC PRN PRN Reason: Bedtime Correctional Scale Metolazone (Zaroxolyn) 5 mg PO Q7DAYS [facility] Miscellaneous Medication (Pharmacy To Dose) 1 each IVPB PRN PRN PRN Reason: Pharmacy to dose Morphine Sulfate (Morphine) 2 mg SLOW IVP Q4H PRN PRN Reason: Moderate Pain (4-6) Last Admin: 09/15/18 11:56 Dose: 2 mg Morphine Sulfate (Morphine) 4 mg SLOW IVP Q4H PRN PRN Reason: Severe Pain (7-10) Last Admin: 09/16/18 03:01 Dose: 4 mg Ondansetron HCl (Zofran Odt) 4 mg PO Q6H PRN PRN Reason: Nausea/Vomiting Ondansetron HCl (Zofran) 4 mg IVP Q6H PRN PRN Reason: Nausea/Vomiting Polyethylene Glycol (Miralax) 17 gm PO DAILY PRN PRN Reason: Constipation Last Admin: 09/16/18 08:58 Dose: 17 gm Sacubitril/Valsartan (Entresto 24.5 Mg-25.5 Mg Tablet) 1 tab PO BID [facility] Last Admin: 09/16/18 08:51 Dose: 1 tab Senna/Docusate Sodium (Senokot S) 2 tab PO BID PRN PRN Reason: Constipation Sodium Chloride (Flush - Normal Saline) 10 ml IVF Q12HR [facility] Last Admin: 09/16/18 08:52 Dose: 10 ml Sodium Chloride (Flush - Normal Saline) 10 ml IVF PRN PRN PRN Reason: Saline Flush Last Admin: 09/13/18 06:25 Dose: 10 ml Torsemide (Demadex) 40 mg PO DAILY [facility] Last Admin: 09/16/18 08:52 Dose: 40 mg Trazodone HCl (Desyrel) 100 mg PO HS PRN PRN Reason: Insomnia
[2018-09-16] MEDS: Vancomycin HCl 750 MG in Sodium Chloride 0.9% 250 ML 250 ML IVPB SCH (12:36)
[2018-09-16] MEDS: traZODone HCl 50 MG TAB PO PRN (20:16)
[2018-09-17] MEDS: MEROPENEM 1 GM/50 ML 1 GM in Premix Bag 1 BAG IVPB SCH ×3 (05:12→23:09)
[2018-09-17] MEDS: Clopidogrel Bisulfate 75 MG TAB PO SCH ×2 (07:30→08:18)
[2018-09-17] MEDS: HYDROcodone/Acetaminophen 5/325 mg Tablet PO PRN ×3 (08:23→19:40)
[2018-09-17] MEDS: Gabapentin 400 MG CAP PO SCH ×3 (08:24→20:40)
[2018-09-17] MEDS: Torsemide 20 MG TAB PO SCH (08:24)
[2018-09-17] MEDS: Insulin Glargine 15 UNITS in Pre-Filled Syringe 1 EACH SC SCH ×2 (08:24→20:39)
[2018-09-17] MEDS: Sacubitril 24.5 MG/Valsartan 25.5 MG TABLET PO SCH ×2 (08:24→20:40)
[2018-09-17] MEDS: Atorvastatin Calcium 40 MG TAB PO SCH (08:25)
[2018-09-17] MEDS: FLUoxetine HCl 20 MG CAP PO SCH (08:25)
[2018-09-17] MEDS: Famotidine 20 MG TAB PO SCH ×2 (08:25→20:40)
--- NOTE | 2018-09-17 10:11 | PDOC.PN ---
- Subjective Encounter Start Date: 09/17/18 Encounter Start Time: 09:15 Subjective: no sob, feels better -: met this am, is for med mgmt, no amp - Objective MAR Reviewed: Yes Vital Signs & Weight: Vital Signs (12 hours) Temp Pulse Resp BP Pulse Ox 09/17/18 08:00 97.3 F L 71 18 210/81 H 93 L Weight Admit Weight 190 lb 5 oz Weight 190 lb 5 oz I&O: 09/16/18 09/17/18 09/18/18 06:59 06:59 06:59 Intake Total 790 1590 Balance 790 1590 Result Diagrams: 09/14/18 05:50 09/14/18 05:50 Additional Labs: Accuchecks 09/17/18 09/16/18 09/16/18 05:35 20:08 15:43 POC Glucose 126 H 190 H 149 H 09/16/18 12:30 POC Glucose 170 H Phys Exam - Physical Examination HEENT: PERRLA, moist MMs Neck: no JVD, supple Respiratory: no wheezing, no rales Cardiovascular: RRR, no significant murmur Gastrointestinal: soft, non-tender, positive bowel sounds Musculoskeletal: pulses present right foot in wound vac Neurological: non-focal, moves all 4 limbs Psychiatric: normal affect, A&O x 3 Dx/Plan (1) Diabetic infection of right foot Code(s): E11.628 - TYPE 2 DIABETES MELLITUS WITH OTHER SKIN COMPLICATIONS; L08.9 - LOCAL INFECTION OF THE SKIN AND SUBCUTANEOUS TISSUE, UNSP Status: Acute Comment: s/p I&D 09/12/18.Empiric ABx (2) Chronic systolic heart failure Code(s): I50.22 - CHRONIC SYSTOLIC (CONGESTIVE) HEART FAILURE Status: Chronic Comment: on entresto,Statin and demadex, ef of 30% (3) COPD (chronic obstructive pulmonary disease) Status: Chronic Qualifiers: COPD type: chronic bronchitis Chronic bronchitis type: unspecified Qualified Code(s): J42 - Unspecified chronic bronchitis (4) DM2 (diabetes mellitus, type 2) Status: Chronic Qualifiers: Diabetes mellitus long-term insulin use: with moth exterminator use Diabetes mellitus complication detail: with chronic kidney disease Chronic kidney disease stage: stage 3 (moderate) (5) HLD (hyperlipidemia) Code(s): E78.5 - HYPERLIPIDEMIA, UNSPECIFIED Status: Chronic Qualifiers: Hyperlipidemia type: unspecified (6) HTN (hypertension) Code(s): I10 - ESSENTIAL (PRIMARY) HYPERTENSION Status: Chronic Qualifiers: (7) Nonischemic cardiomyopathy Code(s): I42.9 - CARDIOMYOPATHY, UNSPECIFIED Status: Chronic Comment: ef 30- 35% (8) Peripheral vascular disease Code(s): I73.9 - PERIPHERAL VASCULAR DISEASE, UNSPECIFIED Status: Chronic Comment: s/p R SFA angioplasty 08/25.on Plavix (9) Tobacco abuse Code(s): Z72.0 - TOBACCO USE Status: Chronic - Plan is on meropenem and vanc, duration per 's adv -: dc plan per -: continue lipitor, plavix, lantus, entresto -: morphine prn -: likely will need [facility] bed * . Review of Systems - Medications/Allergies Allergies/Adverse Reactions: Allergies Allergy/AdvReac Type Severity Reaction Status Date / Time No Known Allergies Allergy Verified 11/29/16 23:41 Medications: Current Medications Hydrocodone Bitart/Acetaminophen ([place] 5/325) 2 tab PO Q4H PRN PRN Reason: Severe Pain (7-10) Last Admin: 09/17/18 08:23 Dose: 2 tab Hydrocodone Bitart/Acetaminophen ([place] 5/325) 1 tab PO Q4H PRN PRN Reason: Pain Last Admin: 09/12/18 21:22 Dose: 1 tab Atorvastatin Calcium (Lipitor) 80 mg PO DAILY [facility] Last Admin: 09/17/18 08:25 Dose: 80 mg Bisacodyl (Dulcolax) 10 mg PO DAILYPRN PRN PRN Reason: Constipation Clopidogrel Bisulfate (Plavix) 75 mg PO DAILY [facility] Last Admin: 09/17/18 08:18 Dose: Not Given Dextrose/Water (Dextrose 50%) 25 gm SLOW IVP PRN PRN PRN Reason: Hypoglycemia Famotidine (Pepcid) 20 mg PO BID [facility] Last Admin: 09/17/18 08:25 Dose: 20 mg Fluoxetine HCl (Prozac) 40 mg PO DAILY [facility] Last Admin: 09/17/18 08:25 Dose: 40 mg Gabapentin (Neurontin) 400 mg PO TID [facility] Last Admin: 09/17/18 08:24 Dose: 400 mg Glucagon (Glucagon) 1 mg IM PRN PRN PRN Reason: Hypoglycemia Dextrose/Water (D5w) 1,000 mls @ 0 mls/hr IV .Q0M PRN PRN Reason: Hypoglycemia Meropenem 1 gm/ Device 50 mls @ 100 mls/hr IVPB Q8HR [facility] Last Admin: 09/17/18 05:12 Dose: 50 mls Insulin Glargine 15 units/ (Miscellaneous Medication) 0.15 mls @ 0 mls/hr SC BID [facility] Last Admin: 09/17/18 08:24 Dose: 0.15 mls Vancomycin HCl 750 mg/ Sodium (Chloride) 250 mls @ 250 mls/hr IVPB 1200 [facility] Last Admin: 09/16/18 12:36 Dose: 250 mls Insulin Human Lispro (Humalog) 0 units SC .MILD SLIDING SCALE PRN PRN Reason: Mild Correctional Scale Last Admin: 09/15/18 11:57 Dose: 2 unit Insulin Human Lispro (Humalog) 0 units SC .BEDTIME SLIDING SC PRN PRN Reason: Bedtime Correctional Scale Metolazone (Zaroxolyn) 5 mg PO Q7DAYS [facility] Miscellaneous Medication (Pharmacy To Dose) 1 each IVPB PRN PRN PRN Reason: Pharmacy to dose Morphine Sulfate (Morphine) 2 mg SLOW IVP Q4H PRN PRN Reason: Moderate Pain (4-6) Last Admin: 09/15/18 11:56 Dose: 2 mg Morphine Sulfate (Morphine) 4 mg SLOW IVP Q4H PRN PRN Reason: Severe Pain (7-10) Last Admin: 09/16/18 13:52 Dose: 4 mg Ondansetron HCl (Zofran Odt) 4 mg PO Q6H PRN PRN Reason: Nausea/Vomiting Ondansetron HCl (Zofran) 4 mg IVP Q6H PRN PRN Reason: Nausea/Vomiting Polyethylene Glycol (Miralax) 17 gm PO DAILY PRN PRN Reason: Constipation Last Admin: 09/16/18 08:58 Dose: 17 gm Sacubitril/Valsartan (Entresto 24.5 Mg-25.5 Mg Tablet) 1 tab PO BID [facility] Last Admin: 09/17/18 08:24 Dose: 1 tab Senna/Docusate Sodium (Senokot S) 2 tab PO BID PRN PRN Reason: Constipation Sodium Chloride (Flush - Normal Saline) 10 ml IVF Q12HR [facility] Last Admin: 09/16/18 20:15 Dose: 10 ml Sodium Chloride (Flush - Normal Saline) 10 ml IVF PRN PRN PRN Reason: Saline Flush Last Admin: 09/13/18 06:25 Dose: 10 ml Torsemide (Demadex) 40 mg PO DAILY [facility] Last Admin: 09/17/18 08:24 Dose: 40 mg Trazodone HCl (Desyrel) 100 mg PO HS PRN PRN Reason: Insomnia Last Admin: 09/16/18 20:16 Dose: 100 mg
[2018-09-17] MEDS: Vancomycin HCl 750 MG in Sodium Chloride 0.9% 250 ML 250 ML IVPB SCH (12:33)
[2018-09-17] MEDS: traZODone HCl 50 MG TAB PO PRN (23:09)
[2018-09-17] MEDS: Morphine 4 MG/ML VIAL SLOW IVP PRN (23:09)
[2018-09-18] MEDS: MEROPENEM 1 GM/50 ML 1 GM in Premix Bag 1 BAG IVPB SCH ×3 (05:01→21:05)
[2018-09-18] MEDS: HYDROcodone/Acetaminophen 5/325 mg Tablet PO PRN ×2 (05:03→20:45)
[2018-09-18] MEDS ORDERED: Metolazone 5 MG TAB PO SCH (09:00)
[2018-09-18] MEDS: Clopidogrel Bisulfate 75 MG TAB PO SCH (09:43)
[2018-09-18] MEDS: Atorvastatin Calcium 40 MG TAB PO SCH (09:43)
[2018-09-18] MEDS: Gabapentin 400 MG CAP PO SCH ×3 (09:44→20:42)
[2018-09-18] MEDS: Famotidine 20 MG TAB PO SCH ×2 (09:44→20:42)
[2018-09-18] MEDS: Insulin Glargine 15 UNITS in Pre-Filled Syringe 1 EACH SC SCH ×2 (09:44→20:42)
[2018-09-18] MEDS: FLUoxetine HCl 20 MG CAP PO SCH (09:44)
[2018-09-18] MEDS: Torsemide 20 MG TAB PO SCH (09:45)
[2018-09-18] MEDS: Sacubitril 24.5 MG/Valsartan 25.5 MG TABLET PO SCH ×2 (09:46→20:42)
--- NOTE | 2018-09-18 12:02 | PDOC.GSPN ---
Surgery Progress Note: Subj - Subjective Narrative: Outpatient with wound care team yesterday. The wound actually looks much better with granulation tissue forming an better blood flow. The surrounding tissues appear viable although she will lose some epidermis where she had the blistering. She is still having pain in her foot that is less than before and she really feels like it is just coming from the wound not from the remainder of the foot. We are going to continue with wound care and antibiotics and attempts at foot salvage. From a surgical standpoint she is stable for transfer to [place]. I would like to see her back in a week or [address] check[address] Per Dr. Mariano's note she will need IV antibiotics through October 24. Surgery Progress Note: Obj - Vital signs Vital signs: Vital Signs - Most Recent Temp Pulse Resp BP Pulse Ox 96.5 F L 59 L 16 132/63 92 L 09/18/18 08:00 09/18/18 08:00 09/18/18 08:00 09/18/18 08:00 09/18/18 08:00 Surgery Progress Note: Results - Labs Result Diagrams: 09/14/18 05:50 09/14/18 05:50 Lab results: Laboratory Results - last 24 hr 09/18/18 05:02 POC Glucose 90
[2018-09-18] MEDS: Vancomycin HCl 750 MG in Sodium Chloride 0.9% 250 ML 250 ML IVPB SCH (13:19)
--- NOTE | 2018-09-18 16:41 | PRG ---
DATE OF SERVICE: 09/18/2018 SUBJECTIVE: The patient denies any headaches. No shortness of breath or cough. No abdominal pain. Voiding without difficulty. OBJECTIVE: VITAL SIGNS: Essentially normal. GENERAL: Awake, alert, oriented, no distress. LUNGS: Clear. HEART: S1, S2. Regular rate. ABDOMEN: Soft, not distended. The wound will be reviewed tomorrow. She still has a wound negative pressure dressing in place. LABORATORY DATA: Cultures again final results with MRSA and Pseudomonas aeruginosa. White cell count 9.2, hemoglobin 9.5, platelets 336, and chemistry with a creatinine of 1.35. GFR is estimated at 41, last one. ASSESSMENT AND DISCUSSION: Type 2 diabetes, ischemic cardiomyopathy, prior bypass graft surgery, peripheral vascular disease with previous left femoral-popliteal bypass and now more recent right SFA angioplasty and also osteomyelitis right fifth toe status post ray amputation with recrudescence of inflammatory change. The patient to continue on IV meropenem and vancomycin current doses. The end date of therapy will be 10/24. Weekly labs including CBC, CRP, vanc troughs, comprehensive metabolic panel. Job ID: [id number]
[2018-09-18] MEDS: Polyethylene Glycol 3350 17 GM Packet PO PRN (18:03)
[2018-09-18] MEDS: Morphine 4 MG/ML VIAL SLOW IVP PRN (18:03)
[2018-09-18] MEDS: traZODone HCl 50 MG TAB PO PRN (20:45)
[2018-09-19] MEDS: MEROPENEM 1 GM/50 ML 1 GM in Premix Bag 1 BAG IVPB SCH ×2 (05:38→15:21)
[2018-09-19 07:50] LABS: ALT (SGPT) 15 U/L (8-55); AST (SGOT) 20 U/L (5-34); Alkaline Phosphatase 104 U/L (40-150); Anion Gap 13 mmol/L (10-20); BUN (Urea Nitrogen) 34 mg/dL (9.8-20.1); Bilirubin, Total 0.2 mg/dL (0.2-1.2); Calc. Creatinine Clearance 69 mL/min (70-130); Carbon Dioxide 32 mmol/L (22-29); Chloride 97 mmol/L (98-107); Estimated GFR-MDRD 44; Glucose 84 mg/dL (70-105); Potassium 3.6 mmol/L (3.5-5.1); Sodium 138 mmol/L (136-145)
[2018-09-19 08:09] LABS: Hemoglobin 9.7 g/dL (12.0-16.0); Mean Corpuscular HGB CONC 32.1 g/dL (32.0-36.0); Mean Corpuscular Volume 96.6 fL (78.0-98.0); Mean Platelet Volume 7.4 fL (7.4-10.4); Platelet Count 318 thou/uL (130-400); RBC Distribution Width 11.8 % (11.5-14.5); Red Blood Cell (RBC) Count 3.14 mill/uL (4.20-5.40); White Blood Cell (WBC) Count 7.1 thou/uL (4.8-10.8)
[2018-09-19 09:02] VITALS: BP 129/67; TEMP 97.3
[2018-09-19] MEDS: Clopidogrel Bisulfate 75 MG TAB PO SCH (09:40)
[2018-09-19] MEDS: Sacubitril 24.5 MG/Valsartan 25.5 MG TABLET PO SCH (09:40)
[2018-09-19] MEDS: FLUoxetine HCl 20 MG CAP PO SCH (09:40)
[2018-09-19] MEDS: Famotidine 20 MG TAB PO SCH (09:40)
[2018-09-19] MEDS: Gabapentin 400 MG CAP PO SCH ×2 (09:40→14:20)
[2018-09-19] MEDS: Atorvastatin Calcium 40 MG TAB PO SCH (09:40)
[2018-09-19] MEDS: Torsemide 20 MG TAB PO SCH (09:40)
[2018-09-19] MEDS: Insulin Glargine 15 UNITS in Pre-Filled Syringe 1 EACH SC SCH (09:41)
[2018-09-19 10:17] LABS: Band 2 % (5-11); Eosinophils 1 % (0-10); Lymphocytes 32 % (21-51); MDiff Complete? YES; Monocytes 9 % (0-10); Neutrophil 56 % (42-75); Platelet Morphology Comment Appears Adequate; Polychromasia SLIGHT = 2-3 cells (100X) (0-2/hpf)
[2018-09-19] MEDS: Morphine 4 MG/ML VIAL SLOW IVP PRN (10:56)
--- NOTE | 2018-09-19 11:24 | PDOC.PN ---
- Subjective Encounter Start Date: 09/19/18 Encounter Start Time: 09:15 Subjective: feels better, is resting -: no sob, pain is better - Objective MAR Reviewed: Yes Vital Signs & Weight: Vital Signs (12 hours) Temp Pulse Resp BP Pulse Ox 09/19/18 08:00 97.3 F L 71 18 129/67 95 Weight Admit Weight 190 lb 5 oz Weight 190 lb 5 oz I&O: 09/18/18 09/19/18 09/20/18 06:59 06:59 06:59 Intake Total 1060 Balance 1060 Result Diagrams: 09/19/18 07:24 09/19/18 07:24 Additional Labs: Accuchecks 09/19/18 09/18/18 09/18/18 05:43 20:42 15:56 POC Glucose 79 150 H 124 H 09/18/18 12:25 POC Glucose 128 H Phys Exam - Physical Examination HEENT: PERRLA, moist MMs Neck: no JVD, supple Respiratory: no wheezing, no rales Cardiovascular: RRR, no significant murmur Gastrointestinal: soft, non-tender, positive bowel sounds Musculoskeletal: pulses present right foot in dressing and wound vac Neurological: non-focal, moves all 4 limbs Psychiatric: normal affect, A&O x 3 Dx/Plan (1) Diabetic infection of right foot Code(s): E11.628 - TYPE 2 DIABETES MELLITUS WITH OTHER SKIN COMPLICATIONS; L08.9 - LOCAL INFECTION OF THE SKIN AND SUBCUTANEOUS TISSUE, UNSP Status: Acute Comment: s/p I&D 09/12/18.Empiric ABx (2) Chronic systolic heart failure Code(s): I50.22 - CHRONIC SYSTOLIC (CONGESTIVE) HEART FAILURE Status: Chronic Comment: on entresto,Statin and demadex, ef of 30% (3) COPD (chronic obstructive pulmonary disease) Status: Chronic Qualifiers: COPD type: chronic bronchitis Chronic bronchitis type: unspecified Qualified Code(s): J42 - Unspecified chronic bronchitis (4) DM2 (diabetes mellitus, type 2) Status: Chronic Qualifiers: Diabetes mellitus intermediate teacher insulin use: with intermediate teacher use Diabetes mellitus complication detail: with chronic kidney disease Chronic kidney disease stage: stage 3 (moderate) (5) HLD (hyperlipidemia) Code(s): E78.5 - HYPERLIPIDEMIA, UNSPECIFIED Status: Chronic Qualifiers: Hyperlipidemia type: unspecified (6) HTN (hypertension) Code(s): I10 - ESSENTIAL (PRIMARY) HYPERTENSION Status: Chronic Qualifiers: (7) Nonischemic cardiomyopathy Code(s): I42.9 - CARDIOMYOPATHY, UNSPECIFIED Status: Chronic Comment: ef 30- 35% (8) Peripheral vascular disease Code(s): I73.9 - PERIPHERAL VASCULAR DISEASE, UNSPECIFIED Status: Chronic Comment: s/p R SFA angioplasty 08/25.on Plavix (9) Tobacco abuse Code(s): Z72.0 - TOBACCO USE Status: Chronic - Plan may dc anytime if placement is ready -: is on meropenem and vanc, to continue till 10/24 -: continue lipitor, plavix, entresto and lantus -: home dose diuretics * . Review of Systems - Medications/Allergies Allergies/Adverse Reactions: Allergies Allergy/AdvReac Type Severity Reaction Status Date / Time No Known Allergies Allergy Verified 11/29/16 23:41 Medications: Current Medications Hydrocodone Bitart/Acetaminophen ([place] 5/325) 2 tab PO Q4H PRN PRN Reason: Severe Pain (7-10) Last Admin: 09/17/18 19:40 Dose: 2 tab Hydrocodone Bitart/Acetaminophen ([place] 5/325) 1 tab PO Q4H PRN PRN Reason: Pain Last Admin: 09/18/18 20:45 Dose: 1 tab Atorvastatin Calcium (Lipitor) 80 mg PO DAILY [facility] Last Admin: 09/19/18 09:40 Dose: 80 mg Bisacodyl (Dulcolax) 10 mg PO DAILYPRN PRN PRN Reason: Constipation Clopidogrel Bisulfate (Plavix) 75 mg PO DAILY [facility] Last Admin: 09/19/18 09:40 Dose: 75 mg Dextrose/Water (Dextrose 50%) 25 gm SLOW IVP PRN PRN PRN Reason: Hypoglycemia Famotidine (Pepcid) 20 mg PO BID [facility] Last Admin: 09/19/18 09:40 Dose: 20 mg Fluoxetine HCl (Prozac) 40 mg PO DAILY [facility] Last Admin: 09/19/18 09:40 Dose: 40 mg Gabapentin (Neurontin) 400 mg PO TID [facility] Last Admin: 09/19/18 09:40 Dose: 400 mg Glucagon (Glucagon) 1 mg IM PRN PRN PRN Reason: Hypoglycemia Dextrose/Water (D5w) 1,000 mls @ 0 mls/hr IV .Q0M PRN PRN Reason: Hypoglycemia Meropenem 1 gm/ Device 50 mls @ 100 mls/hr IVPB Q8HR [facility] Last Admin: 09/19/18 05:38 Dose: 50 mls Insulin Glargine 15 units/ (Miscellaneous Medication) 0.15 mls @ 0 mls/hr SC BID [facility] Last Admin: 09/19/18 09:41 Dose: 0.15 mls Vancomycin HCl 750 mg/ Sodium (Chloride) 250 mls @ 250 mls/hr IVPB 1200 [facility] Last Admin: 09/18/18 13:19 Dose: 250 mls Insulin Human Lispro (Humalog) 0 units SC .MILD SLIDING SCALE PRN PRN Reason: Mild Correctional Scale Last Admin: 09/15/18 11:57 Dose: 2 unit Insulin Human Lispro (Humalog) 0 units SC .BEDTIME SLIDING SC PRN PRN Reason: Bedtime Correctional Scale Metolazone (Zaroxolyn) 5 mg PO Q7DAYS [facility] Last Admin: 09/18/18 09:45 Dose: 5 mg Miscellaneous Medication (Pharmacy To Dose) 1 each IVPB PRN PRN PRN Reason: Pharmacy to dose Morphine Sulfate (Morphine) 2 mg SLOW IVP Q4H PRN PRN Reason: Moderate Pain (4-6) Last Admin: 09/15/18 11:56 Dose: 2 mg Morphine Sulfate (Morphine) 4 mg SLOW IVP Q4H PRN PRN Reason: Severe Pain (7-10) Last Admin: 09/19/18 10:56 Dose: 4 mg Ondansetron HCl (Zofran Odt) 4 mg PO Q6H PRN PRN Reason: Nausea/Vomiting Ondansetron HCl (Zofran) 4 mg IVP Q6H PRN PRN Reason: Nausea/Vomiting Polyethylene Glycol (Miralax) 17 gm PO DAILY PRN PRN Reason: Constipation Last Admin: 09/18/18 18:03 Dose: 17 gm Sacubitril/Valsartan (Entresto 24.5 Mg-25.5 Mg Tablet) 1 tab PO BID [facility] Last Admin: 09/19/18 09:40 Dose: 1 tab Senna/Docusate Sodium (Senokot S) 2 tab PO BID PRN PRN Reason: Constipation Sodium Chloride (Flush - Normal Saline) 10 ml IVF Q12HR [facility] Last Admin: 09/19/18 09:41 Dose: 10 ml Sodium Chloride (Flush - Normal Saline) 10 ml IVF PRN PRN PRN Reason: Saline Flush Last Admin: 09/13/18 06:25 Dose: 10 ml Torsemide (Demadex) 40 mg PO DAILY [facility] Last Admin: 09/19/18 09:40 Dose: 40 mg Trazodone HCl (Desyrel) 100 mg PO HS PRN PRN Reason: Insomnia Last Admin: 09/18/18 20:45 Dose: 100 mg
[2018-09-19] MEDS: Vancomycin HCl 750 MG in Sodium Chloride 0.9% 250 ML 250 ML IVPB SCH (11:44)
[2018-09-19] MEDS: HYDROcodone/Acetaminophen 5/325 mg Tablet PO PRN (14:12)
--- NOTE | 2018-09-19 14:56 | PDOC.GSPN ---
Surgery Progress Note: Subj - Subjective Narrative: As the patient's wound with the wound care team today. It appears to be clean and granulating. No further debridement was necessary of the wound. She did have some peeling skin which was trimmed back but the dermis is completely healthy and viable. She is stable for transfer from a surgical standpoint. I would like to see her in 1-2 weeks in the wound care center. Surgery Progress Note: Obj - Vital signs Vital signs: Vital Signs - Most Recent Temp Pulse Resp BP Pulse Ox 97.3 F L 71 18 129/67 95 09/19/18 08:00 09/19/18 08:00 09/19/18 08:00 09/19/18 08:00 09/19/18 08:00 Surgery Progress Note: Results - Labs Result Diagrams: 09/19/18 07:24 09/19/18 07:24 Lab results: Laboratory Results - last 24 hr 09/19/18 09/19/18 09/19/18 05:43 07:24 07:24 WBC 7.1 RBC 3.14 L Hgb 9.7 L Hct 30.3 L MCV 96.6 MCH 31.0 MCHC 32.1 RDW 11.8 Plt Count 318 MPV 7.4 Neutrophils % (Manual) 56 Band Neuts % (Manual) 2 L Lymphocytes % (Manual) 32 Monocytes % (Manual) 9 Eosinophils % (Manual) 1 Neutrophils # Not Reportable Lymphocytes # Not Reportable Plt Morphology Comment Appears Adequate Polychromasia SLIGHT = 2-3 cells Sodium 138 Potassium 3.6 Chloride 97 L Carbon Dioxide 32 H Anion Gap 13 BUN 34 H Creatinine 1.28 H Estimated GFR (MDRD) 44 Glucose 84 POC Glucose 79 Calcium 9.0 Total Bilirubin 0.2 AST 20 ALT 15 Alkaline Phosphatase 104 Serum Total Protein 6.0 Albumin 3.0 L Globulin 3.0 Albumin/Globulin Ratio 1.0 L 09/19/18 11:13 WBC RBC Hgb Hct MCV MCH MCHC RDW Plt Count MPV Neutrophils % (Manual) Band Neuts % (Manual) Lymphocytes % (Manual) Monocytes % (Manual) Eosinophils % (Manual) Neutrophils # Lymphocytes # Plt Morphology Comment Polychromasia Sodium Potassium Chloride Carbon Dioxide Anion Gap BUN Creatinine Estimated GFR (MDRD) Glucose POC Glucose 98 Calcium Total Bilirubin AST ALT Alkaline Phosphatase Serum Total Protein Albumin Globulin Albumin/Globulin Ratio
--- NOTE | 2018-09-19 16:01 | PDOC.PN ---
- Subjective Encounter Start Date: 09/18/18 Encounter Start Time: 15:15 Subjective: no sob, pain is better - Objective MAR Reviewed: Yes Vital Signs & Weight: Vital Signs (12 hours) Temp Pulse Resp BP Pulse Ox 09/19/18 08:00 97.3 F L 71 18 129/67 95 Weight Admit Weight 190 lb 5 oz Weight 190 lb 5 oz I&O: 09/18/18 09/19/18 09/20/18 06:59 06:59 06:59 Intake Total 1060 Balance 1060 Result Diagrams: 09/19/18 07:24 09/19/18 07:24 Additional Labs: Accuchecks 09/19/18 09/19/18 09/18/18 11:13 05:43 20:42 POC Glucose 98 79 150 H 09/18/18 15:56 POC Glucose 124 H Phys Exam - Physical Examination HEENT: PERRLA, moist MMs Neck: no JVD, supple Respiratory: no wheezing, no rales Cardiovascular: RRR, no significant murmur Gastrointestinal: soft, non-tender, positive bowel sounds Musculoskeletal: no edema, pulses present right foot in dressing and wound vac Neurological: non-focal, moves all 4 limbs Psychiatric: normal affect, A&O x 3 Dx/Plan (1) Diabetic infection of right foot Code(s): E11.628 - TYPE 2 DIABETES MELLITUS WITH OTHER SKIN COMPLICATIONS; L08.9 - LOCAL INFECTION OF THE SKIN AND SUBCUTANEOUS TISSUE, UNSP Status: Acute Comment: s/p I&D 09/12/18.Empiric ABx (2) Chronic systolic heart failure Code(s): I50.22 - CHRONIC SYSTOLIC (CONGESTIVE) HEART FAILURE Status: Chronic Comment: on entresto,Statin and demadex, ef of 30% (3) COPD (chronic obstructive pulmonary disease) Status: Chronic Qualifiers: COPD type: chronic bronchitis Chronic bronchitis type: unspecified Qualified Code(s): J42 - Unspecified chronic bronchitis (4) DM2 (diabetes mellitus, type 2) Status: Chronic Qualifiers: Diabetes mellitus mcc insulin use: with exterminator helper use Diabetes mellitus complication detail: with chronic kidney disease Chronic kidney disease stage: stage 3 (moderate) (5) HLD (hyperlipidemia) Code(s): E78.5 - HYPERLIPIDEMIA, UNSPECIFIED Status: Chronic Qualifiers: Hyperlipidemia type: unspecified (6) HTN (hypertension) Code(s): I10 - ESSENTIAL (PRIMARY) HYPERTENSION Status: Chronic Qualifiers: (7) Nonischemic cardiomyopathy Code(s): I42.9 - CARDIOMYOPATHY, UNSPECIFIED Status: Chronic Comment: ef 30- 35% (8) Peripheral vascular disease Code(s): I73.9 - PERIPHERAL VASCULAR DISEASE, UNSPECIFIED Status: Chronic Comment: s/p R SFA angioplasty 08/25.on Plavix (9) Tobacco abuse Code(s): Z72.0 - TOBACCO USE Status: Chronic - Plan is on meropenem and vanc -: d/w will help with dc antibiotic regimen and duration -: awaiting placement -: continue entresto, lantus, lipitor, plavix and morphine prn -: hemostable, needs to amb more, is moving some in the room * .
--- NOTE | 2018-09-20 14:15 | DIS ---
DATE OF ADMISSION: 09/10/2018 DATE OF DISCHARGE: 09/19/2018 DISCHARGE DISPOSITION: [facility]. PRIMARY DISCHARGE DIAGNOSIS: Right foot diabetic ulcer status post multiple debridements. SECONDARY DISCHARGE DIAGNOSES: History of congestive heart failure with systolic dysfunction and ejection fraction of around 30%, chronic obstructive pulmonary disease, diabetes mellitus type 2, dyslipidemia, hypertension, history of nonischemic cardiomyopathy, peripheral vascular disease, tobacco abuse. PROCEDURES DONE DURING HOSPITALIZATION: Right foot 3-view x-ray done on the day of admission showed postsurgical changes distal to the right fifth metatarsal. Blood cultures x2, no growth. H and H 9 and 30, platelet count 318. Sedimentation rate was 96. Discharge BUN and creatinine are 34 and 1.2. Albumin is 3.0. CRP was 7.28 on the day of admission. Initial BUN and creatinine were 50 and 1.6. Vancomycin trough levels were 14 on the . HBS antigen nonreactive. Hep C antibody nonreactive. HIV 1 and 2 nonreactive. INPATIENT CONSULT: Dr. Mariano for Infectious Disease, Dr. Gill for General Surgery. DISCHARGE MEDICATIONS: 1. Atorvastatin 80 mg p.o. daily. 2. Plavix 75 mg p.o. daily. 3. Prozac 40 mg p.o. daily. 4. Gabapentin 400 mg p.o. 3 times daily. 5. Metolazone 5 mg p.o. once a week. 6. Torsemide 40 mg daily. 7. Entresto 24/26 mg one tab p.o. twice daily. 8. [place] p.r.n. for pain. 9. Lantus 15 units subcu twice daily. 10. DuoNeb's q.i.d. 11. Meropenem 1 g q.8 hourly, end date of treatment is 10/24/2018. 12. Vancomycin 750 mg daily, the end date for treatment is 10/24/2018. 13. Trazodone 100 mg p.o. at bedtime. 14. Florastor 250 mg p.o. daily. ALLERGIES: NO KNOWN DRUG ALLERGIES. DISCHARGE PLAN: The patient to follow up with Dr. Mariano and Dr. Gill as advised. She needs weekly CBC, CMP, sedimentation rate, and CRP levels drawn and the results faxed to Dr. Mariano' office. BRIEF COURSE DURING HOSPITALIZATION: The patient initially got admitted on the 5th with ulceration and wounds over the right foot. The patient has had consultation with Dr. Gill. Her wound was debrided and a wound VAC was placed. She was placed on broad-spectrum antibiotics based on prior cultures, which had grown Pseudomonas resistant to quinolones. The patient has had multiple debridements done at bedside with wound care. The plan was to go for either amputation versus conservative therapy with close monitoring. In view of the patient's wound improving with current antibiotics and wound care, a trial of antibiotics has been suggested with close monitoring with Dr. Gill. In view of deconditioning, she is being discharged to [facility]. She needs to continue antibiotics till the 24 of October. She has been cleared for discharge by Dr. Gill. Antibiotics have been prescribed by Dr. Mariano. A total of 35 minutes was spent on discharge plan. Please see a [id number] documentation for the day of discharge on [email or web address]. Job ID: [id number] MTDD
--- NOTE | 2018-09-21 17:12 | PDOC.OP ---
Operative Note - Operative Note Operative Note: PROCEDURE: Right foot debridement DATE OF PROCEDURE: 09/12/28 SURGEON: Dania Gill M.D. PREOPERATIVE DIAGNOSES: Diabetic foot infection with underlying peripheral vascular disease POSTOPERATIVE DIAGNOSIS: Diabetic foot infection with underlying peripheral vascular disease HISTORY: Patient is status post right toe amputation with postoperative evidence of ischemia of the forefoot. She underwent angioplasty of her right superficial femoral artery with improved blood flow but continues to have nonviable-appearing tissue in the wound. Recommendation was made to proceed to the operating room for debridement and possible amputation if healthy tissues are not encountered. PROCEDURE IN DETAIL: After informed consent was obtained and appropriate preoperative antibiotics continued the patient was taken to the operating room where she is placed in supine position and anesthesia was administered. She was prepped and draped in standard sterile fashion and the wound irrigated and examined. There was some nonviable skin and subcutaneous tissues which was trimmed back to bleeding healthy appearing tissues. Use of electrocautery was avoided due to the patient's tenuous vascular supply, and bleeding points in the wound were controlled with hemostatic agents and pressure. The underlying tissues appeared viable and the depth of necrosis of the surface tissues was shallow, so the decision was made to place a VAC dressing and reexamine the wound at the bedside at the next dressing change to assess viability. The wound care team was called to the room to place a VAC dressing, after which the patient was taken to recovery in good condition. Estimated blood loss is minimal. There were no complications. There were no specimens.
--- NOTE | 2018-09-24 07:15 | PQF ---
CHELSEY HURD KIMIYE MD [id number] CLINICAL DOCUMENTATION CLARIFICATION FORM: POST DISCHARGE Addendum to original discharge summary date: ____ Late entry note date: __ DATE: 09/24/18 ATTN: Dr. Gill, Please exercise your independent, professional judgment in responding to the clarification form. Clinical indicators are provided on the bottom of this form for your review Please check appropriate box(s): [ ] Excisional Debridement: [ ] Excised [ ] Cut away [ ] Other: Depth / layer: (deepest layer of debridement): [ ] Skin [ ] SubQ Tissue [ ] Fascia [ ] Muscle [ ] Tendon [ ] Bone Appearance of wound: (e.g., down to fresh bleeding tissue, etc.)___ Margins: (please specify): / x x Instruments used: [ ] Scissors [ ] Scalpel [ ] Curette [ ] Soft tissue clipper [ ] Other: [ ] Non-excisional Debridement: (Removal by flushing, brushing, chemical, or washing) Depth / layer: (deepest layer of debridement): [ ] Skin [ ] Subcutaneous [ ] Fascia [ ] Muscle [ ] Tendon [ ] Bone [ ] Incision and Drainage only (No Debridement): Depth: [ ] Skin [ ] Subcutaneous [ ] Fascia [ ] Muscle [ ] Tendon [ ] Bone [ ] Other procedure diagnosis [ ] Unable to determine For continuity of documentation, please document condition throughout progress notes and discharge summary. Thank You. CLINICAL INDICATORS - SIGNS / SYMPTOMS / LABS Debridement--09/12/18 Operative note There was some nonviable skin and subcutaneous tissues which was trimmed back ot bleeding healthly appearing tissue---09/12/18 OP note RISK FACTORS Diabetic foot infection with underlying peripheral vascular disease---09/12/18 OP note Osteomyelitis--H&P TREATMENTS: Debridement--performed 09/12/18 Place a VAC dressing and re-examine the wound at the bedside of the next dressing change to access viability--09/12/18 OP note Thank you, Becki Key, [facility] 09/24/18 7:12AM (This form is maintained as a part of the permanent medical record) 2015 [employer]. All Rights Reserved [email or web address] [phone] MTDD
== END 2018-09-19 17:20 | DRG 623 ==
LOC: ERS 18:11 → ONC 21:09
PROVIDERS: ADMIT Hospitalist; ATTEND Hospitalist
PROC: 0JBQ0ZZ Excision of Right Foot Subcutaneous Tissue and Fascia, Open Approach (ICD-10-PCS; principal; 2018-09-12)
DX: E11.69 Type 2 diabetes mellitus with other specified complication (principal); M86.8X7 Other osteomyelitis, ankle and foot; I13.0 Hypertensive heart and chronic kidney disease with heart failure and stage 1 through stage 4 chronic kidney disease, or unspecified chronic kidney disease; I50.22 Chronic systolic (congestive) heart failure; E11.51 Type 2 diabetes mellitus with diabetic peripheral angiopathy without gangrene; N17.9 Acute kidney failure, unspecified; E11.22 Type 2 diabetes mellitus with diabetic chronic kidney disease; N18.3 Chronic kidney disease, stage 3 (moderate); E11.621 Type 2 diabetes mellitus with foot ulcer; B96.5 Pseudomonas (aeruginosa) (mallei) (pseudomallei) as the cause of diseases classified elsewhere; I25.5 Ischemic cardiomyopathy; L97.519 Non-pressure chronic ulcer of other part of right foot with unspecified severity; E78.5 Hyperlipidemia, unspecified; J44.9 Chronic obstructive pulmonary disease, unspecified; D53.9 Nutritional anemia, unspecified; F17.210 Nicotine dependence, cigarettes, uncomplicated; Z89.421 Acquired absence of other right toe(s); Z79.4 Long term (current) use of insulin; Z79.899 Other long term (current) drug therapy; Z86.14 Personal history of Methicillin resistant Staphylococcus aureus infection; Z95.820 Peripheral vascular angioplasty status with implants and grafts; Z95.1 Presence of aortocoronary bypass graft
CPT/HCPCS: 36415; 36416; 80048; 80053; 80202; 83605; 83880; 85025; 85652; 86140; 86803; 87040; 87340; 87389; 96374; J0670; J1825; J2001; J2185; J2270; J2405; J2704; J3010; J3370; J3490; J7050; S0020

== ENCOUNTER 2019-01-27 13:46 | Emergency (ER) | payer MEDICARE ==
[2019-01-27] MEDS ORDERED: Morphine 4 MG/ML VIAL ONE (14:38)
[2019-01-27 14:43] LABS: #Eosinphils 0.1 thou/uL (0.0-0.7); #Lymphocytes 1.3 thou/uL (1.20-3.40); #Monocytes 0.6 thou/uL (0.11-0.59); #Neutrophils 4.7 thou/uL (1.40-6.50); %Basophils 0.5 % (0.0-1.0); %Eosinophils 1.2 % (0.0-10.0); %Lymphocytes 18.9 % (21.0-51.0); %Monocytes 8.8 % (0.0-10.0); %Neutrophils 70.6 % (42.0-75.0); Mean Corpuscular HGB CONC 32.8 g/dL (32.0-36.0); Mean Corpuscular Hemoglobin 31.4 pg (27.0-31.0); Mean Corpuscular Volume 95.5 fL (78.0-98.0); Mean Platelet Volume 7.5 fL (7.4-10.4); Platelet Count 250 thou/uL (130-400); RBC Distribution Width 11.3 % (11.5-14.5); Red Blood Cell (RBC) Count 3.19 mill/uL (4.20-5.40); White Blood Cell (WBC) Count 6.7 thou/uL (4.8-10.8)
--- NOTE | 2019-01-27 14:59 | RAD ---
EXAM: XR Pelvis AP STANDARD PROVIDED CLINICAL HISTORY: Pain FINDINGS: There is no evidence for fracture or other acute osseous abnormality. Alignment appears anatomic. Sydnie nt spaces appear preserved. Vascular stent material and surgical clips. IMPRESSION: No evidence for an acute osseous abnormality. If there is persistent clinical concern, conservative m anagement and follow-up imaging advised.
--- NOTE | 2019-01-27 15:00 | RAD ---
EXAM: XR Tib Fib Rt Leg 2 View PROVIDED CLINICAL HISTORY: Pain COMPARISON: None FINDINGS: Nondisplaced proximal fibular neck fracture. Vascular calcifications. IMPRESSION: As above.
--- NOTE | 2019-01-27 15:01 | RAD ---
EXAM: XR Foot Rt 3 View STANDARD PROVIDED CLINICAL HISTORY: Pain FINDINGS: Comparison to 11/24/2018. Surgically absent distal fifth ray. There is no evidence for fracture or oth er acute osseous abnormality. Alignment appears anatomic. Joint spaces appear preserved. IMPRESSION: No evidence for an acute osseous abnormality. If there is persistent clinical concern, conservative m anagement and follow-up imaging advised.
--- NOTE | 2019-01-27 15:01 | RAD ---
EXAM: XR Femur Rt 2 View STANDARD PROVIDED CLINICAL HISTORY: Pain FINDINGS: There is no evidence for fracture or other acute osseous abnormality. Alignment appears anatomic. Sydnie nt spaces appear preserved. IMPRESSION: No evidence for an acute osseous abnormality. If there is persistent clinical concern, conservative m anagement and follow-up imaging advised.
--- NOTE | 2019-01-27 15:02 | RAD ---
EXAM: Portable chest PROVIDED CLINICAL HISTORY: Syncope COMPARISON: 05/18/2018 FINDINGS: Median sternotomy changes and CABG changes are redemonstrated. Left subclavian cardiac pacing device is now noted. No focal consolidation, pleural fluid or pneumothorax evident. IMPRESSION: No evidence for an acute cardiopulmonary process.
[2019-01-27 15:03] LABS: ALT (SGPT) 12 U/L (8-55); AST (SGOT) 9 U/L (5-34); Albumin 3.7 g/dL (3.5-5.0); Alkaline Phosphatase 176 U/L (40-150); Anion Gap 13 mmol/L (10-20); BUN (Urea Nitrogen) 31 mg/dL (9.8-20.1); Bilirubin, Total 0.2 mg/dL (0.2-1.2); Calc. Creatinine Clearance 0 mL/min (70-130); Calcium 8.4 mg/dL (7.8-10.44); Carbon Dioxide 27 mmol/L (22-29); Chloride 104 mmol/L (98-107); Estimated GFR-MDRD 41; Globulin 2.8 g/dL (2.4-3.5); Glucose 276 mg/dL (70-105); Protein, Total 6.5 g/dL (6.0-8.3); Sodium 140 mmol/L (136-145)
[2019-01-27 15:44] LABS: Lipase 34 U/L (8-78)
[2019-01-27 15:45] LABS: CK (CPK) 44 U/L (29-168)
[2019-01-27 16:23] LABS: Bilirubin Negative (Negative); Blood, Urine Negative (Negative); Clarity CLOUDY (Clear); Glucose, Urine (Dipstick) 500 mg/dL (Negative); Leukocyte Negative (Negative); Nitrite Negative (Negative); Protein, Urine (Dipstick) Trace mg/dL (Neg-Trace); Specific Gravity, Urine 1.011 (1.002-1.036); Urobilinogen 0.2 mg/dL (0.2-1.0); pH, Urine 5.5 (5.0-9.0)
[2019-01-27] MEDS ORDERED: Ketorolac Tromethamine 30 MG/ML VIAL ONE (16:29)
[2019-01-27] MEDS ORDERED: Acetaminophen 500 MG TAB ONE (16:29)
== END 2019-01-27 16:24 | disposition home or self-care (01) ==
LOC: ERS 13:46
DX: S82.831A Other fracture of upper and lower end of right fibula, initial encounter for closed fracture (principal); E78.5 Hyperlipidemia, unspecified; I11.0 Hypertensive heart disease with heart failure; I50.9 Heart failure, unspecified; J44.9 Chronic obstructive pulmonary disease, unspecified; F41.9 Anxiety disorder, unspecified; F32.9 Major depressive disorder, single episode, unspecified; Z87.891 Personal history of nicotine dependence; Z79.899 Other long term (current) drug therapy; W19.XXXA Unspecified fall, initial encounter
CPT/HCPCS: 36415; 71045; 72170; 80053; 81003; 82550; 83690; 83880; 84146; 84484; 85025; 93005; 94760; 96361; 96374; J1885; J2270

== ENCOUNTER 2019-01-29 15:38 | Emergency (ER) | payer MEDICARE ==
[2019-01-29] MEDS ORDERED: HYDROcodone/Acetaminophen 10/325 mg Tablet ONE (16:13)
--- NOTE | 2019-01-29 16:38 | ULT ---
ULTRASOUND DOPPLER DUPLEX VENOUS RIGHT LOWER EXTREMITY: DATE: 01/29/2019 HISTORY: 53-year-old female with right lower extremity pain. TECHNIQUE: Grayscale, color-flow, and spectral analysis, of major veins of right lower extremity. FINDINGS: There is demonstration of blood flow with normal compressibility, of the right common femoral, profun da femoral, greater saphenous, proximal and mid segments of femoral, and posterior tibial, veins. The distal portion of the femoral vein, and entire popliteal vein, are not accessible to ultrasound v isualization because of brace, according to the electrical panel builder. IMPRESSION: 1) right popliteal vein and distal portion of right femoral vein cannot be visualized because of exte rnal device. 2) otherwise, No deep venous thrombosis of the rest of the veins of the right lower extremity.
== END 2019-01-29 20:41 | disposition home or self-care (01) ==
LOC: ERS 15:38
DX: M79.604 Pain in right leg (principal); S82.401D Unspecified fracture of shaft of right fibula, subsequent encounter for closed fracture with routine healing; Z79.891 Long term (current) use of opiate analgesic; Z79.899 Other long term (current) drug therapy; Z79.4 Long term (current) use of insulin; X58.XXXD Exposure to other specified factors, subsequent encounter

== ENCOUNTER 2019-07-17 10:28 | Outpatient (CLI) | payer MEDICARE ==
--- NOTE | 2019-07-17 11:21 | MMO ---
Bilateral MAMMO Bilat Diag [facility]. CLINICAL HISTORY: Patient is 53 years old and is seen for diagnostic exam and non-bloody discharge in the right breast. The patient has the following family history of breast cancer: maternal aunt, malignant (generic), GREAT AUNT. The patient has no personal history of cancer. The patient has a history of left Excisional Biopsy in 1999 - benign. VIEWS: The views performed were: bilateral craniocaudal with tomosynthesis; bilateral mediolateral oblique with tomosynthesis; and bilateral mediolateral with tomosynthesis. FILMS COMPARED: The present examination has been compared to prior imaging studies performed at [facility] on 07/24/2015, 05/14/2018 and 07/17/2019. This study has been interpreted with the assistance of computer-aided detection. MAMMOGRAM FINDINGS: There are scattered fibroglandular densities. No suspcious mass is seen in the retroareolar right breast by mammography or sonography. There are no suspicious masses, suspicious calcifications, or new areas of architectural distortion. IMPRESSION: THERE IS NO MAMMOGRAPHIC EVIDENCE OF MALIGNANCY. NO MAMMOGRAPHIC OR SONOGRAPHIC ABNORMALITIES ARE PRESENT TO CORRELATE WITH THE RIGHT BREAST DISCHARGE. THE PATIENT WILL BE REFERRED BACK TO HER CLINICIAN FOR FURTHER CARE. BIOPSY SHOULD NOT BE PRECLUDED BY THE ABSCENCE OF IMAGING FINDINGS, IN THE SETTING OF CLINICAL CONCERN FOR MALIGNANCY. THE FINDINGS AND RECOMMENDATIONS WERE DISCUSSED WITH THE PATIENT PRIOR TO HER LEAVING THE CENTER. A ROUTINE FOLLOW-UP MAMMOGRAM IN 1 YEAR IS RECOMMENDED. THE RESULTS OF THIS EXAM WERE SENT TO THE PATIENT. ACR BI-RADS Category 2 - Benign finding MAMMOGRAPHY NOTE: 1. A negative mammogram report should not delay a biopsy if a dominant of clinically suspicious mass is present. 2. Approximately 10% to 15% of breast cancers are not detected by mammography. 3. Adenosis and dense breasts may obscure an underlying neoplasm. Reported by: PHILLIP LEE MD Electonically Signed: [id number]
--- NOTE | 2019-07-17 12:17 | ULT ---
RIGHT BREAST ULTRASOUND: Date: 07/17/19 INDICATION: Nipple discharge and nipple tenderness. FINDINGS: Sonographic evaluation of the right breast retroareolar region demonstrates no suspicious sonographic abnormality. IMPRESSION: BI-RADS Category 2 - Benign. No suspicious sonographic abnormality is seen within the right breast re troareolar area. POS: OFF
== END 2019-07-17 10:29 | disposition home or self-care (01) ==
LOC: BICMAMMO 10:28
PROVIDERS: ATTEND Family Medicine
DX: N64.52 Nipple discharge (principal); N64.4 Mastodynia
CPT/HCPCS: 76642; 77066; G0279

== ENCOUNTER 2020-01-31 09:28 | Outpatient (CLI) | payer MEDICARE ==
--- NOTE | 2020-02-03 15:49 | NM ---
NUCLEAR MEDICINE THREE PHASE BONE SCAN OF FEET 02/03/2020 NUCLEAR MEDICINE WHOLE BODY BONE SCAN 01/31/2020: TECHNIQUE: Three phase bone scan of the feet was performed today after the patient was administered 31 mCi of te chnetium-99m HDP.. Whole body imaging was performed on 01/31/2020 after the patient was administered 30 mCi of technetium-99m MDP intravenously. FINDINGS: THREE PHASE BONE SCAN OF FEET: There is increased flow involving the first digit in the right foot. There is increased radiotracer l ocalization on the blood pool and delayed images favoring cellulitis and osteomyelitis of the first d igit. There is uptake involving both feet and ankles on the delayed images. WHOLE BODY BONE SCAN: Whole body delayed images demonstrate physiologic radiotracer distribution. Uptake in bilateral knees and shoulders likely due to degenerative change. Uptake in the T11 and T12 vertebral body may be on the basis of degenerative change. Correlation made with a CT from 08/23/2019 does demonstrate diffus e bone demineralization of the visualized thoracic and lumbar spine. As a conservative measure, 2 vie w thoracic spine radiograph is recommended. IMPRESSION: 1. Uptake of radiotracer involving the first digit of the right foot suggesting an osteomyelitis and cellulitis. 2. Uptake in the shoulders, feet, ankle, and knees is felt to be due to degenerative change. 3. Uptake in the T11 and T12 vertebral body is nonspecific. Radiographs are recommended
== END 2020-01-31 09:29 | disposition home or self-care (01) ==
LOC: NM 09:28
PROVIDERS: ATTEND Surgery
DX: W54.0XXD Bitten by dog, subsequent encounter (principal); M19.011 Primary osteoarthritis, right shoulder; M19.012 Primary osteoarthritis, left shoulder; M17.0 Bilateral primary osteoarthritis of knee; M19.071 Primary osteoarthritis, right ankle and foot; M19.072 Primary osteoarthritis, left ankle and foot
CPT/HCPCS: 78306; A9503

== ENCOUNTER 2020-02-03 09:30 | Outpatient (CLI) | payer MEDICARE ==
--- NOTE | 2020-02-03 15:48 | NM ---
NUCLEAR MEDICINE THREE PHASE BONE SCAN OF FEET 02/03/2020 NUCLEAR MEDICINE WHOLE BODY BONE SCAN 01/31/2020: TECHNIQUE: Three phase bone scan of the feet was performed today after the patient was administered 31 mCi of te chnetium-99m HDP.. Whole body imaging was performed on 01/31/2020 after the patient was administered 30 mCi of technetium-99m MDP intravenously. FINDINGS: THREE PHASE BONE SCAN OF FEET: There is increased flow involving the first digit in the right foot. There is increased radiotracer l ocalization on the blood pool and delayed images favoring cellulitis and osteomyelitis of the first d igit. There is uptake involving both feet and ankles on the delayed images. WHOLE BODY BONE SCAN: Whole body delayed images demonstrate physiologic radiotracer distribution. Uptake in bilateral knees and shoulders likely due to degenerative change. Uptake in the T11 and T12 vertebral body may be on the basis of degenerative change. Correlation made with a CT from 08/23/2019 does demonstrate diffus e bone demineralization of the visualized thoracic and lumbar spine. As a conservative measure, 2 vie w thoracic spine radiograph is recommended. IMPRESSION: 1. Uptake of radiotracer involving the first digit of the right foot suggesting an osteomyelitis and cellulitis. 2. Uptake in the shoulders, feet, ankle, and knees is felt to be due to degenerative change. 3. Uptake in the T11 and T12 vertebral body is nonspecific. Radiographs are recommended. POS: OFF
== END 2020-02-03 09:31 | disposition home or self-care (01) ==
LOC: NM 09:30
PROVIDERS: ATTEND Surgery
DX: T14.8XXA Other injury of unspecified body region, initial encounter (principal); W54.0XXD Bitten by dog, subsequent encounter
CPT/HCPCS: 78315; A9503

== ENCOUNTER 2021-05-30 18:03 | Inpatient (IN) | payer MEDICARE ==
[2021-05-30] MEDS ORDERED: Ketorolac Tromethamine 30 MG/ML VIAL ONE (19:54)
[2021-05-30 20:04] LABS: #Basophils 0.1 thou/uL (0.0-0.2); #Eosinphils 0.1 thou/uL (0.0-0.7); #Lymphocytes 1.9 thou/uL (1.20-3.40); #Monocytes 0.7 thou/uL (0.11-0.59); #Neutrophils 5.6 thou/uL (1.40-6.50); %Basophils 0.8 % (0.0-1.0); %Eosinophils 0.7 % (0.0-10.0); %Lymphocytes 22.6 % (21.0-51.0); %Monocytes 8.8 % (0.0-10.0); %Neutrophils 67.1 % (42.0-75.0); Hemoglobin 12.4 g/dL (12.0-16.0); Mean Corpuscular HGB CONC 34.6 g/dL (32.0-36.0); Mean Corpuscular Hemoglobin 33.1 pg (27.0-31.0); Mean Corpuscular Volume 95.9 fL (78.0-98.0); Mean Platelet Volume 8.1 fL (7.4-10.4); Platelet Count 223 thou/uL (130-400); RBC Distribution Width 12.6 % (11.5-14.5); Red Blood Cell (RBC) Count 3.76 mill/uL (4.20-5.40); White Blood Cell (WBC) Count 8.3 thou/uL (4.8-10.8)
[2021-05-30 20:26] LABS: ALT (SGPT) 13 U/L (8-55); AST (SGOT) 11 U/L (5-34); Albumin 3.3 g/dL (3.5-5.0); Alkaline Phosphatase 152 U/L (40-110); Anion Gap 14 mmol/L (10-20); BUN (Urea Nitrogen) 28 mg/dL (9.8-20.1); Bilirubin, Total 0.2 mg/dL (0.2-1.2); Calc. Creatinine Clearance 0 mL/min (70-130); Calcium 8.5 mg/dL (7.8-10.44); Carbon Dioxide 30 mmol/L (22-29); Chloride 94 mmol/L (98-107); Globulin 3.1 g/dL (2.4-3.5); Glucose 400 mg/dL (70-105); Potassium 3.9 mmol/L (3.5-5.1); Protein, Total 6.4 g/dL (6.0-8.3); Sodium 134 mmol/L (136-145)
[2021-05-30] MEDS ORDERED: HumaLOG 300 UNITS/3 ML VIAL SC PRN (22:38)
[2021-05-30] MEDS ORDERED: Dextrose 50% Abboject 50 ML SYRINGE SLOW IVP PRN (22:38)
[2021-05-30] MEDS ORDERED: Dextrose 5% in Water 1,000 ML IV PRN (22:38)
[2021-05-30] MEDS ORDERED: Morphine 4 MG/ML VIAL ONE (22:40)
[2021-05-31 00:47] VITALS: BMI 33.7
[2021-05-31 01:44] LABS: Bacteria/HPF 4+ HPF (None Seen); RBC/HPF 0-3 HPF (0-3); WBC/HPF 21-50 HPF (0-3)
[2021-05-31] MEDS: HumaLOG 300 UNITS/3 ML VIAL SC PRN ×3 (02:20→20:02)
[2021-05-31] MEDS: Morphine 4 MG/ML VIAL SLOW IVP PRN ×4 (03:44→20:02)
[2021-05-31] MEDS ORDERED: Enoxaparin Sodium 30 MG/0.3 ML SYRINGE SC SCH (09:00)
[2021-05-31 12:12] LABS: #Lymphocytes 1.6 thou/uL (1.20-3.40); #Monocytes 0.5 thou/uL (0.11-0.59); %Basophils 0.5 % (0.0-1.0); %Eosinophils 0.5 % (0.0-10.0); %Monocytes 5.1 % (0.0-10.0); %Neutrophils 76.9 % (42.0-75.0); Mean Corpuscular HGB CONC 34.3 g/dL (32.0-36.0); Mean Corpuscular Hemoglobin 32.8 pg (27.0-31.0); Mean Corpuscular Volume 95.7 fL (78.0-98.0); Platelet Count 226 thou/uL (130-400); RBC Distribution Width 12.6 % (11.5-14.5); Red Blood Cell (RBC) Count 3.96 mill/uL (4.20-5.40); White Blood Cell (WBC) Count 9.1 thou/uL (4.8-10.8)
[2021-05-31 12:26] LABS: Anion Gap 11 mmol/L (10-20); BUN (Urea Nitrogen) 26 mg/dL (9.8-20.1); Calc. Creatinine Clearance 55 mL/min (70-130); Calcium 8.8 mg/dL (7.8-10.44); Carbon Dioxide 34 mmol/L (22-29); Chloride 96 mmol/L (98-107); Glucose 227 mg/dL (70-105); Potassium 3.4 mmol/L (3.5-5.1); Sodium 138 mmol/L (136-145)
[2021-05-31 12:35] LABS: SARS-CoV-2 PCR by NAA Not Detected (NotDetected)
[2021-05-31] MEDS ORDERED: Communication Order-Pharmacy FS SCH (14:15)
[2021-05-31] MEDS: Sodium Chloride 0.9% 1,000 ML IV SCH (14:52)
[2021-05-31 18:55] LABS: Bilirubin Negative (Negative); Blood, Urine 1+ (Negative); Clarity Turbid (Clear); Glucose, Urine (Dipstick) >=1000 mg/dL (Negative); Ketone, Urine Negative (Negative); Leukocyte 250 Leu/uL (Negative); Nitrite Negative (Negative); Protein, Urine (Dipstick) 300 mg/dL (Neg-Trace); RBC/HPF 0-3 HPF (0-3); Specific Gravity, Urine 1.013 (1.002-1.036); Squamous Epithelial 0-3 HPF (0-3); Urobilinogen Normal mg/dL (Less than 2); WBC/HPF Greater than 50 HPF (0-3)
[2021-05-31 18:56] LABS: Bacteria/HPF 1+ HPF (None Seen)
[2021-05-31 19:14] LABS: Creatinine, Urine 76.08 mg/dL (47-110)
[2021-05-31] MEDS: Gabapentin 400 MG CAP PO SCH (20:02)
[2021-06-01] MEDS: Morphine 4 MG/ML VIAL SLOW IVP PRN ×5 (00:26→20:07)
[2021-06-01] MEDS: Sodium Chloride 0.9% 1,000 ML IV SCH ×2 (02:41→13:52)
[2021-06-01] MEDS ORDERED: Lidocaine 1% (PF) 30 ML VIAL ONE (06:33)
[2021-06-01] MEDS ORDERED: Midazolam HCl 2 mg/2 ml Vial ONE (07:17)
[2021-06-01] MEDS ORDERED: Fentanyl 100 MCG/2 ML VIAL ONE (07:17)
[2021-06-01] MEDS ORDERED: Heparin 10,000 UNITS/ 10 ML VIAL ONE (07:21)
[2021-06-01] MEDS ORDERED: hydrALAZINE 20 MG/ML VIAL ONE (07:21)
[2021-06-01 07:47] LABS: #Eosinphils 0.1 thou/uL (0.0-0.7); #Lymphocytes 1.5 thou/uL (1.20-3.40); #Monocytes 0.5 thou/uL (0.11-0.59); #Neutrophils 4.9 thou/uL (1.40-6.50); %Basophils 0.6 % (0.0-1.0); %Eosinophils 0.9 % (0.0-10.0); %Lymphocytes 21.5 % (21.0-51.0); %Monocytes 7.5 % (0.0-10.0); %Neutrophils 69.6 % (42.0-75.0); Hemoglobin 10.7 g/dL (12.0-16.0); Mean Corpuscular Hemoglobin 32.6 pg (27.0-31.0); Mean Corpuscular Volume 95.9 fL (78.0-98.0); Mean Platelet Volume 8.1 fL (7.4-10.4); Platelet Count 198 thou/uL (130-400); RBC Distribution Width 12.6 % (11.5-14.5); Red Blood Cell (RBC) Count 3.29 mill/uL (4.20-5.40); White Blood Cell (WBC) Count 7.1 thou/uL (4.8-10.8)
[2021-06-01 08:10] LABS: Anion Gap 11 mmol/L (10-20); BUN (Urea Nitrogen) 27 mg/dL (9.8-20.1); Calc. Creatinine Clearance 57 mL/min (70-130); Calcium 8.3 mg/dL (7.8-10.44); Carbon Dioxide 30 mmol/L (22-29); Chloride 98 mmol/L (98-107); Glucose 261 mg/dL (70-105); Potassium 3.5 mmol/L (3.5-5.1); Sodium 135 mmol/L (136-145)
[2021-06-01] MEDS ORDERED: Iopamidol 370 76% 100 ML VIAL ONE (09:15)
[2021-06-01] MEDS: Clopidogrel Bisulfate 75 MG TAB PO SCH (09:36)
[2021-06-01] MEDS: Lantus 1000 UNITS/10 ML VIAL SC SCH (09:36)
[2021-06-01] MEDS: Gabapentin 400 MG CAP PO SCH ×2 (09:36→20:06)
[2021-06-02] MEDS: HumaLOG 300 UNITS/3 ML VIAL SC PRN (05:36)
[2021-06-02] MEDS: Morphine 4 MG/ML VIAL SLOW IVP PRN ×4 (05:41→23:31)
[2021-06-02] MEDS: Sodium Chloride 0.9% 1,000 ML IV SCH ×2 (05:41→20:36)
[2021-06-02 07:54] LABS: #Eosinphils 0.1 thou/uL (0.0-0.7); #Lymphocytes 1.5 thou/uL (1.20-3.40); #Monocytes 0.7 thou/uL (0.11-0.59); #Neutrophils 5.7 thou/uL (1.40-6.50); %Basophils 0.3 % (0.0-1.0); %Eosinophils 0.6 % (0.0-10.0); %Lymphocytes 18.8 % (21.0-51.0); %Monocytes 8.5 % (0.0-10.0); %Neutrophils 71.9 % (42.0-75.0); Hemoglobin 10.4 g/dL (12.0-16.0); Mean Corpuscular Hemoglobin 31.5 pg (27.0-31.0); Mean Corpuscular Volume 95.3 fL (78.0-98.0); Mean Platelet Volume 8.3 fL (7.4-10.4); Platelet Count 209 thou/uL (130-400); RBC Distribution Width 12.5 % (11.5-14.5); Red Blood Cell (RBC) Count 3.31 mill/uL (4.20-5.40)
[2021-06-02] MEDS ORDERED: Fleet Enema 133 ML BOT FS SCH (08:00)
[2021-06-02 08:07] LABS: Anion Gap 13 mmol/L (10-20); BUN (Urea Nitrogen) 22 mg/dL (9.8-20.1); Calc. Creatinine Clearance 59 mL/min (70-130); Calcium 8.4 mg/dL (7.8-10.44); Carbon Dioxide 28 mmol/L (22-29); Chloride 101 mmol/L (98-107); Glucose 252 mg/dL (70-105); Potassium 3.7 mmol/L (3.5-5.1); Sodium 138 mmol/L (136-145)
[2021-06-02] MEDS: Lantus 1000 UNITS/10 ML VIAL SC SCH (09:04)
[2021-06-02] MEDS: Gabapentin 400 MG CAP PO SCH ×2 (09:05→20:34)
[2021-06-02] MEDS: Clopidogrel Bisulfate 75 MG TAB PO SCH (09:06)
[2021-06-03] MEDS ORDERED: Polyethylene Glycol 3350 17 GM Packet PO PRN (02:27)
[2021-06-03] MEDS: Morphine 4 MG/ML VIAL SLOW IVP PRN ×3 (04:54→13:17)
[2021-06-03] MEDS: Sodium Chloride 0.9% 1,000 ML IV SCH (04:54)
[2021-06-03 06:07] LABS: #Basophils 0.1 thou/uL (0.0-0.2); #Eosinphils 0.1 thou/uL (0.0-0.7); #Monocytes 0.8 thou/uL (0.11-0.59); #Neutrophils 6.6 thou/uL (1.40-6.50); %Basophils 0.5 % (0.0-1.0); %Eosinophils 0.7 % (0.0-10.0); %Lymphocytes 21.1 % (21.0-51.0); %Monocytes 7.9 % (0.0-10.0); %Neutrophils 69.8 % (42.0-75.0); Hemoglobin 10.6 g/dL (12.0-16.0); Mean Corpuscular HGB CONC 32.2 g/dL (32.0-36.0); Mean Corpuscular Hemoglobin 31.1 pg (27.0-31.0); Mean Corpuscular Volume 96.6 fL (78.0-98.0); Mean Platelet Volume 8.2 fL (7.4-10.4); Platelet Count 219 thou/uL (130-400); RBC Distribution Width 12.6 % (11.5-14.5); White Blood Cell (WBC) Count 9.5 thou/uL (4.8-10.8)
[2021-06-03 06:26] LABS: Anion Gap 14 mmol/L (10-20); BUN (Urea Nitrogen) 19 mg/dL (9.8-20.1); Calc. Creatinine Clearance 64 mL/min (70-130); Calcium 8.3 mg/dL (7.8-10.44); Carbon Dioxide 26 mmol/L (22-29); Chloride 104 mmol/L (98-107); Glucose 94 mg/dL (70-105); Potassium 4.3 mmol/L (3.5-5.1); Sodium 140 mmol/L (136-145)
[2021-06-03] MEDS: Gabapentin 400 MG CAP PO SCH (08:58)
[2021-06-03] MEDS: Lantus 1000 UNITS/10 ML VIAL SC SCH (09:00)
[2021-06-03] MEDS: Clopidogrel Bisulfate 75 MG TAB PO SCH (09:07)
[2021-06-03 12:00] VITALS: TEMP 98.1
[2021-06-03 12:01] VITALS: BP 152/77
[2021-06-04 15:29] LABS: ANA Symphony (Qualitative) Negative (Negative); ANA Symphony (Quantitative) 0.2 Ratio (< 0.7 Negative)
== END 2021-06-03 18:18 | disposition home or self-care (01) | DRG 300 ==
LOC: ERS 18:03 → T4-A 22:22
PROVIDERS: ADMIT Student in an Organized Health Care Education/Training Program; ATTEND Internal Medicine
PROC: B41D1ZZ Fluoroscopy of Aorta and Bilateral Lower Extremity Arteries using Low Osmolar Contrast (ICD-10-PCS; principal; 2021-06-01)
DX: E11.51 Type 2 diabetes mellitus with diabetic peripheral angiopathy without gangrene (principal); I50.22 Chronic systolic (congestive) heart failure; I13.0 Hypertensive heart and chronic kidney disease with heart failure and stage 1 through stage 4 chronic kidney disease, or unspecified chronic kidney disease; N17.9 Acute kidney failure, unspecified; E87.1 Hypo-osmolality and hyponatremia; E87.3 Alkalosis; L97.929 Non-pressure chronic ulcer of unspecified part of left lower leg with unspecified severity; L97.919 Non-pressure chronic ulcer of unspecified part of right lower leg with unspecified severity; N25.81 Secondary hyperparathyroidism of renal origin; I25.10 Atherosclerotic heart disease of native coronary artery without angina pectoris; N18.30 Chronic kidney disease, stage 3 unspecified; E11.22 Type 2 diabetes mellitus with diabetic chronic kidney disease; E11.65 Type 2 diabetes mellitus with hyperglycemia; F32.A Depression, unspecified; E78.5 Hyperlipidemia, unspecified; E78.00 Pure hypercholesterolemia, unspecified; J44.9 Chronic obstructive pulmonary disease, unspecified; G89.29 Other chronic pain; M54.50 Low back pain, unspecified; E88.09 Other disorders of plasma-protein metabolism, not elsewhere classified; I25.5 Ischemic cardiomyopathy; E55.9 Vitamin D deficiency, unspecified; I70.249 Atherosclerosis of native arteries of left leg with ulceration of unspecified site; I70.239 Atherosclerosis of native arteries of right leg with ulceration of unspecified site; Z87.891 Personal history of nicotine dependence; Z95.1 Presence of aortocoronary bypass graft; Z79.899 Other long term (current) drug therapy; Z79.4 Long term (current) use of insulin; Z79.02 Long term (current) use of antithrombotics/antiplatelets; Z89.422 Acquired absence of other left toe(s); Z95.810 Presence of automatic (implantable) cardiac defibrillator
CPT/HCPCS: 36246; 36415; 36416; 75625; 75716; 75736; 76770; 76942; 80048; 80053; 81001; 81015; 82306; 82570; 83970; 84156; 85025; 86038; 86225; 96374; 96375; 99152; J0360; J1644; J1650; J1815; J1885; J2001; J2250; J2270; J3010; J7050; Q9967; U0003; U0005

== ENCOUNTER 2021-11-11 16:14 | Inpatient (IN) | payer MEDICARE ==
[~2021-11-11 16:14] MED LIST: Heparin 1,000 UNITS/ML VIAL ONE
[2021-11-11] MEDS ORDERED: Piperacillin/Tazobactam 3.375 GM in Sodium Chloride 0.9% 100 ML IVPB SCH (17:30)
[2021-11-11 18:11] LABS: #Lymphocytes 1.7 thou/uL (1.20-3.40); #Monocytes 0.9 thou/uL (0.11-0.59); %Basophils 0.4 % (0.0-1.0); %Eosinophils 0.5 % (0.0-10.0); %Neutrophils 72.2 % (42.0-75.0); Hemoglobin 8.7 g/dL (12.0-16.0); Mean Corpuscular HGB CONC 32.5 g/dL (32.0-36.0); Mean Corpuscular Hemoglobin 31.7 pg (27.0-31.0); Mean Corpuscular Volume 97.6 fL (78.0-98.0); Platelet Count 307 thou/uL (130-400); RBC Distribution Width 13.6 % (11.5-14.5); Red Blood Cell (RBC) Count 2.74 mill/uL (4.20-5.40); White Blood Cell (WBC) Count 9.7 thou/uL (4.8-10.8)
[2021-11-11 18:26] LABS: ALT (SGPT) Less than 7 U/L (8-55); AST (SGOT) 6 U/L (5-34); Albumin 3.4 g/dL (3.5-5.0); Alkaline Phosphatase 129 U/L (40-110); Anion Gap 15 mmol/L (10-20); BUN (Urea Nitrogen) 32 mg/dL (9.8-20.1); Bilirubin, Total 0.2 mg/dL (0.2-1.2); CRP (Inflammatory) 5.63 mg/dL (= or < 0.5); Calc. Creatinine Clearance 0 mL/min (70-130); Calcium 8.8 mg/dL (7.8-10.44); Carbon Dioxide 23 mmol/L (22-29); Chloride 101 mmol/L (98-107); Globulin 3.4 g/dL (2.4-3.5); Glucose 297 mg/dL (70-105); Protein, Total 6.8 g/dL (6.0-8.3); Sodium 134 mmol/L (136-145)
[2021-11-11] MEDS ORDERED: Acetaminophen 325 MG TAB PO PRN (20:07)
[2021-11-11] MEDS ORDERED: Ondansetron PF 4 MG/2 ML Vial IVP PRN (20:07)
[2021-11-11] MEDS ORDERED: Ondansetron ODT 4 MG TAB PO PRN (20:07)
[2021-11-11] MEDS ORDERED: Dextrose 50% Abboject 50 ML SYRINGE SLOW IVP PRN (20:07)
[2021-11-11] MEDS ORDERED: Dextrose 5% in Water 1,000 ML IV PRN (20:07)
[2021-11-11] MEDS ORDERED: Acetaminophen 650 MG Suppository PR PRN (20:07)
[2021-11-11] MEDS ORDERED: Senokot S 8.6-50 MG TAB PO PRN (20:10)
[2021-11-11] MEDS ORDERED: Vancomycin 1 GM in Premix Bag 1 BAG IVPB SCH ×2 (20:15→20:45)
[2021-11-11 20:36] VITALS: BMI 33.5
[2021-11-11 20:46] LABS: Lactic Acid 0.7 mmol/L (0.5-2.2)
[2021-11-11] MEDS: Morphine 4 MG/ML VIAL SLOW IVP PRN (21:04)
[2021-11-11] MEDS: Gabapentin 300 MG CAP PO SCH (21:05)
[2021-11-11] MEDS: Carvedilol 25 MG TAB PO SCH (21:22)
[2021-11-11] MEDS: HumaLOG 300 UNITS/3 ML VIAL SC PRN (21:53)
[2021-11-11] MEDS: Piperacillin/Tazobactam 3.375 GM in Sodium Chloride 0.9% 100 ML IVPB SCH (22:22)
[2021-11-12] MEDS ORDERED: diphenhydrAMINE 25 MG CAP PO SCH (00:45)
[2021-11-12] MEDS: Morphine 4 MG/ML VIAL SLOW IVP PRN ×5 (01:19→20:53)
[2021-11-12 01:26] LABS: SARS-CoV-2 NAA Rapid Test Not Detected (NotDetected)
[2021-11-12 05:34] LABS: #Eosinphils 0.1 thou/uL (0.0-0.7); #Lymphocytes 1.8 thou/uL (1.20-3.40); #Neutrophils 5.6 thou/uL (1.40-6.50); %Basophils 0.2 % (0.0-1.0); %Eosinophils 0.8 % (0.0-10.0); %Lymphocytes 21.4 % (21.0-51.0); %Monocytes 11.5 % (0.0-10.0); Hemoglobin 7.8 g/dL (12.0-16.0); Mean Corpuscular HGB CONC 32.3 g/dL (32.0-36.0); Mean Corpuscular Hemoglobin 31.8 pg (27.0-31.0); Mean Corpuscular Volume 98.6 fL (78.0-98.0); Mean Platelet Volume 7.2 fL (7.4-10.4); Platelet Count 265 thou/uL (130-400); RBC Distribution Width 13.5 % (11.5-14.5); Red Blood Cell (RBC) Count 2.44 mill/uL (4.20-5.40); White Blood Cell (WBC) Count 8.5 thou/uL (4.8-10.8)
[2021-11-12] MEDS: Piperacillin/Tazobactam 3.375 GM in Sodium Chloride 0.9% 100 ML IVPB SCH ×3 (05:35→22:11)
[2021-11-12] MEDS: HumaLOG 300 UNITS/3 ML VIAL SC PRN ×3 (05:43→18:03)
[2021-11-12 05:50] LABS: Anion Gap 14 mmol/L (10-20); BUN (Urea Nitrogen) 33 mg/dL (9.8-20.1); Calc. Creatinine Clearance 38 mL/min (70-130); Calcium 8.2 mg/dL (7.8-10.44); Carbon Dioxide 25 mmol/L (22-29); Chloride 101 mmol/L (98-107); Glucose 224 mg/dL (70-105); Potassium 4.7 mmol/L (3.5-5.1); Sodium 135 mmol/L (136-145)
[2021-11-12] MEDS ORDERED: diphenhydrAMINE 25 MG CAP PO PRN (08:31)
[2021-11-12] MEDS ORDERED: Spironolactone 25 MG TAB PO SCH ×2 (08:45→09:00)
[2021-11-12] MEDS: Clopidogrel Bisulfate 75 MG TAB PO SCH (09:08)
[2021-11-12] MEDS: Carvedilol 25 MG TAB PO SCH ×2 (09:08→20:40)
[2021-11-12] MEDS: Famotidine 20 MG TAB PO SCH (09:08)
[2021-11-12] MEDS: Gabapentin 300 MG CAP PO SCH ×2 (09:08→20:40)
[2021-11-12] MEDS: Atorvastatin Calcium 40 MG TAB PO SCH (09:08)
[2021-11-12] MEDS: Insulin Glargine 30 UNITS/0.3 ML VIAL SC SCH ×2 (09:09→20:42)
[2021-11-12 14:18] LABS: Bacteria/HPF 1+ HPF (None Seen); Bilirubin Negative (Negative); Blood, Urine Negative (Negative); Clarity Clear (Clear); Glucose, Urine (Dipstick) 50 mg/dL (Negative); Ketone, Urine Negative (Negative); Leukocyte Negative Leu/uL (Negative); Nitrite Negative (Negative); Protein, Urine (Dipstick) 100 mg/dL (Neg-Trace); RBC/HPF 0-3 HPF (0-3); Specific Gravity, Urine 1.015 (1.002-1.036); Urobilinogen Normal mg/dL (Less than 2); WBC/HPF 0-3 HPF (0-3); pH, Urine 6.5 (5.0-9.0)
[2021-11-12] MEDS: Heparin 5,000 UNITS/ML VIAL SC SCH (20:41)
[2021-11-12] MEDS ORDERED: Vancomycin HCl 1 GM, Admixture Fee 1 EACH in Sodium Chloride 0.9% 250 ML 250 ML IVPB SCH (22:00)
[2021-11-13] MEDS: Morphine 4 MG/ML VIAL SLOW IVP PRN ×3 (04:08→20:31)
[2021-11-13] MEDS: Piperacillin/Tazobactam 3.375 GM in Sodium Chloride 0.9% 100 ML IVPB SCH ×3 (05:12→22:36)
[2021-11-13 05:50] LABS: #Eosinphils 0.1 thou/uL (0.0-0.7); #Lymphocytes 1.7 thou/uL (1.20-3.40); #Neutrophils 6.9 thou/uL (1.40-6.50); %Basophils 0.1 % (0.0-1.0); %Lymphocytes 17.5 % (21.0-51.0); %Monocytes 10.2 % (0.0-10.0); %Neutrophils 71.2 % (42.0-75.0); Hemoglobin 7.5 g/dL (12.0-16.0); Mean Corpuscular HGB CONC 32.4 g/dL (32.0-36.0); Mean Corpuscular Hemoglobin 31.7 pg (27.0-31.0); Mean Corpuscular Volume 97.9 fL (78.0-98.0); Mean Platelet Volume 6.5 fL (7.4-10.4); Platelet Count 278 thou/uL (130-400); RBC Distribution Width 13.5 % (11.5-14.5); Red Blood Cell (RBC) Count 2.38 mill/uL (4.20-5.40); White Blood Cell (WBC) Count 9.6 thou/uL (4.8-10.8)
[2021-11-13 06:17] LABS: Iron 20 ug/dL (50-170); Iron Binding Capacity, Total 153 mcg/dL (265-497); Phosphorus 5.1 mg/dL (2.3-4.7)
[2021-11-13 06:18] LABS: Anion Gap 15 mmol/L (10-20); BUN (Urea Nitrogen) 42 mg/dL (9.8-20.1); Calc. Creatinine Clearance 35 mL/min (70-130); Calcium 8.4 mg/dL (7.8-10.44); Carbon Dioxide 23 mmol/L (22-29); Chloride 102 mmol/L (98-107); Glucose 178 mg/dL (70-105); Iron 21 ug/dL (50-170); Iron Binding Capacity, Total 146 mcg/dL (265-497); Magnesium 1.9 mg/dL (1.6-2.6); Potassium 5.2 mmol/L (3.5-5.1); Sodium 135 mmol/L (136-145)
[2021-11-13] MEDS ORDERED: Spironolactone 25 MG TAB PO SCH (08:00)
[2021-11-13] MEDS ORDERED: Ferrous Sulfate 325 MG TAB PO SCH (08:00)
[2021-11-13] MEDS: Atorvastatin Calcium 40 MG TAB PO SCH (08:26)
[2021-11-13] MEDS: Ezetimibe 10 MG TAB PO SCH (08:26)
[2021-11-13] MEDS: Gabapentin 300 MG CAP PO SCH ×2 (08:26→20:30)
[2021-11-13] MEDS: Insulin Glargine 30 UNITS/0.3 ML VIAL SC SCH ×2 (08:27→21:10)
[2021-11-13] MEDS: Clopidogrel Bisulfate 75 MG TAB PO SCH (08:27)
[2021-11-13] MEDS: Heparin 5,000 UNITS/ML VIAL SC SCH ×2 (08:27→20:30)
[2021-11-13] MEDS: Carvedilol 25 MG TAB PO SCH ×3 (08:27→20:32)
[2021-11-13] MEDS: Famotidine 20 MG TAB PO SCH (09:54)
[2021-11-13] MEDS ORDERED: Furosemide 40 MG/4 ML VIAL IVP SCH (11:30)
[2021-11-13] MEDS: HumaLOG 300 UNITS/3 ML VIAL SC PRN (11:42)
[2021-11-13] MEDS ORDERED: IRON SUCROSE COMPLEX 100 MG/5 ML SLOW IVP SCH (12:45)
[2021-11-13] MEDS ORDERED: Iron, Sodium Ferric Gluconate 250 MG in Sodium Chloride 0.9% 250 ML 250 ML IVPB SCH (14:00)
[2021-11-13] MEDS: Acetaminophen/Codeine 30-300mg Tablet PO PRN (14:56)
[2021-11-13 19:28] LABS: Creatinine, Urine 32.94 mg/dL (47-110)
[2021-11-13] MEDS: Iron, Sodium Ferric Gluconate 250 MG in Sodium Chloride 0.9% 250 ML 250 ML IVPB SCH (20:29)
[2021-11-13 21:35] LABS: Vancomycin, Trough 21.6 ug/mL
[2021-11-14] MEDS: Morphine 4 MG/ML VIAL SLOW IVP PRN ×3 (02:58→17:53)
[2021-11-14] MEDS: Piperacillin/Tazobactam 3.375 GM in Sodium Chloride 0.9% 100 ML IVPB SCH ×3 (06:10→22:18)
[2021-11-14 06:16] LABS: #Eosinphils 0.1 thou/uL (0.0-0.7); #Lymphocytes 1.6 thou/uL (1.20-3.40); #Monocytes 0.8 thou/uL (0.11-0.59); #Neutrophils 5.6 thou/uL (1.40-6.50); %Basophils 0.1 % (0.0-1.0); %Lymphocytes 19.6 % (21.0-51.0); %Monocytes 10.3 % (0.0-10.0); %Neutrophils 68.9 % (42.0-75.0); Hemoglobin 7.7 g/dL (12.0-16.0); Mean Corpuscular HGB CONC 32.2 g/dL (32.0-36.0); Mean Corpuscular Hemoglobin 31.7 pg (27.0-31.0); Mean Corpuscular Volume 98.6 fL (78.0-98.0); Platelet Count 281 thou/uL (130-400); RBC Distribution Width 13.3 % (11.5-14.5); Red Blood Cell (RBC) Count 2.42 mill/uL (4.20-5.40); White Blood Cell (WBC) Count 8.1 thou/uL (4.8-10.8)
[2021-11-14 06:33] LABS: Phosphorus 5.8 mg/dL (2.3-4.7)
[2021-11-14 06:35] LABS: Anion Gap 15 mmol/L (10-20); BUN (Urea Nitrogen) 50 mg/dL (9.8-20.1); Calc. Creatinine Clearance 33 mL/min (70-130); Calcium 8.5 mg/dL (7.8-10.44); Carbon Dioxide 24 mmol/L (22-29); Chloride 103 mmol/L (98-107); Glucose 147 mg/dL (70-105); Potassium 4.7 mmol/L (3.5-5.1); Sodium 137 mmol/L (136-145)
[2021-11-14 09:12] LABS: Vancomycin, Random 17.7 ug/mL (See Comment)
[2021-11-14] MEDS: Gabapentin 300 MG CAP PO SCH ×2 (09:26→20:42)
[2021-11-14] MEDS: Atorvastatin Calcium 40 MG TAB PO SCH (09:26)
[2021-11-14] MEDS: Carvedilol 25 MG TAB PO SCH ×2 (09:26→20:42)
[2021-11-14] MEDS: Ezetimibe 10 MG TAB PO SCH (09:28)
[2021-11-14] MEDS: Clopidogrel Bisulfate 75 MG TAB PO SCH (09:28)
[2021-11-14] MEDS: Famotidine 20 MG TAB PO SCH (09:28)
[2021-11-14] MEDS: Heparin 5,000 UNITS/ML VIAL SC SCH ×2 (09:29→20:42)
[2021-11-14] MEDS: Insulin Glargine 30 UNITS/0.3 ML VIAL SC SCH ×2 (09:30→20:43)
[2021-11-14] MEDS: Acetaminophen/Codeine 30-300mg Tablet PO PRN ×2 (09:39→20:41)
[2021-11-14] MEDS ORDERED: VANCOMYCIN HCL IVPB SCH ×2 (10:00→13:15)
[2021-11-14] MEDS ORDERED: SODIUM CHLORIDE IVPB SCH ×2 (10:00→13:15)
[2021-11-14] MEDS ORDERED: ADMIXTURE FEE IVPB SCH ×2 (10:00→13:15)
[2021-11-14] MEDS ORDERED: Furosemide 40 MG/4 ML VIAL IVP SCH (11:45)
[2021-11-14] MEDS ORDERED: EPINEPHrine 1 MG/ML AMP IVP PRN (11:45)
[2021-11-14] MEDS: Sevelamer Carbonate 800 MG TAB PO SCH ×2 (12:39→17:39)
[2021-11-14] MEDS ORDERED: Vancomycin HCl 500 MG in Sodium Chloride 0.9% 100 ML IVPB SCH (13:15)
[2021-11-14] MEDS: HumaLOG 300 UNITS/3 ML VIAL SC PRN (17:39)
[2021-11-14] MEDS ORDERED: Artificial Tear Sol 15 ML BOT EA EYE PRN (18:59)
[2021-11-14] MEDS ORDERED: Morphine IR Tab 15 MG TAB PO PRN (19:38)
[2021-11-15] MEDS: Morphine 4 MG/ML VIAL SLOW IVP PRN ×3 (02:03→19:36)
[2021-11-15] MEDS: Piperacillin/Tazobactam 3.375 GM in Sodium Chloride 0.9% 100 ML IVPB SCH ×3 (05:14→22:36)
[2021-11-15 05:53] LABS: #Eosinphils 0.1 thou/uL (0.0-0.7); #Lymphocytes 1.7 thou/uL (1.20-3.40); #Monocytes 0.9 thou/uL (0.11-0.59); #Neutrophils 6.6 thou/uL (1.40-6.50); %Basophils 0.1 % (0.0-1.0); %Eosinophils 0.9 % (0.0-10.0); %Monocytes 9.3 % (0.0-10.0); %Neutrophils 71.6 % (42.0-75.0); Hemoglobin 8.4 g/dL (12.0-16.0); Mean Corpuscular HGB CONC 32.7 g/dL (32.0-36.0); Mean Corpuscular Hemoglobin 31.9 pg (27.0-31.0); Mean Corpuscular Volume 97.6 fL (78.0-98.0); Mean Platelet Volume 6.8 fL (7.4-10.4); Platelet Count 294 thou/uL (130-400); RBC Distribution Width 13.6 % (11.5-14.5); Red Blood Cell (RBC) Count 2.63 mill/uL (4.20-5.40); White Blood Cell (WBC) Count 9.3 thou/uL (4.8-10.8)
[2021-11-15 06:19] LABS: Anion Gap 16 mmol/L (10-20); BUN (Urea Nitrogen) 48 mg/dL (9.8-20.1); Calc. Creatinine Clearance 33 mL/min (70-130); Calcium 8.7 mg/dL (7.8-10.44); Carbon Dioxide 22 mmol/L (22-29); Chloride 102 mmol/L (98-107); Glucose 64 mg/dL (70-105); Potassium 4.5 mmol/L (3.5-5.1); Sodium 135 mmol/L (136-145)
[2021-11-15] MEDS: Sevelamer Carbonate 800 MG TAB PO SCH ×4 (09:59→16:53)
[2021-11-15] MEDS: Gabapentin 300 MG CAP PO SCH ×2 (11:22→21:04)
[2021-11-15] MEDS: Heparin 5,000 UNITS/ML VIAL SC SCH ×2 (11:22→21:03)
[2021-11-15] MEDS: Polyethylene Glycol 3350 17 GM Packet PO SCH (11:22)
[2021-11-15] MEDS: Famotidine 20 MG TAB PO SCH (11:23)
[2021-11-15] MEDS: Atorvastatin Calcium 40 MG TAB PO SCH (11:23)
[2021-11-15] MEDS: Carvedilol 25 MG TAB PO SCH ×2 (11:23→21:03)
[2021-11-15] MEDS: Clopidogrel Bisulfate 75 MG TAB PO SCH (11:23)
[2021-11-15] MEDS: Insulin Glargine 30 UNITS/0.3 ML VIAL SC SCH ×2 (11:24→22:37)
[2021-11-15] MEDS: Ezetimibe 10 MG TAB PO SCH (11:24)
[2021-11-15 13:45] LABS: Vancomycin, Random 17.2 ug/mL (See Comment)
[2021-11-15] MEDS: Acetaminophen/Codeine 30-300mg Tablet PO PRN (14:25)
[2021-11-15] MEDS ORDERED: Vancomycin HCl 500 MG in Sodium Chloride 0.9% 100 ML IVPB SCH (16:00)
[2021-11-15] MEDS: Iron, Sodium Ferric Gluconate 250 MG in Sodium Chloride 0.9% 250 ML 250 ML IVPB SCH (19:33)
[2021-11-16] MEDS: Piperacillin/Tazobactam 3.375 GM in Sodium Chloride 0.9% 100 ML IVPB SCH ×3 (05:51→21:51)
[2021-11-16] MEDS: Sevelamer Carbonate 800 MG TAB PO SCH ×3 (09:30→16:04)
[2021-11-16] MEDS: Heparin 5,000 UNITS/ML VIAL SC SCH ×2 (09:38→20:26)
[2021-11-16] MEDS: Clopidogrel Bisulfate 75 MG TAB PO SCH (09:38)
[2021-11-16] MEDS: Carvedilol 25 MG TAB PO SCH ×2 (09:38→20:26)
[2021-11-16] MEDS: Atorvastatin Calcium 40 MG TAB PO SCH (09:38)
[2021-11-16] MEDS: Gabapentin 300 MG CAP PO SCH ×2 (09:38→20:26)
[2021-11-16] MEDS: Ezetimibe 10 MG TAB PO SCH (09:38)
[2021-11-16] MEDS: Famotidine 20 MG TAB PO SCH (09:38)
[2021-11-16] MEDS: Insulin Glargine 30 UNITS/0.3 ML VIAL SC SCH ×2 (09:39→21:50)
[2021-11-16] MEDS: Polyethylene Glycol 3350 17 GM Packet PO SCH (09:39)
[2021-11-16] MEDS: Morphine 4 MG/ML VIAL SLOW IVP PRN (09:44)
[2021-11-16] MEDS: Dextrose 10% in Water 1,000 ML IV SCH (09:47)
[2021-11-16 16:54] LABS: Vancomycin, Trough 17.3 ug/mL
[2021-11-16] MEDS ORDERED: Vancomycin HCl 500 MG in Sodium Chloride 0.9% 100 ML IVPB SCH (18:00)
[2021-11-17] MEDS: Dextrose 10% in Water 1,000 ML IV SCH ×2 (02:35→21:29)
[2021-11-17] MEDS: Piperacillin/Tazobactam 3.375 GM in Sodium Chloride 0.9% 100 ML IVPB SCH ×3 (06:02→21:25)
[2021-11-17 06:28] LABS: #Eosinphils 0.1 thou/uL (0.0-0.7); #Lymphocytes 1.7 thou/uL (1.20-3.40); #Monocytes 0.9 thou/uL (0.11-0.59); #Neutrophils 5.2 thou/uL (1.40-6.50); %Basophils 0.3 % (0.0-1.0); %Eosinophils 1.6 % (0.0-10.0); %Lymphocytes 21.1 % (21.0-51.0); %Monocytes 10.8 % (0.0-10.0); %Neutrophils 66.2 % (42.0-75.0); Hemoglobin 7.8 g/dL (12.0-16.0); Mean Corpuscular Hemoglobin 32.6 pg (27.0-31.0); Mean Corpuscular Volume 98.8 fL (78.0-98.0); Mean Platelet Volume 6.9 fL (7.4-10.4); Platelet Count 271 thou/uL (130-400); RBC Distribution Width 13.3 % (11.5-14.5); Red Blood Cell (RBC) Count 2.41 mill/uL (4.20-5.40); White Blood Cell (WBC) Count 7.8 thou/uL (4.8-10.8)
[2021-11-17 06:53] LABS: ALT (SGPT) Less than 7 U/L (8-55); AST (SGOT) 8 U/L (5-34); Albumin 2.9 g/dL (3.5-5.0); Alkaline Phosphatase 78 U/L (40-110); Anion Gap 15 mmol/L (10-20); BUN (Urea Nitrogen) 47 mg/dL (9.8-20.1); Bilirubin, Total 0.3 mg/dL (0.2-1.2); Calc. Creatinine Clearance 32 mL/min (70-130); Calcium 8.4 mg/dL (7.8-10.44); Carbon Dioxide 23 mmol/L (22-29); Chloride 102 mmol/L (98-107); Globulin 3.3 g/dL (2.4-3.5); Glucose 138 mg/dL (70-105); Magnesium 2.5 mg/dL (1.6-2.6); Phosphorus 4.9 mg/dL (2.3-4.7); Potassium 4.7 mmol/L (3.5-5.1); Protein, Total 6.2 g/dL (6.0-8.3); Sodium 135 mmol/L (136-145)
[2021-11-17] MEDS: Sevelamer Carbonate 800 MG TAB PO SCH ×3 (08:39→18:04)
[2021-11-17] MEDS: Heparin 5,000 UNITS/ML VIAL SC SCH ×2 (09:06→20:34)
[2021-11-17] MEDS: Famotidine 20 MG TAB PO SCH (09:06)
[2021-11-17] MEDS: Gabapentin 300 MG CAP PO SCH ×2 (09:06→20:14)
[2021-11-17] MEDS: Clopidogrel Bisulfate 75 MG TAB PO SCH (09:06)
[2021-11-17] MEDS: Ezetimibe 10 MG TAB PO SCH (09:06)
[2021-11-17] MEDS: Atorvastatin Calcium 40 MG TAB PO SCH (09:06)
[2021-11-17] MEDS: Polyethylene Glycol 3350 17 GM Packet PO SCH (09:06)
[2021-11-17] MEDS: Carvedilol 25 MG TAB PO SCH ×2 (09:06→20:16)
[2021-11-17] MEDS: Insulin Glargine 30 UNITS/0.3 ML VIAL SC SCH (09:07)
[2021-11-17] MEDS: Morphine 4 MG/ML VIAL SLOW IVP PRN ×4 (11:06→21:24)
[2021-11-17 18:24] LABS: Vancomycin, Random 17.5 ug/mL (See Comment)
[2021-11-17] MEDS: Iron, Sodium Ferric Gluconate 250 MG in Sodium Chloride 0.9% 250 ML 250 ML IVPB SCH (18:43)
[2021-11-17] MEDS: Acetaminophen/Codeine 30-300mg Tablet PO PRN (20:16)
[2021-11-17] MEDS: Vancomycin HCl 500 MG in Sodium Chloride 0.9% 100 ML IVPB SCH (20:35)
[2021-11-17] MEDS: HumaLOG 300 UNITS/3 ML VIAL SC PRN (20:39)
[2021-11-17] MEDS ORDERED: Insulin Glargine 30 UNITS/0.3 ML VIAL SC SCH (21:00)
[2021-11-18] MEDS: Morphine 4 MG/ML VIAL SLOW IVP PRN ×4 (04:27→20:54)
[2021-11-18 04:51] LABS: ALT (SGPT) Less than 7 U/L (8-55); AST (SGOT) 8 U/L (5-34); Albumin 2.8 g/dL (3.5-5.0); Alkaline Phosphatase 79 U/L (40-110); Anion Gap 13 mmol/L (10-20); BUN (Urea Nitrogen) 46 mg/dL (9.8-20.1); Bilirubin, Total 0.2 mg/dL (0.2-1.2); Calc. Creatinine Clearance 31 mL/min (70-130); Calcium 8.3 mg/dL (7.8-10.44); Carbon Dioxide 24 mmol/L (22-29); Chloride 102 mmol/L (98-107); Globulin 3.1 g/dL (2.4-3.5); Glucose 125 mg/dL (70-105); Potassium 4.8 mmol/L (3.5-5.1); Protein, Total 5.9 g/dL (6.0-8.3); Sodium 134 mmol/L (136-145)
[2021-11-18 04:52] LABS: #Eosinphils 0.1 thou/uL (0.0-0.7); #Lymphocytes 1.7 thou/uL (1.20-3.40); #Monocytes 0.7 thou/uL (0.11-0.59); #Neutrophils 4.9 thou/uL (1.40-6.50); %Basophils 0.3 % (0.0-1.0); %Eosinophils 1.5 % (0.0-10.0); %Lymphocytes 22.9 % (21.0-51.0); %Monocytes 9.9 % (0.0-10.0); %Neutrophils 65.3 % (42.0-75.0); Hemoglobin 7.1 g/dL (12.0-16.0); Mean Corpuscular HGB CONC 31.9 g/dL (32.0-36.0); Mean Corpuscular Hemoglobin 31.5 pg (27.0-31.0); Mean Platelet Volume 7.3 fL (7.4-10.4); Platelet Count 274 thou/uL (130-400); RBC Distribution Width 13.3 % (11.5-14.5); Red Blood Cell (RBC) Count 2.23 mill/uL (4.20-5.40); White Blood Cell (WBC) Count 7.4 thou/uL (4.8-10.8)
[2021-11-18] MEDS: Piperacillin/Tazobactam 3.375 GM in Sodium Chloride 0.9% 100 ML IVPB SCH ×3 (05:46→22:11)
[2021-11-18] MEDS: Carvedilol 25 MG TAB PO SCH ×2 (08:30→20:49)
[2021-11-18] MEDS: Sevelamer Carbonate 800 MG TAB PO SCH ×3 (08:46→16:21)
[2021-11-18] MEDS: Clopidogrel Bisulfate 75 MG TAB PO SCH (08:47)
[2021-11-18] MEDS: Atorvastatin Calcium 40 MG TAB PO SCH (08:47)
[2021-11-18] MEDS: Ezetimibe 10 MG TAB PO SCH (08:48)
[2021-11-18] MEDS: Insulin Glargine 30 UNITS/0.3 ML VIAL SC SCH (08:48)
[2021-11-18] MEDS: Famotidine 20 MG TAB PO SCH (08:48)
[2021-11-18] MEDS: Polyethylene Glycol 3350 17 GM Packet PO SCH (08:48)
[2021-11-18] MEDS: Gabapentin 300 MG CAP PO SCH ×2 (08:48→20:50)
[2021-11-18] MEDS: Heparin 5,000 UNITS/ML VIAL SC SCH ×2 (08:48→20:50)
[2021-11-18] MEDS ORDERED: Midazolam HCl 2 mg/2 ml Vial ONE (09:19)
[2021-11-18] MEDS ORDERED: Fentanyl 250 MCG/5 ML VIAL ONE (09:19)
[2021-11-18] MEDS ORDERED: EPINEPHrine 1 MG/ML AMP ONE (09:27)
[2021-11-18] MEDS ORDERED: Heparin 5,000 UNITS/ML VIAL ONE (09:27)
[2021-11-18] MEDS ORDERED: Bupivacaine 0.25% HCL 30 ML VIAL ONE (09:27)
[2021-11-18] MEDS ORDERED: Nitroglycerin 50 MG/250 ML BOT 0 ML ONE (09:38)
[2021-11-18] MEDS ORDERED: ePHEDrine 50 MG/ML VIAL ONE (10:30)
[2021-11-18] MEDS ORDERED: Rocuronium Bromide 10 MG/ML (10ML VIAL) ONE (10:30)
[2021-11-18] MEDS ORDERED: Lidocaine 1% PF 5 ML VIAL ONE (10:30)
[2021-11-18] MEDS ORDERED: PROPOFOL 200 MG/20 ML VIAL ONE (10:30)
[2021-11-18] MEDS ORDERED: Glycopyrrolate 0.2 MG/ML 5 ML SYRINGE ONE (10:30)
[2021-11-18 12:08] LABS: SARS-CoV-2 PCR by NAA Not Detected (NotDetected)
[2021-11-18] MEDS ORDERED: Protamine Sulfate 50 MG/5 ML VIAL ONE (12:24)
[2021-11-18] MEDS ORDERED: SUGAMMADEX SODIUM 200 MG/2 ML VIAL ONE (14:05)
[2021-11-18] MEDS ORDERED: Fentanyl 100 MCG/2 ML VIAL ONE (14:35)
[2021-11-18] MEDS: Acetaminophen/Codeine 30-300mg Tablet PO PRN (15:31)
[2021-11-18] MEDS: Lactated Ringer's 1,000 ML IV SCH (15:32)
[2021-11-18] MEDS ORDERED: Morphine 4 MG/ML VIAL SLOW IVP PRN ×4 (17:14→19:00)
[2021-11-18] MEDS ORDERED: Naloxone HCl 0.4 mg/ml Vial IV PRN (17:16)
[2021-11-18] MEDS ORDERED: Acetaminophen/Codeine 30-300mg Tablet PO PRN (17:20)
[2021-11-18] MEDS ORDERED: Fentanyl 100 MCG/2 ML VIAL SLOW IVP SCH (17:30)
[2021-11-18] MEDS: Vancomycin HCl 500 MG in Sodium Chloride 0.9% 100 ML IVPB SCH (19:35)
[2021-11-19] MEDS: Piperacillin/Tazobactam 3.375 GM in Sodium Chloride 0.9% 100 ML IVPB SCH ×3 (05:37→23:13)
[2021-11-19] MEDS: Morphine 4 MG/ML VIAL SLOW IVP PRN ×2 (05:41→20:49)
[2021-11-19] MEDS: Lactated Ringer's 1,000 ML IV SCH (05:44)
[2021-11-19 08:56] LABS: #Eosinphils 0.1 thou/uL (0.0-0.7); #Lymphocytes 1.2 thou/uL (1.20-3.40); #Monocytes 0.9 thou/uL (0.11-0.59); #Neutrophils 7.9 thou/uL (1.40-6.50); %Basophils 0.2 % (0.0-1.0); %Eosinophils 0.9 % (0.0-10.0); %Lymphocytes 12.2 % (21.0-51.0); %Monocytes 8.9 % (0.0-10.0); %Neutrophils 77.7 % (42.0-75.0); Hemoglobin 8.5 g/dL (12.0-16.0); Mean Corpuscular Hemoglobin 31.5 pg (27.0-31.0); Mean Corpuscular Volume 98.5 fL (78.0-98.0); Mean Platelet Volume 7.2 fL (7.4-10.4); Platelet Count 304 thou/uL (130-400); RBC Distribution Width 13.3 % (11.5-14.5); White Blood Cell (WBC) Count 10.2 thou/uL (4.8-10.8)
[2021-11-19 09:12] LABS: ALT (SGPT) Less than 7 U/L (8-55); AST (SGOT) 9 U/L (5-34); Alkaline Phosphatase 69 U/L (40-110); Anion Gap 15 mmol/L (10-20); BUN (Urea Nitrogen) 41 mg/dL (9.8-20.1); Bilirubin, Total 0.4 mg/dL (0.2-1.2); Calc. Creatinine Clearance 36 mL/min (70-130); Calcium 8.8 mg/dL (7.8-10.44); Carbon Dioxide 21 mmol/L (22-29); Chloride 104 mmol/L (98-107); Globulin 3.6 g/dL (2.4-3.5); Glucose 103 mg/dL (70-105); Potassium 5.6 mmol/L (3.5-5.1); Protein, Total 6.6 g/dL (6.0-8.3); Sodium 134 mmol/L (136-145)
[2021-11-19] MEDS: Sevelamer Carbonate 800 MG TAB PO SCH ×3 (09:13→15:56)
[2021-11-19] MEDS: Polyethylene Glycol 3350 17 GM Packet PO SCH (09:14)
[2021-11-19] MEDS: Gabapentin 300 MG CAP PO SCH ×2 (09:15→20:44)
[2021-11-19] MEDS: Atorvastatin Calcium 40 MG TAB PO SCH (09:16)
[2021-11-19] MEDS: Ergocalciferol 1.25 MG(50,000 UNITS) CAP PO SCH (09:16)
[2021-11-19] MEDS: Insulin Glargine 30 UNITS/0.3 ML VIAL SC SCH (09:19)
[2021-11-19] MEDS: Carvedilol 25 MG TAB PO SCH ×2 (09:20→20:44)
[2021-11-19] MEDS: Clopidogrel Bisulfate 75 MG TAB PO SCH (09:20)
[2021-11-19] MEDS: Ezetimibe 10 MG TAB PO SCH (09:20)
[2021-11-19] MEDS: Heparin 5,000 UNITS/ML VIAL SC SCH ×2 (09:20→20:43)
[2021-11-19] MEDS: Famotidine 20 MG TAB PO SCH (09:21)
[2021-11-19 11:52] LABS: Anion Gap 17 mmol/L (10-20); BUN (Urea Nitrogen) 40 mg/dL (9.8-20.1); Calc. Creatinine Clearance 37 mL/min (70-130); Calcium 8.5 mg/dL (7.8-10.44); Carbon Dioxide 19 mmol/L (22-29); Chloride 104 mmol/L (98-107); Glucose 129 mg/dL (70-105); Potassium 5.6 mmol/L (3.5-5.1); Sodium 134 mmol/L (136-145)
[2021-11-19] MEDS: HYDROcodone/Acetaminophen 5/325 mg Tablet PO PRN ×3 (13:00→23:14)
[2021-11-19] MEDS: Morphine 2 MG/ML VIAL SLOW IVP PRN (15:47)
[2021-11-19 17:25] LABS: Anion Gap 15 mmol/L (10-20); BUN (Urea Nitrogen) 39 mg/dL (9.8-20.1); Calc. Creatinine Clearance 38 mL/min (70-130); Calcium 8.7 mg/dL (7.8-10.44); Carbon Dioxide 20 mmol/L (22-29); Chloride 104 mmol/L (98-107); Glucose 148 mg/dL (70-105); Potassium 5.5 mmol/L (3.5-5.1); Sodium 133 mmol/L (136-145)
[2021-11-19] MEDS: Iron, Sodium Ferric Gluconate 250 MG in Sodium Chloride 0.9% 250 ML 250 ML IVPB SCH (18:28)
[2021-11-19 19:19] LABS: Vancomycin, Trough 19.9 ug/mL
[2021-11-19] MEDS: Vancomycin HCl 500 MG in Sodium Chloride 0.9% 100 ML IVPB SCH (20:43)
[2021-11-19 23:22] LABS: Anion Gap 14 mmol/L (10-20); BUN (Urea Nitrogen) 42 mg/dL (9.8-20.1); Calc. Creatinine Clearance 38 mL/min (70-130); Calcium 8.4 mg/dL (7.8-10.44); Carbon Dioxide 23 mmol/L (22-29); Chloride 102 mmol/L (98-107); Glucose 163 mg/dL (70-105); Sodium 134 mmol/L (136-145)
[2021-11-20] MEDS: HYDROcodone/Acetaminophen 5/325 mg Tablet PO PRN ×5 (03:39→21:31)
[2021-11-20] MEDS: Piperacillin/Tazobactam 3.375 GM in Sodium Chloride 0.9% 100 ML IVPB SCH ×3 (06:08→21:32)
[2021-11-20] MEDS: Gabapentin 300 MG CAP PO SCH ×2 (08:37→21:32)
[2021-11-20] MEDS: Heparin 5,000 UNITS/ML VIAL SC SCH ×2 (08:37→21:32)
[2021-11-20] MEDS: Insulin Glargine 30 UNITS/0.3 ML VIAL SC SCH (08:38)
[2021-11-20] MEDS: Famotidine 20 MG TAB PO SCH (08:39)
[2021-11-20] MEDS: Ezetimibe 10 MG TAB PO SCH (08:39)
[2021-11-20] MEDS: Atorvastatin Calcium 40 MG TAB PO SCH (08:39)
[2021-11-20] MEDS: Clopidogrel Bisulfate 75 MG TAB PO SCH (08:39)
[2021-11-20] MEDS: Carvedilol 25 MG TAB PO SCH ×2 (08:39→21:32)
[2021-11-20] MEDS: Polyethylene Glycol 3350 17 GM Packet PO SCH (08:39)
[2021-11-20] MEDS: Sevelamer Carbonate 800 MG TAB PO SCH ×3 (09:11→17:52)
[2021-11-20] MEDS: Morphine 2 MG/ML VIAL SLOW IVP PRN ×2 (09:46→19:01)
[2021-11-20] MEDS: HumaLOG 300 UNITS/3 ML VIAL SC PRN ×2 (11:38→17:49)
[2021-11-20] MEDS ORDERED: hydrALAZINE 20 MG/ML VIAL SLOW IVP PRN (12:43)
[2021-11-20 13:21] LABS: Anion Gap 15 mmol/L (10-20); BUN (Urea Nitrogen) 43 mg/dL (9.8-20.1); Calc. Creatinine Clearance 44 mL/min (70-130); Calcium 8.8 mg/dL (7.8-10.44); Carbon Dioxide 23 mmol/L (22-29); Chloride 102 mmol/L (98-107); Glucose 183 mg/dL (70-105); Potassium 4.6 mmol/L (3.5-5.1); Sodium 135 mmol/L (136-145)
[2021-11-20] MEDS ORDERED: Epoetin (ESRD) 10,000 UNITS/ML VIAL SC SCH (17:00)
[2021-11-20] MEDS ORDERED: Epoetin (ESRD) 20,000 UNITS/ML SC SCH (17:45)
[2021-11-20] MEDS: Vancomycin HCl 500 MG in Sodium Chloride 0.9% 100 ML IVPB SCH (21:50)
[2021-11-21] MEDS: Morphine 2 MG/ML VIAL SLOW IVP PRN ×2 (01:35→15:02)
[2021-11-21] MEDS: Piperacillin/Tazobactam 3.375 GM in Sodium Chloride 0.9% 100 ML IVPB SCH ×3 (06:16→21:58)
[2021-11-21] MEDS: Insulin Glargine 30 UNITS/0.3 ML VIAL SC SCH (08:47)
[2021-11-21] MEDS: Polyethylene Glycol 3350 17 GM Packet PO SCH (08:47)
[2021-11-21] MEDS: Heparin 5,000 UNITS/ML VIAL SC SCH ×2 (08:47→20:12)
[2021-11-21] MEDS: Ezetimibe 10 MG TAB PO SCH (08:48)
[2021-11-21] MEDS: Sevelamer Carbonate 800 MG TAB PO SCH ×2 (08:48→13:33)
[2021-11-21] MEDS: Gabapentin 300 MG CAP PO SCH ×2 (08:48→20:11)
[2021-11-21] MEDS: Carvedilol 25 MG TAB PO SCH ×2 (08:49→20:12)
[2021-11-21] MEDS: Famotidine 20 MG TAB PO SCH (08:49)
[2021-11-21] MEDS: HYDROcodone/Acetaminophen 5/325 mg Tablet PO PRN (08:50)
[2021-11-21] MEDS: Atorvastatin Calcium 40 MG TAB PO SCH (08:50)
[2021-11-21] MEDS: Clopidogrel Bisulfate 75 MG TAB PO SCH (08:50)
[2021-11-21] MEDS ORDERED: Activase 2 MG VIAL CATH SCH (15:15)
[2021-11-21] MEDS: HumaLOG 300 UNITS/3 ML VIAL SC PRN (17:12)
[2021-11-21] MEDS: Iron, Sodium Ferric Gluconate 250 MG in Sodium Chloride 0.9% 250 ML 250 ML IVPB SCH (18:07)
[2021-11-21 19:14] LABS: Vancomycin, Trough 17.5 ug/mL
[2021-11-21] MEDS: Vancomycin HCl 500 MG in Sodium Chloride 0.9% 100 ML IVPB SCH (20:11)
[2021-11-21] MEDS: Morphine 4 MG/ML VIAL SLOW IVP PRN (20:29)
[2021-11-22] MEDS: Piperacillin/Tazobactam 3.375 GM in Sodium Chloride 0.9% 100 ML IVPB SCH ×2 (05:49→14:19)
[2021-11-22] MEDS: Polyethylene Glycol 3350 17 GM Packet PO SCH (09:08)
[2021-11-22] MEDS: Gabapentin 300 MG CAP PO SCH ×2 (09:08→21:52)
[2021-11-22] MEDS: Ezetimibe 10 MG TAB PO SCH (09:09)
[2021-11-22] MEDS: Carvedilol 25 MG TAB PO SCH ×2 (09:09→21:53)
[2021-11-22] MEDS: Clopidogrel Bisulfate 75 MG TAB PO SCH (09:10)
[2021-11-22] MEDS: Famotidine 20 MG TAB PO SCH (09:10)
[2021-11-22] MEDS: Atorvastatin Calcium 40 MG TAB PO SCH (09:10)
[2021-11-22] MEDS: Sevelamer Carbonate 800 MG TAB PO SCH ×3 (09:10→17:34)
[2021-11-22] MEDS: Insulin Glargine 30 UNITS/0.3 ML VIAL SC SCH (09:10)
[2021-11-22] MEDS: Heparin 5,000 UNITS/ML VIAL SC SCH ×2 (09:11→21:54)
[2021-11-22 10:37] LABS: Anion Gap 13 mmol/L (10-20); BUN (Urea Nitrogen) 42 mg/dL (9.8-20.1); Calc. Creatinine Clearance 45 mL/min (70-130); Calcium 8.7 mg/dL (7.8-10.44); Carbon Dioxide 23 mmol/L (22-29); Chloride 105 mmol/L (98-107); Glucose 117 mg/dL (70-105); Potassium 4.3 mmol/L (3.5-5.1); Sodium 137 mmol/L (136-145)
[2021-11-22] MEDS: HYDROcodone/Acetaminophen 5/325 mg Tablet PO PRN (14:25)
[2021-11-22] MEDS: cefTRIAXone\\ROCEPHIN 2 GM in Sodium Chloride 0.9% 100 ML IVPB SCH (18:08)
[2021-11-22] MEDS: metroNIDAZOLE 250 MG TAB PO SCH (21:53)
[2021-11-22] MEDS: Morphine 2 MG/ML VIAL SLOW IVP PRN (22:40)
[2021-11-23] MEDS: HYDROcodone/Acetaminophen 5/325 mg Tablet PO PRN ×2 (03:14→14:35)
[2021-11-23 05:58] LABS: Anion Gap 12 mmol/L (10-20); BUN (Urea Nitrogen) 39 mg/dL (9.8-20.1); Calc. Creatinine Clearance 43 mL/min (70-130); Calcium 8.7 mg/dL (7.8-10.44); Carbon Dioxide 24 mmol/L (22-29); Chloride 105 mmol/L (98-107); Glucose 123 mg/dL (70-105); Potassium 4.3 mmol/L (3.5-5.1); Sodium 137 mmol/L (136-145)
[2021-11-23] MEDS: Sevelamer Carbonate 800 MG TAB PO SCH ×3 (08:59→17:55)
[2021-11-23] MEDS: Gabapentin 300 MG CAP PO SCH ×2 (09:01→21:39)
[2021-11-23] MEDS: Atorvastatin Calcium 40 MG TAB PO SCH (09:02)
[2021-11-23] MEDS: Ezetimibe 10 MG TAB PO SCH (09:03)
[2021-11-23] MEDS: Clopidogrel Bisulfate 75 MG TAB PO SCH (09:03)
[2021-11-23] MEDS: Carvedilol 25 MG TAB PO SCH ×2 (09:03→21:39)
[2021-11-23] MEDS: Famotidine 20 MG TAB PO SCH (09:03)
[2021-11-23] MEDS: metroNIDAZOLE 250 MG TAB PO SCH ×2 (09:04→21:39)
[2021-11-23] MEDS: Insulin Glargine 30 UNITS/0.3 ML VIAL SC SCH (09:05)
[2021-11-23] MEDS: Polyethylene Glycol 3350 17 GM Packet PO SCH (09:08)
[2021-11-23] MEDS: Heparin 5,000 UNITS/ML VIAL SC SCH ×2 (09:08→21:40)
[2021-11-23] MEDS: HumaLOG 300 UNITS/3 ML VIAL SC PRN ×3 (11:51→22:13)
[2021-11-23] MEDS: Morphine 4 MG/ML VIAL SLOW IVP PRN (12:27)
[2021-11-23] MEDS: cefTRIAXone\\ROCEPHIN 2 GM in Sodium Chloride 0.9% 100 ML IVPB SCH (17:50)
[2021-11-23] MEDS: Morphine 2 MG/ML VIAL SLOW IVP PRN (21:40)
[2021-11-24] MEDS: HumaLOG 300 UNITS/3 ML VIAL SC PRN ×3 (05:28→16:05)
[2021-11-24] MEDS: Insulin Glargine 30 UNITS/0.3 ML VIAL SC SCH (09:35)
[2021-11-24] MEDS: Ezetimibe 10 MG TAB PO SCH (09:38)
[2021-11-24] MEDS: Gabapentin 300 MG CAP PO SCH ×2 (09:38→20:21)
[2021-11-24] MEDS: Atorvastatin Calcium 40 MG TAB PO SCH (09:38)
[2021-11-24] MEDS: metroNIDAZOLE 250 MG TAB PO SCH ×2 (09:38→20:21)
[2021-11-24] MEDS: Clopidogrel Bisulfate 75 MG TAB PO SCH (09:39)
[2021-11-24] MEDS: Sevelamer Carbonate 800 MG TAB PO SCH ×4 (09:39→16:08)
[2021-11-24] MEDS: Polyethylene Glycol 3350 17 GM Packet PO SCH (09:39)
[2021-11-24] MEDS: Famotidine 20 MG TAB PO SCH (09:39)
[2021-11-24] MEDS: Carvedilol 25 MG TAB PO SCH ×2 (09:39→20:21)
[2021-11-24] MEDS: HYDROcodone/Acetaminophen 5/325 mg Tablet PO PRN ×3 (09:41→20:24)
[2021-11-24] MEDS: Heparin 5,000 UNITS/ML VIAL SC SCH ×2 (09:42→20:22)
[2021-11-24] MEDS: Morphine 2 MG/ML VIAL SLOW IVP PRN (16:03)
[2021-11-24] MEDS: cefTRIAXone\\ROCEPHIN 2 GM in Sodium Chloride 0.9% 100 ML IVPB SCH (16:07)
[2021-11-24 23:45] LABS: SARS-CoV-2 PCR by NAA Not Detected (NotDetected)
[2021-11-25] MEDS: HYDROcodone/Acetaminophen 5/325 mg Tablet PO PRN ×3 (02:27→21:43)
[2021-11-25] MEDS: Morphine 2 MG/ML VIAL SLOW IVP PRN ×2 (04:53→18:00)
[2021-11-25 07:28] LABS: #Eosinphils 0.1 thou/uL (0.0-0.7); #Lymphocytes 1.7 thou/uL (1.20-3.40); #Neutrophils 4.9 thou/uL (1.40-6.50); %Basophils 0.3 % (0.0-1.0); %Eosinophils 1.5 % (0.0-10.0); %Lymphocytes 22.2 % (21.0-51.0); %Monocytes 12.4 % (0.0-10.0); %Neutrophils 63.6 % (42.0-75.0); Hemoglobin 6.7 g/dL (12.0-16.0); Mean Corpuscular HGB CONC 32.9 g/dL (32.0-36.0); Mean Corpuscular Hemoglobin 32.7 pg (27.0-31.0); Mean Corpuscular Volume 99.4 fL (78.0-98.0); Mean Platelet Volume 6.9 fL (7.4-10.4); Platelet Count 271 thou/uL (130-400); RBC Distribution Width 14.4 % (11.5-14.5); Red Blood Cell (RBC) Count 2.05 mill/uL (4.20-5.40); White Blood Cell (WBC) Count 7.8 thou/uL (4.8-10.8)
[2021-11-25 07:39] LABS: Anion Gap 13 mmol/L (10-20); BUN (Urea Nitrogen) 29 mg/dL (9.8-20.1); Calc. Creatinine Clearance 52 mL/min (70-130); Calcium 8.4 mg/dL (7.8-10.44); Carbon Dioxide 22 mmol/L (22-29); Chloride 107 mmol/L (98-107); Glucose 112 mg/dL (70-105); Potassium 4.3 mmol/L (3.5-5.1); Sodium 138 mmol/L (136-145)
[2021-11-25] MEDS: Clopidogrel Bisulfate 75 MG TAB PO SCH (08:24)
[2021-11-25] MEDS: Gabapentin 300 MG CAP PO SCH ×2 (08:24→21:44)
[2021-11-25] MEDS: Ezetimibe 10 MG TAB PO SCH (08:27)
[2021-11-25] MEDS: Atorvastatin Calcium 40 MG TAB PO SCH (08:27)
[2021-11-25] MEDS: Aspirin 81 mg Enteric Coated Tablet PO SCH (08:27)
[2021-11-25] MEDS: Carvedilol 25 MG TAB PO SCH ×2 (08:27→21:44)
[2021-11-25] MEDS: metroNIDAZOLE 250 MG TAB PO SCH ×2 (08:27→21:48)
[2021-11-25] MEDS: Famotidine 20 MG TAB PO SCH (08:27)
[2021-11-25] MEDS: Insulin Glargine 30 UNITS/0.3 ML VIAL SC SCH (08:28)
[2021-11-25] MEDS: Polyethylene Glycol 3350 17 GM Packet PO SCH (08:28)
[2021-11-25] MEDS: Heparin 5,000 UNITS/ML VIAL SC SCH (08:28)
[2021-11-25] MEDS: Sevelamer Carbonate 800 MG TAB PO SCH ×3 (08:53→16:59)
[2021-11-25 11:38] LABS: Hemoglobin 6.7 g/dL (12.0-16.0)
[2021-11-25] MEDS: cefTRIAXone\\ROCEPHIN 2 GM in Sodium Chloride 0.9% 100 ML IVPB SCH (15:45)
[2021-11-25] MEDS: HumaLOG 300 UNITS/3 ML VIAL SC PRN (16:59)
[2021-11-25] MEDS ORDERED: Furosemide 20 MG/2 ML VIAL SLOW IVP SCH (18:00)
[2021-11-26] MEDS: Morphine 2 MG/ML VIAL SLOW IVP PRN ×3 (00:23→10:55)
[2021-11-26] MEDS: HumaLOG 300 UNITS/3 ML VIAL SC PRN ×3 (06:11→16:27)
[2021-11-26 07:28] LABS: #Eosinphils 0.2 thou/uL (0.0-0.7); #Lymphocytes 1.7 thou/uL (1.20-3.40); #Monocytes 0.9 thou/uL (0.11-0.59); #Neutrophils 5.9 thou/uL (1.40-6.50); %Lymphocytes 19.4 % (21.0-51.0); %Monocytes 10.3 % (0.0-10.0); %Neutrophils 68.3 % (42.0-75.0); Hemoglobin 7.4 g/dL (12.0-16.0); Mean Corpuscular HGB CONC 32.9 g/dL (32.0-36.0); Mean Corpuscular Hemoglobin 32.5 pg (27.0-31.0); Mean Corpuscular Volume 98.9 fL (78.0-98.0); Mean Platelet Volume 6.9 fL (7.4-10.4); Platelet Count 294 thou/uL (130-400); RBC Distribution Width 14.4 % (11.5-14.5); Red Blood Cell (RBC) Count 2.29 mill/uL (4.20-5.40); White Blood Cell (WBC) Count 8.7 thou/uL (4.8-10.8)
[2021-11-26 07:46] LABS: Anion Gap 11 mmol/L (10-20); BUN (Urea Nitrogen) 31 mg/dL (9.8-20.1); Calc. Creatinine Clearance 53 mL/min (70-130); Calcium 8.5 mg/dL (7.8-10.44); Carbon Dioxide 24 mmol/L (22-29); Chloride 106 mmol/L (98-107); Glucose 164 mg/dL (70-105); Potassium 4.1 mmol/L (3.5-5.1); Sodium 137 mmol/L (136-145)
[2021-11-26] MEDS ORDERED: Ferrous Sulfate 325 MG TAB PO SCH (08:00)
[2021-11-26] MEDS: Polyethylene Glycol 3350 17 GM Packet PO SCH (09:10)
[2021-11-26] MEDS: Gabapentin 300 MG CAP PO SCH (09:12)
[2021-11-26] MEDS: Aspirin 81 mg Enteric Coated Tablet PO SCH (09:12)
[2021-11-26] MEDS: Clopidogrel Bisulfate 75 MG TAB PO SCH (09:13)
[2021-11-26] MEDS: Ezetimibe 10 MG TAB PO SCH (09:13)
[2021-11-26] MEDS: Sevelamer Carbonate 800 MG TAB PO SCH ×3 (09:13→16:27)
[2021-11-26] MEDS: Insulin Glargine 30 UNITS/0.3 ML VIAL SC SCH (09:13)
[2021-11-26] MEDS: Famotidine 20 MG TAB PO SCH (09:13)
[2021-11-26] MEDS: Carvedilol 25 MG TAB PO SCH (09:13)
[2021-11-26] MEDS: Atorvastatin Calcium 40 MG TAB PO SCH (09:13)
[2021-11-26] MEDS: metroNIDAZOLE 250 MG TAB PO SCH (09:13)
[2021-11-26] MEDS: Ergocalciferol 1.25 MG(50,000 UNITS) CAP PO SCH (09:18)
[2021-11-26] MEDS: cefTRIAXone\\ROCEPHIN 2 GM in Sodium Chloride 0.9% 100 ML IVPB SCH (16:27)
[2021-11-26 16:54] VITALS: BP 177/79; TEMP 97.9
== END 2021-11-26 17:15 | disposition swing bed (61) | DRG 253 ==
LOC: SURG B 16:23 → SJJU 17:13
PROVIDERS: ADMIT Emergency Medicine; ATTEND Internal Medicine
PROC: 30233N1 Transfusion of Nonautologous Red Blood Cells into Peripheral Vein, Percutaneous Approach (ICD-10-PCS; principal; 2021-11-14)
PROC: 02HV33Z Insertion of Infusion Device into Superior Vena Cava, Percutaneous Approach (ICD-10-PCS; 2021-11-15)
PROC: B548ZZA Ultrasonography of Superior Vena Cava, Guidance (ICD-10-PCS; 2021-11-15)
PROC: 04CL0ZZ Extirpation of Matter from Left Femoral Artery, Open Approach (ICD-10-PCS; 2021-11-19)
PROC: 04UL0JZ Supplement Left Femoral Artery with Synthetic Substitute, Open Approach (ICD-10-PCS; 2021-11-19)
DX: E11.52 Type 2 diabetes mellitus with diabetic peripheral angiopathy with gangrene (principal); L97.429 Non-pressure chronic ulcer of left heel and midfoot with unspecified severity; I50.32 Chronic diastolic (congestive) heart failure; I13.0 Hypertensive heart and chronic kidney disease with heart failure and stage 1 through stage 4 chronic kidney disease, or unspecified chronic kidney disease; M86.172 Other acute osteomyelitis, left ankle and foot; I42.8 Other cardiomyopathies; D62 Acute posthemorrhagic anemia; N18.4 Chronic kidney disease, stage 4 (severe); N17.9 Acute kidney failure, unspecified; E87.1 Hypo-osmolality and hyponatremia; E11.69 Type 2 diabetes mellitus with other specified complication; E11.621 Type 2 diabetes mellitus with foot ulcer; E78.5 Hyperlipidemia, unspecified; I25.10 Atherosclerotic heart disease of native coronary artery without angina pectoris; F17.210 Nicotine dependence, cigarettes, uncomplicated; G89.4 Chronic pain syndrome; F32.A Depression, unspecified; E11.22 Type 2 diabetes mellitus with diabetic chronic kidney disease; D63.1 Anemia in chronic kidney disease; M66.872 Spontaneous rupture of other tendons, left ankle and foot; E88.81 Metabolic syndrome and other insulin resistance; E66.01 Morbid (severe) obesity due to excess calories; I77.1 Stricture of artery; Z95.1 Presence of aortocoronary bypass graft; Z88.6 Allergy status to analgesic agent; Z79.899 Other long term (current) drug therapy; Z79.4 Long term (current) use of insulin; Z95.810 Presence of automatic (implantable) cardiac defibrillator; Z79.51 Long term (current) use of inhaled steroids; Z68.33 Body mass index [BMI] 33.0-33.9, adult; E83.39 Other disorders of phosphorus metabolism; E87.5 Hyperkalemia; M79.3 Panniculitis, unspecified; E88.09 Other disorders of plasma-protein metabolism, not elsewhere classified
CPT/HCPCS: 36415; 36416; 36430; 36569; 80048; 80053; 80202; 81001; 82274; 82565; 82570; 82607; 82746; 83540; 83550; 83605; 83735; 83880; 84100; 84156; 85025; 86140; 86850; 86900; 86901; 87070; 87077; 87186; 87205; C1713; C1751; C1776; C1786; J0171; J0360; J0696; J1642; J1644; J1815; J1940; J2250; J2270; J2543; J2704; J2720; J2916; J2997; J3010; J3370; J3490; J7050; J7120; P9016; Q4081; S0020; U0002; U0003; U0005

== ENCOUNTER 2022-04-07 16:59 | Outpatient (CLI) | payer MEDICARE, MEDICAID ==
[2022-04-07 18:34] LABS: #Eosinphils 0.1 10x3/uL (0.0-0.5); #Monocytes 0.8 10x3/uL (0.0-1.1); #Neutrophils 6.7 10x3/uL (1.5-8.4); %Basophils 0.2 % (0.0-2.0); %Eosinophils 1.4 % (0.0-6.0); %Lymphocytes 16.2 % (18.0-47.0); %Monocytes 8.6 % (0.0-10.0); %Neutrophils 73.3 % (40.0-75.0); Hemoglobin 9.1 g/dL (12.0-15.5); Mean Corpuscular HGB CONC 31.8 g/dL (32.0-36.0); Mean Corpuscular Hemoglobin 30.1 pg (27.0-33.0); Mean Corpuscular Volume 94.7 fl (81.6-98.3); Mean Platelet Volume 9.8 fl (7.4-10.4); Platelet Count 330 10x3/uL (150-450); RBC Distribution Width 15.3 % (11.5-14.5); Red Blood Cell (RBC) Count 3.02 10x6/uL (3.90-5.03); White Blood Cell (WBC) Count 9.1 10x3/uL (3.5-10.5)
[2022-04-07 18:45] LABS: Anion Gap 15 mmol/L (10-20); BUN (Urea Nitrogen) 29 mg/dL (9.8-20.1); Calc. Creatinine Clearance 0 mL/min (70-130); Calcium 8.8 mg/dL (7.8-10.44); Carbon Dioxide 27 mmol/L (22-29); Chloride 100 mmol/L (98-107); Estimated GFR 32; Glucose 146 mg/dL (70-105); Potassium 4.3 mmol/L (3.5-5.1); Sodium 138 mmol/L (136-145)
== END 2022-04-07 17:00 | disposition home or self-care (01) ==
LOC: LABBT 16:59
PROVIDERS: ATTEND Surgery
DX: Z01.818 Encounter for other preprocedural examination (principal); Z20.822 Contact with and (suspected) exposure to COVID-19
CPT/HCPCS: 80048; 85025; 87811; 93005; 93010

== ENCOUNTER 2022-04-08 08:14 | Inpatient (IN) | payer MEDICARE, MEDICAID ==
[2022-04-07 15:42] VITALS: BMI 35.0
[2022-04-08] MEDS ORDERED: Midazolam HCl 2 mg/2 ml Vial ONE (10:41)
[2022-04-08] MEDS ORDERED: fentaNYL Citrate/PF 100 MCG/2 ML SYRINGE ONE (10:56)
[2022-04-08] MEDS ORDERED: Bupivacaine/Epinephrine 0.25% 30 ML VIAL ONE (10:57)
[2022-04-08] MEDS ORDERED: Heparin 10,000 UNITS/ 10 ML VIAL ONE (10:57)
[2022-04-08] MEDS ORDERED: Glycopyrrolate 0.2 MG/ML 5 ML SYRINGE ONE (11:17)
[2022-04-08] MEDS ORDERED: Rocuronium Bromide 10 MG/ML (10ML VIAL) ONE (11:17)
[2022-04-08] MEDS ORDERED: Lidocaine 1% MPF 2 ML VIAL ONE (11:17)
[2022-04-08] MEDS ORDERED: NEOSTIGMINE 3 MG/3 ML SYR 3 MG/3 ML SYRINGE ONE (11:17)
[2022-04-08] MEDS ORDERED: diphenhydrAMINE 50 MG/ML VIAL ONE (11:17)
[2022-04-08] MEDS ORDERED: Dexamethasone 20 MG/5 ML VIAL ONE (11:17)
[2022-04-08] MEDS ORDERED: PROPOFOL 200 MG/20 ML VIAL ONE (11:17)
[2022-04-08] MEDS ORDERED: Phenylephrine 10 MG/ML VIAL ONE (11:17)
[2022-04-08] MEDS: Meropenem 1 GM in Sodium Chloride 0.9% 100 ML IVPB SCH ×2 (14:00→22:53)
[2022-04-08] MEDS ORDERED: Torsemide 20 MG TAB PO PRN (15:05)
[2022-04-08] MEDS ORDERED: Ondansetron PF 4 MG/2 ML Vial IVP PRN (15:05)
[2022-04-08] MEDS ORDERED: Acetaminophen 325 MG TAB PO PRN (15:05)
[2022-04-08] MEDS ORDERED: HumaLOG 300 UNITS/3 ML VIAL SC PRN (15:07)
[2022-04-08] MEDS ORDERED: Dextrose 5% in Water 1,000 ML IV PRN (15:07)
[2022-04-08] MEDS ORDERED: Dextrose 50% Abboject 50 ML SYRINGE SLOW IVP PRN (15:07)
[2022-04-08 15:50] LABS: #Monocytes 0.3 thou/uL (0.11-0.59); #Neutrophils 7.2 thou/uL (1.40-6.50); %Basophils 0.1 % (0.0-1.0); %Eosinophils 0.3 % (0.0-10.0); %Lymphocytes 11.8 % (21.0-51.0); %Monocytes 3.5 % (0.0-10.0); %Neutrophils 84.4 % (42.0-75.0); Hemoglobin 8.4 g/dL (12.0-16.0); Mean Corpuscular HGB CONC 32.1 g/dL (32.0-36.0); Mean Corpuscular Hemoglobin 31.1 pg (27.0-31.0); Mean Corpuscular Volume 97.1 fL (78.0-98.0); Mean Platelet Volume 7.5 fL (7.4-10.4); Platelet Count 281 thou/uL (130-400); RBC Distribution Width 14.2 % (11.5-14.5); Red Blood Cell (RBC) Count 2.71 mill/uL (4.20-5.40); White Blood Cell (WBC) Count 8.5 thou/uL (4.8-10.8)
[2022-04-08 16:10] LABS: ALT (SGPT) Less than 7 U/L (8-55); AST (SGOT) 7 U/L (5-34); Albumin 3.1 g/dL (3.5-5.0); Alkaline Phosphatase 118 U/L (40-110); Anion Gap 15 mmol/L (10-20); BUN (Urea Nitrogen) 31 mg/dL (9.8-20.1); Bilirubin, Total Less than 0.2 mg/dL (0.2-1.2); Calc. Creatinine Clearance 46 mL/min (70-130); Calcium 8.3 mg/dL (7.8-10.44); Carbon Dioxide 27 mmol/L (22-29); Chloride 102 mmol/L (98-107); Estimated GFR 29; Globulin 3.4 g/dL (2.4-3.5); Glucose 209 mg/dL (70-105); Protein, Total 6.5 g/dL (6.0-8.3); Sodium 140 mmol/L (136-145)
[2022-04-08] MEDS ORDERED: Albuterol Sulfate 2.5 mg/3 ml Neb NEB PRN (17:01)
[2022-04-08] MEDS: HYDROcodone/Acetaminophen 5/325 mg Tablet PO PRN (18:53)
[2022-04-08] MEDS: Gabapentin 300 MG CAP PO SCH (21:10)
[2022-04-08] MEDS: Atorvastatin Calcium 40 MG TAB PO SCH (21:10)
[2022-04-08] MEDS: Carvedilol 25 MG TAB PO SCH (21:11)
[2022-04-08] MEDS: Insulin Glargine 30 UNITS/0.3 ML VIAL SC SCH (21:11)
[2022-04-08] MEDS: hydrALAZINE 25 MG TAB PO SCH (21:18)
[2022-04-09] MEDS: HYDROcodone/Acetaminophen 5/325 mg Tablet PO PRN ×4 (00:16→20:58)
[2022-04-09] MEDS: Meropenem 1 GM in Sodium Chloride 0.9% 100 ML IVPB SCH ×2 (05:39→16:17)
[2022-04-09] MEDS: HumaLOG 300 UNITS/3 ML VIAL SC PRN ×3 (05:39→18:25)
[2022-04-09 07:46] LABS: #Eosinphils 0.1 thou/uL (0.0-0.7); #Lymphocytes 1.1 thou/uL (1.20-3.40); #Monocytes 0.5 thou/uL (0.11-0.59); #Neutrophils 10.2 thou/uL (1.40-6.50); %Eosinophils 0.6 % (0.0-10.0); %Lymphocytes 9.3 % (21.0-51.0); %Monocytes 4.3 % (0.0-10.0); %Neutrophils 85.9 % (42.0-75.0); Hemoglobin 8.7 g/dL (12.0-16.0); Mean Corpuscular HGB CONC 32.1 g/dL (32.0-36.0); Mean Corpuscular Hemoglobin 31.5 pg (27.0-31.0); Mean Corpuscular Volume 97.9 fL (78.0-98.0); Mean Platelet Volume 8.4 fL (7.4-10.4); Platelet Count 286 thou/uL (130-400); RBC Distribution Width 14.2 % (11.5-14.5); Red Blood Cell (RBC) Count 2.76 mill/uL (4.20-5.40); White Blood Cell (WBC) Count 11.9 thou/uL (4.8-10.8)
[2022-04-09 07:50] LABS: ALT (SGPT) Less than 7 U/L (8-55); AST (SGOT) 9 U/L (5-34); Alkaline Phosphatase 99 U/L (40-110); Anion Gap 19 mmol/L (10-20); BUN (Urea Nitrogen) 33 mg/dL (9.8-20.1); Bilirubin, Total 0.2 mg/dL (0.2-1.2); Calc. Creatinine Clearance 47 mL/min (70-130); Calcium 8.4 mg/dL (7.8-10.44); Carbon Dioxide 24 mmol/L (22-29); Chloride 102 mmol/L (98-107); Estimated GFR 30; Globulin 3.6 g/dL (2.4-3.5); Glucose 235 mg/dL (70-105); Potassium 4.5 mmol/L (3.5-5.1); Protein, Total 6.6 g/dL (6.0-8.3); Sodium 140 mmol/L (136-145)
[2022-04-09] MEDS: Famotidine 20 MG TAB PO SCH (08:53)
[2022-04-09] MEDS: Carvedilol 25 MG TAB PO SCH ×2 (08:53→20:55)
[2022-04-09] MEDS: hydrALAZINE 25 MG TAB PO SCH ×3 (08:53→20:55)
[2022-04-09] MEDS: Spironolactone 25 MG TAB PO SCH (08:53)
[2022-04-09] MEDS: Ezetimibe 10 MG TAB PO SCH (08:53)
[2022-04-09] MEDS: Gabapentin 300 MG CAP PO SCH ×2 (08:53→20:54)
[2022-04-09] MEDS: Atorvastatin Calcium 40 MG TAB PO SCH (20:54)
[2022-04-09] MEDS: Insulin Glargine 30 UNITS/0.3 ML VIAL SC SCH (20:56)
[2022-04-10] MEDS: Meropenem 1 GM in Sodium Chloride 0.9% 100 ML IVPB SCH ×2 (05:59→16:59)
[2022-04-10] MEDS: Spironolactone 25 MG TAB PO SCH (08:28)
[2022-04-10] MEDS: Gabapentin 300 MG CAP PO SCH ×2 (08:28→21:10)
[2022-04-10] MEDS: Ezetimibe 10 MG TAB PO SCH (08:28)
[2022-04-10] MEDS: hydrALAZINE 25 MG TAB PO SCH ×3 (08:29→21:11)
[2022-04-10] MEDS: Carvedilol 25 MG TAB PO SCH ×2 (08:29→21:12)
[2022-04-10] MEDS: Famotidine 20 MG TAB PO SCH (08:29)
[2022-04-10] MEDS: HYDROcodone/Acetaminophen 5/325 mg Tablet PO PRN ×2 (08:34→16:59)
[2022-04-10] MEDS: HumaLOG 300 UNITS/3 ML VIAL SC PRN (16:59)
[2022-04-10] MEDS: Atorvastatin Calcium 40 MG TAB PO SCH (21:11)
[2022-04-10] MEDS: Insulin Glargine 30 UNITS/0.3 ML VIAL SC SCH (21:12)
[2022-04-11] MEDS: HYDROcodone/Acetaminophen 5/325 mg Tablet PO PRN ×4 (03:04→21:47)
[2022-04-11] MEDS: Meropenem 1 GM in Sodium Chloride 0.9% 100 ML IVPB SCH ×2 (05:54→17:47)
[2022-04-11] MEDS: Gabapentin 300 MG CAP PO SCH ×2 (08:06→21:21)
[2022-04-11] MEDS: Clopidogrel Bisulfate 75 MG TAB PO SCH (08:06)
[2022-04-11] MEDS: Carvedilol 25 MG TAB PO SCH ×2 (08:07→21:23)
[2022-04-11] MEDS: Aspirin 81 mg Enteric Coated Tablet PO SCH (08:07)
[2022-04-11] MEDS: hydrALAZINE 25 MG TAB PO SCH ×3 (08:07→21:22)
[2022-04-11] MEDS: Famotidine 20 MG TAB PO SCH (08:07)
[2022-04-11] MEDS: Spironolactone 25 MG TAB PO SCH (08:07)
[2022-04-11] MEDS: Ezetimibe 10 MG TAB PO SCH (08:07)
[2022-04-11] MEDS: Atorvastatin Calcium 40 MG TAB PO SCH (21:21)
[2022-04-11] MEDS: Insulin Glargine 30 UNITS/0.3 ML VIAL SC SCH (21:23)
[2022-04-12] MEDS: HYDROcodone/Acetaminophen 5/325 mg Tablet PO PRN ×3 (05:02→20:13)
[2022-04-12] MEDS: Meropenem 1 GM in Sodium Chloride 0.9% 100 ML IVPB SCH ×2 (05:14→17:14)
[2022-04-12 06:26] LABS: #Eosinphils 0.1 thou/uL (0.0-0.7); #Lymphocytes 1.5 thou/uL (1.20-3.40); #Monocytes 0.8 thou/uL (0.11-0.59); #Neutrophils 5.8 thou/uL (1.40-6.50); %Eosinophils 1.8 % (0.0-10.0); %Lymphocytes 17.8 % (21.0-51.0); %Monocytes 10.2 % (0.0-10.0); %Neutrophils 70.2 % (42.0-75.0); Hemoglobin 7.5 g/dL (12.0-16.0); Mean Corpuscular HGB CONC 31.9 g/dL (32.0-36.0); Mean Corpuscular Hemoglobin 31.3 pg (27.0-31.0); Mean Corpuscular Volume 98.3 fL (78.0-98.0); Mean Platelet Volume 7.7 fL (7.4-10.4); Platelet Count 248 thou/uL (130-400); RBC Distribution Width 14.4 % (11.5-14.5); Red Blood Cell (RBC) Count 2.39 mill/uL (4.20-5.40); White Blood Cell (WBC) Count 8.3 thou/uL (4.8-10.8)
[2022-04-12 06:47] LABS: ALT (SGPT) Less than 7 U/L (8-55); AST (SGOT) 8 U/L (5-34); Alkaline Phosphatase 112 U/L (40-110); Anion Gap 15 mmol/L (10-20); BUN (Urea Nitrogen) 40 mg/dL (9.8-20.1); Bilirubin, Total 0.2 mg/dL (0.2-1.2); Calc. Creatinine Clearance 44 mL/min (70-130); Calcium 8.3 mg/dL (7.8-10.44); Carbon Dioxide 26 mmol/L (22-29); Chloride 105 mmol/L (98-107); Estimated GFR 27; Glucose 123 mg/dL (70-105); Potassium 4.5 mmol/L (3.5-5.1); Sodium 141 mmol/L (136-145)
[2022-04-12] MEDS: Ezetimibe 10 MG TAB PO SCH (08:28)
[2022-04-12] MEDS: Clopidogrel Bisulfate 75 MG TAB PO SCH (08:28)
[2022-04-12] MEDS: hydrALAZINE 25 MG TAB PO SCH ×3 (08:28→20:11)
[2022-04-12] MEDS: Famotidine 20 MG TAB PO SCH (08:28)
[2022-04-12] MEDS: Gabapentin 300 MG CAP PO SCH ×2 (08:28→20:12)
[2022-04-12] MEDS: Carvedilol 25 MG TAB PO SCH ×2 (08:28→20:11)
[2022-04-12] MEDS: Aspirin 81 mg Enteric Coated Tablet PO SCH (08:28)
[2022-04-12] MEDS: Atorvastatin Calcium 40 MG TAB PO SCH (20:11)
[2022-04-12] MEDS: Insulin Glargine 30 UNITS/0.3 ML VIAL SC SCH (20:18)
[2022-04-13] MEDS: Meropenem 1 GM in Sodium Chloride 0.9% 100 ML IVPB SCH (05:10)
[2022-04-13 07:15] LABS: #Eosinphils 0.1 thou/uL (0.0-0.7); #Lymphocytes 1.2 thou/uL (1.20-3.40); #Monocytes 0.6 thou/uL (0.11-0.59); #Neutrophils 4.9 thou/uL (1.40-6.50); %Basophils 0.2 % (0.0-1.0); %Eosinophils 1.8 % (0.0-10.0); %Lymphocytes 17.7 % (21.0-51.0); %Monocytes 8.7 % (0.0-10.0); %Neutrophils 71.7 % (42.0-75.0); Hemoglobin 7.6 g/dL (12.0-16.0); Mean Corpuscular HGB CONC 32.3 g/dL (32.0-36.0); Mean Corpuscular Volume 99.1 fL (78.0-98.0); Mean Platelet Volume 7.8 fL (7.4-10.4); Platelet Count 245 thou/uL (130-400); RBC Distribution Width 14.1 % (11.5-14.5); Red Blood Cell (RBC) Count 2.38 mill/uL (4.20-5.40); White Blood Cell (WBC) Count 6.9 thou/uL (4.8-10.8)
[2022-04-13 07:35] LABS: Anion Gap 14 mmol/L (10-20); BUN (Urea Nitrogen) 42 mg/dL (9.8-20.1); CRP (Inflammatory) 1.55 mg/dL (= or < 0.5); Calc. Creatinine Clearance 48 mL/min (70-130); Calcium 8.6 mg/dL (7.8-10.44); Carbon Dioxide 27 mmol/L (22-29); Chloride 105 mmol/L (98-107); Estimated GFR 31; Glucose 116 mg/dL (70-105); Potassium 4.8 mmol/L (3.5-5.1); Sodium 141 mmol/L (136-145)
[2022-04-13] MEDS: Ezetimibe 10 MG TAB PO SCH (08:33)
[2022-04-13] MEDS: Aspirin 81 mg Enteric Coated Tablet PO SCH (08:34)
[2022-04-13] MEDS: Gabapentin 300 MG CAP PO SCH (08:34)
[2022-04-13] MEDS: Clopidogrel Bisulfate 75 MG TAB PO SCH (08:34)
[2022-04-13] MEDS: Carvedilol 25 MG TAB PO SCH (08:34)
[2022-04-13] MEDS: Famotidine 20 MG TAB PO SCH (08:34)
[2022-04-13] MEDS: HYDROcodone/Acetaminophen 5/325 mg Tablet PO PRN ×2 (08:40→12:35)
[2022-04-13] MEDS: hydrALAZINE 25 MG TAB PO SCH ×2 (08:40→16:00)
[2022-04-13] MEDS ORDERED: Morphine 2 MG/ML VIAL SLOW IVP SCH (11:30)
[2022-04-13] MEDS ORDERED: Morphine 2 MG/ML VIAL SLOW IVP PRN (11:30)
[2022-04-13] MEDS ORDERED: Meropenem 1 GM in Sodium Chloride 0.9% 100 ML IVPB SCH (15:45)
[2022-04-13 17:24] VITALS: BP 150/58; TEMP 97.9
[2022-04-14] MEDS ORDERED: Meropenem 1 GM in Sodium Chloride 0.9% 100 ML IVPB SCH (04:00)
== END 2022-04-13 18:21 | disposition home health service (06) | DRG 628 ==
LOC: SDC 08:14 → T4-B 13:38
PROVIDERS: ADMIT Family Medicine; ATTEND Internal Medicine
PROC: 0QBM0ZZ Excision of Left Tarsal, Open Approach (ICD-10-PCS; principal; 2022-04-08)
PROC: 02HV33Z Insertion of Infusion Device into Superior Vena Cava, Percutaneous Approach (ICD-10-PCS; 2022-04-08)
PROC: B548ZZA Ultrasonography of Superior Vena Cava, Guidance (ICD-10-PCS; 2022-04-08)
PROC: B5181ZA Fluoroscopy of Superior Vena Cava using Low Osmolar Contrast, Guidance (ICD-10-PCS; 2022-04-08)
PROC: 0JH63XZ Insertion of Tunneled Vascular Access Device into Chest Subcutaneous Tissue and Fascia, Percutaneous Approach (ICD-10-PCS; 2022-04-08)
DX: E11.69 Type 2 diabetes mellitus with other specified complication (principal); L89.623 Pressure ulcer of left heel, stage 3; M86.8X6 Other osteomyelitis, lower leg; I50.42 Chronic combined systolic (congestive) and diastolic (congestive) heart failure; I42.8 Other cardiomyopathies; I13.0 Hypertensive heart and chronic kidney disease with heart failure and stage 1 through stage 4 chronic kidney disease, or unspecified chronic kidney disease; Z20.822 Contact with and (suspected) exposure to COVID-19; J44.9 Chronic obstructive pulmonary disease, unspecified; F32.A Depression, unspecified; F41.9 Anxiety disorder, unspecified; N18.30 Chronic kidney disease, stage 3 unspecified; E11.22 Type 2 diabetes mellitus with diabetic chronic kidney disease; I25.10 Atherosclerotic heart disease of native coronary artery without angina pectoris; E11.51 Type 2 diabetes mellitus with diabetic peripheral angiopathy without gangrene; E11.621 Type 2 diabetes mellitus with foot ulcer; L97.529 Non-pressure chronic ulcer of other part of left foot with unspecified severity; Z89.421 Acquired absence of other right toe(s); Z90.89 Acquired absence of other organs; Z88.8 Allergy status to other drugs, medicaments and biological substances; Z79.4 Long term (current) use of insulin; Z79.899 Other long term (current) drug therapy; Z79.02 Long term (current) use of antithrombotics/antiplatelets; Z79.82 Long term (current) use of aspirin; Z95.1 Presence of aortocoronary bypass graft; Z95.810 Presence of automatic (implantable) cardiac defibrillator; Z82.49 Family history of ischemic heart disease and other diseases of the circulatory system
CPT/HCPCS: 36415; 36416; 71045; 80048; 80053; 85025; 85652; 86140; 87070; 87186; 87205; 87811; 93005; 93010; 97139; C1713; C1751; J1100; J1200; J1642; J1644; J1815; J2185; J2250; J2270; J2370; J2704; J3490

== ENCOUNTER 2022-06-23 13:09 | Inpatient (IN) | payer MEDICARE ==
[2022-06-23 15:38] VITALS: BMI 35.1
[2022-06-23] MEDS ORDERED: FLU VACC QS2022-23(6MOS UP)/PF 60 MCG/0.5 ML SYRINGE IM ONE (16:15)
[2022-06-23] MEDS ORDERED: HYDROcodone/Acetaminophen 7.5/325 mg Tablet PO PRN (16:38)
[2022-06-23] MEDS ORDERED: Acetaminophen 325 MG TAB PO PRN (16:38)
[2022-06-23] MEDS ORDERED: Enoxaparin Sodium 40 MG/0.4 ML SYRINGE SC SCH (16:45)
[2022-06-23] MEDS ORDERED: Famotidine 20 MG TAB PO PRN (17:09)
[2022-06-23] MEDS ORDERED: hydrALAZINE 20 MG/ML VIAL SLOW IVP PRN (17:20)
[2022-06-23 17:29] LABS: Actual Bicarbonate (HCO3a) 27.7 mEq/L (22-28); Base Excess (BEa) 3.5 mEq/L (-2.0 to +3.0); CO2 Tension 40.6 mmHg (35.0-45.0); Carboxyhemoglobin (COHb) 1.9 gm% (0.0-3.0); Hemoglobin (Hb) 9.8 g/dL (12.0-16.0); O2 Tension (PaO2), arterial 70.1 mmHg (80.0-100.0); Potassium - ABG Lab 4.21 mmol/L (3.70-5.30); pH, Arterial 7.45 (7.35-7.45)
[2022-06-23 17:31] LABS: Puncture Site LBA
[2022-06-23] MEDS ORDERED: Meropenem 1 GM VIAL IVPB SCH (18:00)
[2022-06-23] MEDS: Furosemide 40 MG/4 ML VIAL SLOW IVP SCH (18:08)
[2022-06-23] MEDS ORDERED: traZODone HCl 50 MG TAB PO PRN (18:29)
[2022-06-23] MEDS ORDERED: Albuterol Sulfate 2.5 mg/3 ml Neb NEB PRN (18:35)
[2022-06-23 19:04] LABS: CKMB 2.4 ng/mL (0-6.6)
[2022-06-23] MEDS: Atorvastatin Calcium 40 MG TAB PO SCH (21:12)
[2022-06-23] MEDS: Carvedilol 25 MG TAB PO SCH (21:12)
[2022-06-23] MEDS ORDERED: Meropenem 1 GM in Sodium Chloride 0.9% 100 ML IVPB SCH (22:00)
[2022-06-24] MEDS: Acetaminophen/Codeine 30-300mg Tablet PO PRN ×2 (00:57→09:46)
[2022-06-24] MEDS ORDERED: Dextrose 50% Abboject 50 ML SYRINGE SLOW IVP PRN ×2 (01:43→05:35)
[2022-06-24] MEDS ORDERED: Dextrose 5% in Water 1,000 ML IV PRN ×2 (01:43→05:35)
[2022-06-24] MEDS: Ondansetron PF 4 MG/2 ML Vial IVP PRN ×3 (05:07→23:23)
[2022-06-24] MEDS: Furosemide 40 MG/4 ML VIAL SLOW IVP SCH ×2 (05:07→18:42)
[2022-06-24] MEDS ORDERED: HumaLOG 300 UNITS/3 ML VIAL SC PRN ×2 (05:35)
[2022-06-24] MEDS: Aspirin 81 mg Enteric Coated Tablet PO SCH (09:35)
[2022-06-24] MEDS: Carvedilol 25 MG TAB PO SCH ×2 (09:35→21:05)
[2022-06-24] MEDS: Clopidogrel Bisulfate 75 MG TAB PO SCH (09:36)
[2022-06-24] MEDS: Enoxaparin Sodium 40 MG/0.4 ML SYRINGE SC SCH (09:36)
[2022-06-24] MEDS: Ezetimibe 10 MG TAB PO SCH (09:36)
[2022-06-24] MEDS: FLUoxetine HCl 20 MG CAP PO SCH (09:37)
[2022-06-24] MEDS: Multivitamin W/ Minerals 1 TAB PO SCH (09:38)
[2022-06-24] MEDS: Insulin Glargine 30 UNITS/0.3 ML VIAL SC SCH (18:36)
[2022-06-24] MEDS ORDERED: Meropenem 1 GM in Sodium Chloride 0.9% 100 ML IVPB SCH (20:00)
[2022-06-24] MEDS: Gabapentin 300 MG CAP PO SCH (21:05)
[2022-06-24] MEDS: Atorvastatin Calcium 40 MG TAB PO SCH (21:06)
[2022-06-25] MEDS: Meropenem 1 GM in Sodium Chloride 0.9% 100 ML IVPB SCH ×2 (04:59→15:59)
[2022-06-25] MEDS: Furosemide 40 MG/4 ML VIAL SLOW IVP SCH ×2 (05:00→18:34)
[2022-06-25 05:34] LABS: #Lymphocytes 1.7 thou/uL (1.20-3.40); #Monocytes 0.8 thou/uL (0.11-0.59); #Neutrophils 6.1 thou/uL (1.40-6.50); %Eosinophils 0.2 % (0.0-10.0); %Lymphocytes 19.8 % (21.0-51.0); %Monocytes 9.3 % (0.0-10.0); %Neutrophils 70.7 % (42.0-75.0); Hemoglobin 7.6 g/dL (12.0-16.0); Mean Corpuscular HGB CONC 30.8 g/dL (32.0-36.0); Mean Corpuscular Hemoglobin 30.5 pg (27.0-31.0); Mean Corpuscular Volume 98.9 fl (78.0-98.0); Platelet Count 232 10x3/uL (130-400); RBC Distribution Width 15.7 % (11.5-14.5); Red Blood Cell (RBC) Count 2.51 mill/uL (4.20-5.40); White Blood Cell (WBC) Count 8.6 10x3/uL (4.8-10.8)
[2022-06-25 05:56] LABS: ALT (SGPT) 8 U/L (8-55); AST (SGOT) 8 U/L (5-34); Albumin 2.8 g/dL (3.5-5.0); Alkaline Phosphatase 100 U/L (40-110); Anion Gap 11 mmol/L (10-20); BUN (Urea Nitrogen) 37 mg/dL (9.8-20.1); Bilirubin, Total 0.3 mg/dL (0.2-1.2); Calc. Creatinine Clearance 54 mL/min (70-130); Calcium 8.5 mg/dL (7.8-10.44); Carbon Dioxide 32 mmol/L (22-29); Chloride 99 mmol/L (98-107); Estimated GFR 35; Globulin 3.3 g/dL (2.4-3.5); Glucose 184 mg/dL (70-105); Potassium 3.9 mmol/L (3.5-5.1); Protein, Total 6.1 g/dL (6.0-8.3); Sodium 138 mmol/L (136-145)
[2022-06-25] MEDS: Aspirin 81 mg Enteric Coated Tablet PO SCH (08:19)
[2022-06-25] MEDS: Carvedilol 25 MG TAB PO SCH ×2 (08:20→20:48)
[2022-06-25] MEDS: Ezetimibe 10 MG TAB PO SCH (08:20)
[2022-06-25] MEDS: Gabapentin 300 MG CAP PO SCH ×2 (08:20→20:48)
[2022-06-25] MEDS: FLUoxetine HCl 20 MG CAP PO SCH (08:20)
[2022-06-25] MEDS: Enoxaparin Sodium 40 MG/0.4 ML SYRINGE SC SCH (08:20)
[2022-06-25] MEDS: Clopidogrel Bisulfate 75 MG TAB PO SCH (08:20)
[2022-06-25] MEDS: Multivitamin W/ Minerals 1 TAB PO SCH (08:21)
[2022-06-25] MEDS: Insulin Glargine 30 UNITS/0.3 ML VIAL SC SCH (17:12)
[2022-06-25] MEDS: Atorvastatin Calcium 40 MG TAB PO SCH (20:48)
[2022-06-25] MEDS ORDERED: Furosemide 40 MG/4 ML VIAL SLOW IVP SCH (21:30)
[2022-06-25] MEDS: Acetaminophen/Codeine 30-300mg Tablet PO PRN (23:26)
[2022-06-26] MEDS: Meropenem 1 GM in Sodium Chloride 0.9% 100 ML IVPB SCH (04:58)
[2022-06-26 05:57] LABS: Hemoglobin 8.9 g/dL (12.0-16.0); Mean Corpuscular HGB CONC 32.6 g/dL (32.0-36.0); Mean Corpuscular Hemoglobin 31.8 pg (27.0-31.0); Mean Corpuscular Volume 97.7 fl (78.0-98.0); Mean Platelet Volume 7.9 fL (7.4-10.4); Platelet Count 219 10x3/uL (130-400); RBC Distribution Width 15.7 % (11.5-14.5); Red Blood Cell (RBC) Count 2.79 mill/uL (4.20-5.40); White Blood Cell (WBC) Count 6.9 10x3/uL (4.8-10.8)
[2022-06-26] MEDS ORDERED: Furosemide 40 MG/4 ML VIAL SLOW IVP SCH (06:00)
[2022-06-26 06:21] LABS: Anion Gap 12 mmol/L (10-20); BUN (Urea Nitrogen) 37 mg/dL (9.8-20.1); Calc. Creatinine Clearance 50 mL/min (70-130); Calcium 8.3 mg/dL (7.8-10.44); Carbon Dioxide 32 mmol/L (22-29); Chloride 101 mmol/L (98-107); Estimated GFR 32; Glucose 110 mg/dL (70-105); Potassium 3.8 mmol/L (3.5-5.1); Sodium 141 mmol/L (136-145)
[2022-06-26 08:40] VITALS: BP 148/65; TEMP 97.7
[2022-06-26] MEDS: Carvedilol 25 MG TAB PO SCH (09:09)
[2022-06-26] MEDS: Gabapentin 300 MG CAP PO SCH (09:09)
[2022-06-26] MEDS: Enoxaparin Sodium 40 MG/0.4 ML SYRINGE SC SCH (09:09)
[2022-06-26] MEDS: FLUoxetine HCl 20 MG CAP PO SCH (09:09)
[2022-06-26] MEDS: Aspirin 81 mg Enteric Coated Tablet PO SCH (09:09)
[2022-06-26] MEDS: Clopidogrel Bisulfate 75 MG TAB PO SCH (09:09)
[2022-06-26] MEDS: Ezetimibe 10 MG TAB PO SCH (09:09)
[2022-06-26] MEDS: Multivitamin W/ Minerals 1 TAB PO SCH (09:10)
== END 2022-06-26 12:12 | disposition home or self-care (01) | DRG 291 ==
LOC: 2SW 15:19 → INTOOBSV 15:19 → OBSVTOIN 06-24 17:41
PROVIDERS: ADMIT Internal Medicine; ATTEND Internal Medicine
PROC: 30233N1 Transfusion of Nonautologous Red Blood Cells into Peripheral Vein, Percutaneous Approach (ICD-10-PCS; principal; 2022-06-25)
DX: I13.0 Hypertensive heart and chronic kidney disease with heart failure and stage 1 through stage 4 chronic kidney disease, or unspecified chronic kidney disease (principal); I50.43 Acute on chronic combined systolic (congestive) and diastolic (congestive) heart failure; J96.01 Acute respiratory failure with hypoxia; M86.8X7 Other osteomyelitis, ankle and foot; Z20.822 Contact with and (suspected) exposure to COVID-19; I25.10 Atherosclerotic heart disease of native coronary artery without angina pectoris; J44.9 Chronic obstructive pulmonary disease, unspecified; D63.1 Anemia in chronic kidney disease; N18.30 Chronic kidney disease, stage 3 unspecified; E11.22 Type 2 diabetes mellitus with diabetic chronic kidney disease; L89.622 Pressure ulcer of left heel, stage 2; E11.69 Type 2 diabetes mellitus with other specified complication; Z95.1 Presence of aortocoronary bypass graft; Z88.8 Allergy status to other drugs, medicaments and biological substances; Z79.4 Long term (current) use of insulin; Z79.899 Other long term (current) drug therapy; Z79.82 Long term (current) use of aspirin; Z79.02 Long term (current) use of antithrombotics/antiplatelets
CPT/HCPCS: 36415; 36416; 36430; 36600; 78451; 80048; 80053; 82553; 82805; 85025; 85027; 85379; 86850; 86900; 86901; 93306; 93970; 94640; 96372; 96374; 96375; 96376; 97139; A9540; G0378; J1650; J1815; J1940; J2185; J2405; J3490; J7611; P9016; U0003; U0005

== ENCOUNTER 2024-11-28 08:27 | Day surgery (SDC) | payer MEDICARE, MEDICAID ==
[2024-11-27 11:55] VITALS: BMI 32.5
[~2024-11-28 08:27] MED LIST changes: +EPINEPHrine 0.3 MG in Ophthalmic Irrigation Solution 500 ML IRR SCH; -Heparin 1,000 UNITS/ML VIAL ONE
[2024-11-28] MEDS ORDERED: PHENYLephrine 2.5% Ophth Soln 15 ml Bottle ONE (09:23)
[2024-11-28] MEDS ORDERED: Cyclopentolate 1% Opth Drop 2 ML BOT ONE (09:23)
[2024-11-28] MEDS ORDERED: Midazolam HCl 2 mg/2 ml Vial ONE (09:26)
[2024-11-28] MEDS ORDERED: Etomidate 40 MG (20 mL) VIAL ONE (09:28)
[2024-11-28] MEDS ORDERED: Ondansetron PF 4 MG/2 ML Vial ONE (09:30)
[2024-11-28] MEDS ORDERED: Bupivacaine 0.75% 10 ML VIAL ONE (09:50)
[2024-11-28] MEDS ORDERED: Lidocaine 1% PF 5 ML VIAL ONE (09:50)
[2024-11-28] MEDS ORDERED: Lidocaine 4% PF 5 ML AMP ONE (09:50)
[2024-11-28] MEDS ORDERED: PROPOFOL 200 MG/20 ML VIAL ONE (09:50)
== END 2024-11-28 12:38 | disposition home or self-care (01) ==
LOC: SDC 08:27
PROVIDERS: ATTEND Ophthalmology Retina Specialist
PROC: 08T53ZZ Resection of Left Vitreous, Percutaneous Approach (ICD-10-PCS; principal; 2024-11-28)
PROC: 08NF3ZZ Release Left Retina, Percutaneous Approach (ICD-10-PCS; 2024-11-28)
DX: H33.42 Traction detachment of retina, left eye (principal); Z95.1 Presence of aortocoronary bypass graft; Z90.89 Acquired absence of other organs; Z88.8 Allergy status to other drugs, medicaments and biological substances; Z79.02 Long term (current) use of antithrombotics/antiplatelets; Z79.899 Other long term (current) drug therapy
CPT/HCPCS: 67113; J0171; J2250; J2405; J2704; J3490

== ENCOUNTER 2025-06-11 15:36 | Inpatient (IN) | payer MEDICARE, MEDICAID ==
[2025-06-11 17:37] LABS: #Basophils Less than 0.03 10x3/uL (0.0-0.2); #Eosinophils 0.12 10x3/uL (0.0-0.7); #Monocytes 0.65 10x3/uL (0.11-0.59); #Neutrophils 4.25 10x3/uL (1.40-6.50); %Basophils 0.2 % (0.0-1.0); %Eosinophils 1.9 % (0.0-10.0); %Lymphocytes 21.6 % (21.0-51.0); %Monocytes 10.1 % (0.0-10.0); %Neutrophils 65.9 % (42.0-75.0); Hematocrit 22.3 % (36.0-47.0); Hemoglobin 6.9 g/dL (12.0-16.0); Mean Corpuscular Hemoglobin 30.8 pg (27.0-31.0); Mean Corpuscular Volume 99.6 fL (78.0-98.0); Platelet Count 141 10x3/uL (130-400); Red Blood Cell (RBC) Count 2.24 mill/uL (4.20-5.40); White Blood Cell (WBC) Count 6.44 10x3/uL (4.8-10.8)
[2025-06-11 17:53] LABS: ALT (SGPT) 11 U/L (Less than 34); AST (SGOT) 14 U/L (11-34); Albumin 2.9 g/dL (3.1-4.5); Alkaline Phosphatase 110 U/L (40-110); Anion Gap 19 mmol/L (10-20); BUN (Urea Nitrogen) 106 mg/dL (9.8-20.1); Bilirubin, Total 0.4 mg/dL (0.3-1.2); Calc. Creatinine Clearance 0 mL/min (70-130); Calcium 8.4 mg/dL (7.8-10.44); Carbon Dioxide 23 mmol/L (22-29); Chloride 102 mmol/L (98-107); Globulin 3.6 g/dL (2.4-3.5); Glucose 113 mg/dL (70-105); Potassium 5.6 mmol/L (3.5-5.1); Sodium 138 mmol/L (136-145)
[2025-06-11] MEDS ORDERED: Sodium Bicarb 50 MEQ/50 ML Abboject 8.4% SYRINGE ONE (18:41)
[2025-06-11] MEDS ORDERED: Calcium Chloride 1 GM/10 ML Abboject SYRINGE ONE ×2 (18:41→18:44)
[2025-06-11 20:56] VITALS: BMI 26.6
[2025-06-11] MEDS: Furosemide 40 MG (4 mL) VIAL SLOW IVP SCH (21:36)
[2025-06-11] MEDS: Sodium Polystyrene Sulfonate 15 GM (60 mL) BOT PO SCH (22:00)
[2025-06-11 22:21] LABS: Bacteria/HPF 1+ HPF (None Seen); CAUTI Indications for Culture Dysuria,urgency,freq; Glucose, Urine (Dipstick) Normal (Negative); Leukocyte 75 Leu/uL (Negative); Protein, Urine (Dipstick) 30 mg/dL (Neg-Trace); RBC/HPF 0-3 HPF (0-3); Specific Gravity, Urine 1.011 (1.002-1.036)
[2025-06-11 22:22] LABS: Urine Culture Reflex Yes Yes
[2025-06-11] MEDS: Albumin 25% 25 GM (100 mL) BOT IVPB SCH (23:04)
[2025-06-12 04:03] LABS: #Basophils Less than 0.03 10x3/uL (0.0-0.2); #Eosinophils 0.11 10x3/uL (0.0-0.7); #Monocytes 0.64 10x3/uL (0.11-0.59); #Neutrophils 3.19 10x3/uL (1.40-6.50); %Basophils 0.2 % (0.0-1.0); %Eosinophils 2.0 % (0.0-10.0); %Lymphocytes 27.3 % (21.0-51.0); %Monocytes 11.7 % (0.0-10.0); %Neutrophils 58.4 % (42.0-75.0); Hematocrit 25.7 % (36.0-47.0); Hemoglobin 7.8 g/dL (12.0-16.0); Mean Corpuscular Hemoglobin 29.7 pg (27.0-31.0); Mean Corpuscular Volume 97.7 fL (78.0-98.0); Platelet Count 127 10x3/uL (130-400); Red Blood Cell (RBC) Count 2.63 mill/uL (4.20-5.40); White Blood Cell (WBC) Count 5.46 10x3/uL (4.8-10.8)
[2025-06-12 04:10] LABS: Anion Gap 17 mmol/L (10-20); BUN (Urea Nitrogen) 104 mg/dL (9.8-20.1); Carbon Dioxide 25 mmol/L (22-29); Chloride 104 mmol/L (98-107); Potassium 4.7 mmol/L (3.5-5.1); Sodium 141 mmol/L (136-145)
[2025-06-12 04:11] LABS: Calc. Creatinine Clearance 13 mL/min (70-130); Calcium 8.6 mg/dL (7.8-10.44); Glucose 139 mg/dL (70-105)
[2025-06-12 04:54] LABS: HBSAB Concentration Less than 8.00 mIU/mL; Hep B Core Total Ab NONREACTIVE (NonReactive); Hep B Core Total Index 0.11 S/CO (0-0.79); Hep B Surf Ag NONREACTIVE S/CO (NonReactive); Hep C IgG Ab NONREACTIVE S/CO (NonReactive); Hep C Index 0.16 S/CO (0-0.79)
[2025-06-12] MEDS ORDERED: Tuberculin PPD 0.1 ML SYRINGE (10 TEST VIAL) I-DERMAL SCH (10:30)
[2025-06-12] MEDS: Tuberculin PPD 0.1 ML SYRINGE (10 TEST VIAL) I-DERMAL SCH (12:46)
[2025-06-12] MEDS: EPOETIN ALFA-EPBX (ESRD) 10,000 UNITS/ML VIAL SC SCH (13:35)
[2025-06-12] MEDS ORDERED: Ketamine In 0.9 % NaCl 50 MG/5 ML SYRINGE ONE (17:24)
[2025-06-12] MEDS ORDERED: Lidocaine 1% (PF) 30 ML VIAL ONE (18:00)
[2025-06-12] MEDS ORDERED: Heparin 10,000 UNITS/ 10 ML VIAL ONE (18:16)
[2025-06-12] MEDS: Heparin 10,000 UNITS/ 10 ML VIAL CATH SCH (22:25)
[2025-06-12] MEDS: HYDROmorphone 0.5 MG/0.5 ML SYRINGE SLOW IVP SCH (23:12)
[2025-06-12] MEDS: hydrALAZINE 20 MG/ML VIAL SLOW IVP SCH (23:12)
[2025-06-13] MEDS: Albumin 25% 25 GM (100 mL) BOT IVPB SCH (01:22)
[2025-06-13] MEDS: Mupirocin 1 GM TUBE TP SCH (08:09)
[2025-06-13] MEDS: Ondansetron PF 4 MG/2 ML Vial IVP PRN (08:09)
[2025-06-13] MEDS: Acetaminophen/Codeine 30-300mg Tablet PO PRN (09:52)
[2025-06-13] MEDS: Losartan 25 MG TAB PO SCH (09:54)
[2025-06-13 11:06] LABS: #Basophils Less than 0.03 10x3/uL (0.0-0.2); #Eosinophils Less than 0.03 10x3/uL (0.0-0.7); #Monocytes 0.47 10x3/uL (0.11-0.59); #Neutrophils 5.58 10x3/uL (1.40-6.50); %Basophils 0.1 % (0.0-1.0); %Eosinophils 0.3 % (0.0-10.0); %Lymphocytes 10.0 % (21.0-51.0); %Monocytes 6.9 % (0.0-10.0); %Neutrophils 82.4 % (42.0-75.0); Hematocrit 24.4 % (36.0-47.0); Hemoglobin 7.5 g/dL (12.0-16.0); Mean Corpuscular Hemoglobin 29.8 pg (27.0-31.0); Mean Corpuscular Volume 96.8 fL (78.0-98.0); Platelet Count 109 10x3/uL (130-400); Red Blood Cell (RBC) Count 2.52 mill/uL (4.20-5.40); White Blood Cell (WBC) Count 6.78 10x3/uL (4.8-10.8)
[2025-06-13 11:15] LABS: Albumin 3.6 g/dL (3.1-4.5); Anion Gap 17 mmol/L (10-20); BUN (Urea Nitrogen) 70 mg/dL (9.8-20.1); BUN/Creatinine Ratio 19.72; Calc. Creatinine Clearance 19 mL/min (70-130); Calcium 8.8 mg/dL (7.8-10.44); Carbon Dioxide 24 mmol/L (22-29); Chloride 103 mmol/L (98-107); Glucose 153 mg/dL (70-105); Potassium 4.4 mmol/L (3.5-5.1); Sodium 140 mmol/L (136-145)
[2025-06-13 11:50] LABS: Anisocytosis SLIGHT = 6-15 cells HPF (0-5); Macrocytosis SLIGHT = 6-15 cells HPF (0-5); Microcytosis SLIGHT = 6-15 cells HPF (0-5); Platelet Adequacy Comment Platelets Decreased; Polychromasia SLIGHT = 2-3 cells HPF (0-2); Stomatocytes SLIGHT = 2-5 cells HPF (0-1)
[2025-06-13] MEDS: EPOETIN ALFA-EPBX (ESRD) 10,000 UNITS/ML VIAL IVP SCH (17:14)
[2025-06-14 04:10] LABS: #Basophils Less than 0.03 10x3/uL (0.0-0.2); #Eosinophils 0.10 10x3/uL (0.0-0.7); #Monocytes 0.61 10x3/uL (0.11-0.59); #Neutrophils 3.44 10x3/uL (1.40-6.50); %Basophils 0.2 % (0.0-1.0); %Eosinophils 1.9 % (0.0-10.0); %Lymphocytes 19.1 % (21.0-51.0); %Monocytes 11.8 % (0.0-10.0); %Neutrophils 66.6 % (42.0-75.0); Hematocrit 22.7 % (36.0-47.0); Hemoglobin 7.1 g/dL (12.0-16.0); Mean Corpuscular Hemoglobin 30.0 pg (27.0-31.0); Mean Corpuscular Volume 95.8 fL (78.0-98.0); Platelet Count 95 10x3/uL (130-400); Red Blood Cell (RBC) Count 2.37 mill/uL (4.20-5.40); White Blood Cell (WBC) Count 5.17 10x3/uL (4.8-10.8)
[2025-06-14 04:21] LABS: Albumin 3.2 g/dL (3.1-4.5); Anion Gap 15 mmol/L (10-20); BUN (Urea Nitrogen) 51 mg/dL (9.8-20.1); BUN/Creatinine Ratio 18.02; Calc. Creatinine Clearance 23 mL/min (70-130); Calcium 8.6 mg/dL (7.8-10.44); Carbon Dioxide 28 mmol/L (22-29); Chloride 101 mmol/L (98-107); Glucose 197 mg/dL (70-105); Potassium 4.1 mmol/L (3.5-5.1); Sodium 140 mmol/L (136-145)
[2025-06-14] MEDS: Losartan 25 MG TAB PO SCH (08:07)
[2025-06-14] MEDS: EPOETIN ALFA-EPBX (ESRD) 10,000 UNITS/ML VIAL SC SCH (10:27)
[2025-06-15 04:41] LABS: #Basophils Less than 0.03 10x3/uL (0.0-0.2); #Eosinophils 0.16 10x3/uL (0.0-0.7); #Monocytes 0.67 10x3/uL (0.11-0.59); #Neutrophils 4.70 10x3/uL (1.40-6.50); %Basophils 0.1 % (0.0-1.0); %Eosinophils 2.3 % (0.0-10.0); %Lymphocytes 18.3 % (21.0-51.0); %Monocytes 9.8 % (0.0-10.0); %Neutrophils 69.1 % (42.0-75.0); Hematocrit 25.6 % (36.0-47.0); Hemoglobin 8.0 g/dL (12.0-16.0); Mean Corpuscular Hemoglobin 29.6 pg (27.0-31.0); Mean Corpuscular Volume 94.8 fL (78.0-98.0); Platelet Count 106 10x3/uL (130-400); Red Blood Cell (RBC) Count 2.70 mill/uL (4.20-5.40); White Blood Cell (WBC) Count 6.82 10x3/uL (4.8-10.8)
[2025-06-15 04:49] LABS: Albumin 3.4 g/dL (3.1-4.5); Anion Gap 15 mmol/L (10-20); BUN (Urea Nitrogen) 61 mg/dL (9.8-20.1); BUN/Creatinine Ratio 18.48; Calc. Creatinine Clearance 18 mL/min (70-130); Calcium 9.0 mg/dL (7.8-10.44); Carbon Dioxide 28 mmol/L (22-29); Chloride 103 mmol/L (98-107); Glucose 123 mg/dL (70-105); Potassium 4.0 mmol/L (3.5-5.1); Sodium 142 mmol/L (136-145)
[2025-06-15] MEDS: READ PPD TEST SITE PO SCH (08:45)
[2025-06-15] MEDS: Losartan 25 MG TAB PO SCH (21:17)
[2025-06-16 04:37] LABS: #Basophils Less than 0.03 10x3/uL (0.0-0.2); #Eosinophils 0.14 10x3/uL (0.0-0.7); #Monocytes 0.79 10x3/uL (0.11-0.59); #Neutrophils 4.05 10x3/uL (1.40-6.50); %Basophils 0.3 % (0.0-1.0); %Eosinophils 2.2 % (0.0-10.0); %Lymphocytes 19.9 % (21.0-51.0); %Monocytes 12.6 % (0.0-10.0); %Neutrophils 64.5 % (42.0-75.0); Hematocrit 26.2 % (36.0-47.0); Hemoglobin 8.4 g/dL (12.0-16.0); Mean Corpuscular Hemoglobin 30.7 pg (27.0-31.0); Mean Corpuscular Volume 95.6 fL (78.0-98.0); Platelet Count 119 10x3/uL (130-400); Red Blood Cell (RBC) Count 2.74 mill/uL (4.20-5.40); White Blood Cell (WBC) Count 6.28 10x3/uL (4.8-10.8)
[2025-06-16 04:51] LABS: Albumin 3.3 g/dL (3.1-4.5); Anion Gap 16 mmol/L (10-20); BUN (Urea Nitrogen) 67 mg/dL (9.8-20.1); BUN/Creatinine Ratio 20.06; Calc. Creatinine Clearance 18 mL/min (70-130); Calcium 8.9 mg/dL (7.8-10.44); Carbon Dioxide 26 mmol/L (22-29); Chloride 101 mmol/L (98-107); Glucose 133 mg/dL (70-105); Potassium 3.9 mmol/L (3.5-5.1); Sodium 139 mmol/L (136-145)
[2025-06-17 04:11] LABS: Albumin 3.3 g/dL (3.1-4.5); Anion Gap 13 mmol/L (10-20); BUN (Urea Nitrogen) 27 mg/dL (9.8-20.1); BUN/Creatinine Ratio 14.67; Calc. Creatinine Clearance 34 mL/min (70-130); Calcium 9.1 mg/dL (7.8-10.44); Carbon Dioxide 29 mmol/L (22-29); Chloride 99 mmol/L (98-107); Glucose 135 mg/dL (70-105); Potassium 4.1 mmol/L (3.5-5.1); Sodium 137 mmol/L (136-145)
[2025-06-17] MEDS: QUEtiapine 25 MG TAB PO SCH (20:11)
[2025-06-18 03:45] LABS: Albumin 3.3 g/dL (3.1-4.5); Anion Gap 14 mmol/L (10-20); BUN (Urea Nitrogen) 34 mg/dL (9.8-20.1); BUN/Creatinine Ratio 14.05; Calc. Creatinine Clearance 25 mL/min (70-130); Calcium 9.1 mg/dL (7.8-10.44); Carbon Dioxide 26 mmol/L (22-29); Chloride 100 mmol/L (98-107); Glucose 127 mg/dL (70-105); Potassium 4.1 mmol/L (3.5-5.1); Sodium 136 mmol/L (136-145)
[2025-06-18 16:31] VITALS: BMI 24.2
[2025-06-19 04:49] LABS: Albumin 3.4 g/dL (3.1-4.5); Anion Gap 14 mmol/L (10-20); BUN (Urea Nitrogen) 24 mg/dL (9.8-20.1); BUN/Creatinine Ratio 11.94; Calc. Creatinine Clearance 30 mL/min (70-130); Calcium 9.1 mg/dL (7.8-10.44); Carbon Dioxide 27 mmol/L (22-29); Chloride 99 mmol/L (98-107); Glucose 118 mg/dL (70-105); Potassium 3.7 mmol/L (3.5-5.1); Sodium 136 mmol/L (136-145)
[2025-06-19 09:37] LABS: #Basophils Less than 0.03 10x3/uL (0.0-0.2); #Eosinophils 0.12 10x3/uL (0.0-0.7); #Monocytes 0.99 10x3/uL (0.11-0.59); #Neutrophils 4.25 10x3/uL (1.40-6.50); %Basophils 0.2 % (0.0-1.0); %Eosinophils 1.8 % (0.0-10.0); %Lymphocytes 19.1 % (21.0-51.0); %Monocytes 14.9 % (0.0-10.0); %Neutrophils 63.7 % (42.0-75.0); Hematocrit 27.8 % (36.0-47.0); Hemoglobin 8.5 g/dL (12.0-16.0); Mean Corpuscular Hemoglobin 30.7 pg (27.0-31.0); Mean Corpuscular Volume 100.4 fL (78.0-98.0); Platelet Count 136 10x3/uL (130-400); Red Blood Cell (RBC) Count 2.77 mill/uL (4.20-5.40); White Blood Cell (WBC) Count 6.66 10x3/uL (4.8-10.8)
[2025-06-19] MEDS: Acetaminophen 325 MG TAB PO PRN (10:03)
[2025-06-20] MEDS ORDERED: Carvedilol 6.25 MG TAB PO SCH (08:00)
[2025-06-20] MEDS: Carvedilol 25 MG TAB PO SCH (09:00)
[2025-06-20] MEDS: Mupirocin 1 GM TUBE NASAL DECOLONIZATION NASAL SCH (09:45)
[2025-06-20 13:52] VITALS: TEMP 98
[2025-06-20 14:32] VITALS: BP 182/77
== END 2025-06-20 15:50 | DRG 673 ==
LOC: ERS 15:36 → PCU 18:35 → 2NO 06-19 18:47
PROVIDERS: ADMIT Family Medicine; ATTEND Family Medicine
PROC: 0JH63XZ Insertion of Tunneled Vascular Access Device into Chest Subcutaneous Tissue and Fascia, Percutaneous Approach (ICD-10-PCS; principal; 2025-06-11)
PROC: 02HV33Z Insertion of Infusion Device into Superior Vena Cava, Percutaneous Approach (ICD-10-PCS; 2025-06-11)
PROC: B548ZZA Ultrasonography of Superior Vena Cava, Guidance (ICD-10-PCS; 2025-06-11)
DX: N17.9 Acute kidney failure, unspecified (principal); I50.43 Acute on chronic combined systolic (congestive) and diastolic (congestive) heart failure; J96.01 Acute respiratory failure with hypoxia; I13.2 Hypertensive heart and chronic kidney disease with heart failure and with stage 5 chronic kidney disease, or end stage renal disease; I5A Non-ischemic myocardial injury (non-traumatic); N18.6 End stage renal disease; I25.10 Atherosclerotic heart disease of native coronary artery without angina pectoris; Z98.890 Other specified postprocedural states; Z95.1 Presence of aortocoronary bypass graft; E78.5 Hyperlipidemia, unspecified; J44.9 Chronic obstructive pulmonary disease, unspecified; E11.9 Type 2 diabetes mellitus without complications; Z88.8 Allergy status to other drugs, medicaments and biological substances; Z87.891 Personal history of nicotine dependence; E87.5 Hyperkalemia; E88.09 Other disorders of plasma-protein metabolism, not elsewhere classified; E87.70 Fluid overload, unspecified; D63.1 Anemia in chronic kidney disease; I27.20 Pulmonary hypertension, unspecified; D69.6 Thrombocytopenia, unspecified; R53.81 Other malaise; R11.0 Nausea; E11.21 Type 2 diabetes mellitus with diabetic nephropathy
CPT/HCPCS: 36415; 36416; 36430; 71045; 76770; 80048; 80053; 80069; 81001; 83880; 84484; 85025; 86580; 86704; 86706; 86803; 86850; 86900; 86901; 87077; 87086; 87340; 90935; 93005; 93306; 96374; 96375; C1752; G0257; J0360; J1171; J1642; J1644; J1940; J2003; J2250; J2405; J2550; J3010; J3373; J3490; P9016; P9047; Q0162; Q5105

== ENCOUNTER 2025-07-07 14:02 | Emergency (ER) | payer MEDICARE, MEDICAID ==
[2025-07-07 15:49] LABS: CAUTI Indications for Culture Dysuria,urgency,freq; Glucose, Urine (Dipstick) 100 mg/dL (Negative); Leukocyte 250 Leu/uL (Negative); Protein, Urine (Dipstick) 100 mg/dL (Neg-Trace); Specific Gravity, Urine 1.013 (1.002-1.036)
[2025-07-07 15:55] LABS: #Basophils Less than 0.03 10x3/uL (0.0-0.2); #Eosinophils 0.09 10x3/uL (0.0-0.7); #Monocytes 0.63 10x3/uL (0.11-0.59); #Neutrophils 6.06 10x3/uL (1.40-6.50); %Basophils 0.3 % (0.0-1.0); %Eosinophils 1.2 % (0.0-10.0); %Lymphocytes 11.4 % (21.0-51.0); %Monocytes 8.2 % (0.0-10.0); %Neutrophils 78.3 % (42.0-75.0); Hematocrit 21.9 % (36.0-47.0); Hemoglobin 6.6 g/dL (12.0-16.0); Mean Corpuscular Hemoglobin 30.7 pg (27.0-31.0); Mean Corpuscular Volume 101.9 fL (78.0-98.0); Platelet Count 268 10x3/uL (130-400); Red Blood Cell (RBC) Count 2.15 mill/uL (4.20-5.40); White Blood Cell (WBC) Count 7.73 10x3/uL (4.8-10.8)
[2025-07-07 15:57] LABS: Bacteria/HPF 1+ HPF (None Seen)
[2025-07-07 16:00] LABS: Yeast-Budding 1+ HPF (None Seen)
[2025-07-07 16:01] LABS: Urine Culture Reflex No No
[2025-07-07 16:10] LABS: ALT (SGPT) 8 U/L (Less than 34); AST (SGOT) 8 U/L (11-34); Albumin 3.0 g/dL (3.1-4.5); Alkaline Phosphatase 107 U/L (40-110); Anion Gap 14 mmol/L (10-20); BUN (Urea Nitrogen) 58 mg/dL (9.8-20.1); Bilirubin, Total 0.5 mg/dL (0.3-1.2); Calc. Creatinine Clearance 0 mL/min (70-130); Calcium 8.3 mg/dL (7.8-10.44); Carbon Dioxide 24 mmol/L (22-29); Chloride 104 mmol/L (98-107); Globulin 3.1 g/dL (2.4-3.5); Glucose 217 mg/dL (70-105); Magnesium 2.5 mg/dL (1.6-2.6); Potassium 5.1 mmol/L (3.5-5.1); Sodium 137 mmol/L (136-145)
[2025-07-07 17:30] LABS: Actual Bicarbonate (HCO3v) 22.9 mEq/L (22-28); Base Excess -2.5 mEq/L (-2.0 to +3.0); Calcium, Ionized (venous) 1.14 mmol/L (1.16-1.32); Hematocrit-VBG 21 % (36.0-47.0); Hemoglobin (Hb) 7.3 g/dL (11.7-16.0); Potassium (VBG) 4.85 mmol/L (3.70-5.30); Sodium 136 mmol/L (133-146)
[2025-07-07] MEDS ORDERED: Furosemide 40 MG (4 mL) VIAL ONE (18:00)
== END 2025-07-08 00:52 | disposition home or self-care (01) ==
LOC: ERS 14:02
DX: I13.2 Hypertensive heart and chronic kidney disease with heart failure and with stage 5 chronic kidney disease, or end stage renal disease (principal); I50.9 Heart failure, unspecified; E11.22 Type 2 diabetes mellitus with diabetic chronic kidney disease; D63.1 Anemia in chronic kidney disease; N18.6 End stage renal disease; J44.9 Chronic obstructive pulmonary disease, unspecified; E78.00 Pure hypercholesterolemia, unspecified; Z79.82 Long term (current) use of aspirin; Z99.2 Dependence on renal dialysis; Z79.899 Other long term (current) drug therapy
CPT/HCPCS: 36430; 71045; 80053; 81001; 82805; 83735; 83880; 84484; 85025; 86850; 86900; 86901; 86920; 93005; J1940; P9016; 96374